=== PATIENT | female | born 1990 ===

== ENCOUNTER 2020-07-09 15:45 | Outpatient (REF) | payer MEDICARE, MEDICAID, SELFPAY | END 2020-07-09 15:46 | disposition home or self-care (01) | LOC: HO.LNP 15:45 | PROVIDERS: Visit Provider Nurse Practitioner Family | DX: Z20.828 Contact with and (suspected) exposure to other viral communicable diseases (principal); J40 Bronchitis, not specified as acute or chronic | CPT/HCPCS: U0003 ==

== ENCOUNTER 2020-09-23 17:11 | Outpatient (REF) | payer MEDICARE, MEDICAID, SELFPAY ==
[2020-09-23 17:44] LABS: MANUAL DIFF FLAG NO
[2020-09-23 17:54] LABS: Basophils Percent Auto 0.5 % (0-2); Eosinophils Absolute Auto 0.4 X10*3/uL (0.0-0.4); Eosinophils Percent Auto 5.7 % (0-4); Hematocrit 46.5 % (37-47); Hemoglobin 14.9 g/dl (12.0-16.0); Imm Gran Abs Auto 0.01 X10*3/uL (0.00-0.03); Imm Gran Pct Auto 0.2 % (0.0-0.4); Lymphocytes Absolute Auto 3.5 X10*3/uL (1.2-4.9); Lymphocytes Percent Auto 52.3 % (20-40); Mean Corpuscular Volume 90.6 fL (80-98); Mean Platelet Volume 9.2 fL (9.4-12.3); Monocytes Absolute Auto 0.6 X10*3/uL (0.1-1.2); Monocytes Percent Auto 9.3 % (2-11); Neutrophils Absolute Auto 2.1 X10*3/uL (2.0-8.3); Platelet Count 274 X10*3/uL (160-400); Red Blood Count 5.13 X10*6/uL (4.20-5.50); Red Cell Distribution Width 12.5 % (11.0-16.0); White Blood Count 6.6 X10*3/uL (4.8-10.8)
[2020-09-23 18:09] LABS: Alanine Aminotransferase 15 U/L (0-31); Albumin Level 4.7 g/dL (3.5-5.0); Alkaline Phosphatase 70 U/L (39-117); Anion Gap 12 (12-20); Aspartate Amino Transferase 14 U/L (5-31); Bilirubin Total 0.4 mg/dL (0.0-1.0); Blood Urea Nitrogen 10 mg/dL (9-16); Calcium 9.7 mg/dL (8.4-10.2); Carbon Dioxide 28 mmol/L (22-29); Chloride 104 mmol/L (96-108); Estimated Glomerular Filt Rate > 60; Glucose Random 92 mg/dL (60-115); Potassium 3.9 mmol/l (3.3-5.1); Sodium 140 mmol/L (135-145); Total Protein 7.4 g/dL (6.5-8.0)
[2020-09-23 18:30] LABS: Free T4 (Free Thyroxine) 1.07 ng/dL (0.71-1.85); Thyroid Stimulating Hormone 3.39 uIU/mL (0.32-4.0); Vitamin D 25-OH Total 27.3 ng/mL (>30)
== END 2020-09-23 17:12 | disposition home or self-care (01) ==
LOC: HO.LAB 17:11
PROVIDERS: PCP Internal Medicine; Visit Provider Internal Medicine
DX: R35.0 Frequency of micturition (principal); E03.9 Hypothyroidism, unspecified
CPT/HCPCS: 36415; 80053; 82306; 84439; 84443; 85025

== ENCOUNTER 2021-12-24 15:45 | Outpatient (REF) | payer MEDICARE, MEDICAID, SELFPAY ==
[2021-12-24 16:52] LABS: Alanine Aminotransferase 11 U/L (0-31); Albumin Level 4.3 g/dL (3.5-5.0); Alkaline Phosphatase 66 U/L (39-117); Anion Gap 12 (12-20); Aspartate Amino Transferase 13 U/L (5-31); Bilirubin Total 0.3 mg/dL (0.0-1.0); Blood Urea Nitrogen 9 mg/dL (9-16); Calcium 9.7 mg/dL (8.4-10.2); Carbon Dioxide 26 mmol/L (22-29); Chloride 104 mmol/L (96-108); Cholesterol 128 mg/dL; Estimated Glomerular Filt Rate > 60; Glucose Fasting 93 mg/dL (60-99); HDL Cholesterol 33 mg/dL; LDL Cholesterol Calculated 86 mg/dl; Potassium 4.1 mmol/L (3.3-5.1); Sodium 138 mmol/L (135-145); Total Protein 7.1 g/dL (6.5-8.0); Triglycerides 48 mg/dL
[2021-12-24 17:08] LABS: Appearance Urine CLEAR; Color Urine YELLOW; Glucose Urine UA NEG (NEG); Leukocyte Esterase Urine 1+ (NEG); Nitrite Urine NEG (NEG); UACC Culture Trigger YES; Urine Blood NEG (NEG); Urine Ketones NEG (NEG); Urine Protein NEG (NEG-TRACE)
[2021-12-24 17:31] LABS: RBC Urine 0-2 /HPF (0); WBC Urine 0-2 /HPF (0-4)
[2021-12-24 17:32] LABS: Squamous Epithelial Cell Urine TRACE /LPF
== END 2021-12-24 15:46 | disposition home or self-care (01) ==
LOC: HO.LAB 15:45
PROVIDERS: Nurse Practitioner Family; PCP Internal Medicine; Visit Provider Internal Medicine
DX: R35.0 Frequency of micturition (principal); Z13.220 Encounter for screening for lipoid disorders; Z13.1 Encounter for screening for diabetes mellitus
CPT/HCPCS: 36415; 80053; 80061; 81001; 87086

== ENCOUNTER → 2022-04-22 11:04 | Outpatient (BNVA) | payer MEDICARE, MEDICAID, SELFPAY | PROVIDERS: PCP Internal Medicine; Visit Provider Urology | DX: R32 Unspecified urinary incontinence (principal); R35.0 Frequency of micturition; R39.11 Hesitancy of micturition; R39.15 Urgency of urination; R15.9 Full incontinence of feces; Z79.899 Other long term (current) drug therapy | CPT/HCPCS: 51798; 99212 ==

== ENCOUNTER 2022-11-04 11:42 | Outpatient (REF) | payer MEDICARE, MEDICAID, SELFPAY ==
[2022-11-04 12:10] LABS: Appearance Urine Clear; Color Urine Yellow; Glucose Urine UA Negative (Negative); Leukocyte Esterase Urine Trace (Negative); Nitrite Urine Negative (Negative); PH 6.5 (5.0-9.0); UMIC TRIGGER UACC YES; Urine Blood Negative (Negative); Urine Ketones Negative (Negative); Urine Protein Negative (Neg-Trace)
[2022-11-04 12:12] LABS: Bacteria Urine None Seen (None Seen); Hyaline Casts Urine 0-2 /LPF (0-2); RBC Urine 0-2 /HPF (0-2); Squamous Epithelial Cell Urine 0-2 /HPF (0-2); WBC Urine 0-5 /HPF (0-5)
== END 2022-11-04 11:43 | disposition home or self-care (01) ==
LOC: HO.LNP 11:42
PROVIDERS: Visit Provider Internal Medicine
DX: R82.90 Unspecified abnormal findings in urine (principal)
CPT/HCPCS: 81001; 81003

== ENCOUNTER 2022-11-19 15:09 | Outpatient (REF) | payer MEDICARE, MEDICAID, SELFPAY ==
[2022-11-19 17:40] LABS: Appearance Urine Clear; Color Urine Yellow; Glucose Urine UA Negative (Negative); Leukocyte Esterase Urine Trace (Negative); Nitrite Urine Negative (Negative); PH 6.5 (5.0-9.0); Specific Gravity - Urine 1.015 (1.005-1.025); UMIC TRIGGER UA YES; UMIC TRIGGER UACC YES; Urine Blood Negative (Negative); Urine Ketones Negative (Negative); Urine Protein Negative (Neg-Trace)
[2022-11-19 17:45] LABS: Bacteria Urine None Seen (None Seen); Hyaline Casts Urine 0-2 /LPF (0-2); RBC Urine 0-2 /HPF (0-2); Squamous Epithelial Cell Urine 0-2 /HPF (0-2); WBC Urine 0-5 /HPF (0-5)
[2022-11-19 17:47] LABS: Hematocrit 45.6 % (37.0-47.0); Hemoglobin 14.5 g/dl (12.0-16.0); Mean Corpuscular HGB Conc 31.8 g/dl (31.0-35.0); Mean Corpuscular Hemoglobin 28.5 pg (27.0-33.0); Mean Corpuscular Volume 89.8 fL (80.0-98.0); Mean Platelet Volume 9.3 fL (9.4-12.3); Platelet Count 298 X10*3/uL (160-400); Red Blood Count 5.08 X10*6/uL (4.20-5.50); Red Cell Distribution Width 13.1 % (11.0-16.0); White Blood Count 7.5 X10*3/uL (4.8-10.8)
[2022-11-19 18:09] LABS: Alanine Aminotransferase 17 U/L (0-31); Albumin Level 4.3 g/dL (3.5-5.0); Alkaline Phosphatase 73 U/L (39-117); Anion Gap 12 (12-20); Aspartate Amino Transferase 18 U/L (5-31); Bilirubin Direct < 0.2 mg/dL (0.0-0.5); Bilirubin Total 0.4 mg/dL (0.0-1.0); Blood Urea Nitrogen 11 mg/dL (9-16); Calcium 9.4 mg/dL (8.4-10.2); Carbon Dioxide 27 mmol/L (22-29); Chloride 104 mmol/L (96-108); Cholesterol 139 mg/dL; Estimated Glomerular Filt Rate > 60; Glucose Random 87 mg/dL (60-115); HDL Cholesterol 33 mg/dL; LDL Cholesterol Calculated 92 mg/dl; Potassium 4.1 mmol/L (3.3-5.1); Sodium 139 mmol/L (135-145); Triglycerides 71 mg/dL
[2022-11-19 18:39] LABS: Folate 8.5 ng/mL (> or = 4.0); Free T4 (Free Thyroxine) 1.01 ng/dL (0.71-1.85); Thyroid Stimulating Hormone 3.47 uIU/mL (0.32-4.0); Vitamin B12 450 pg/mL (200-900)
== END 2022-11-19 15:10 | disposition home or self-care (01) ==
LOC: HO.LAB 15:09
PROVIDERS: PCP Internal Medicine; Visit Provider Internal Medicine
DX: E03.9 Hypothyroidism, unspecified (principal); R53.83 Other fatigue
CPT/HCPCS: 36415; 80048; 80061; 80076; 81001; 82607; 82746; 84439; 84443; 85027

== ENCOUNTER 2023-04-16 10:02 | Outpatient (AMB) | payer MEDICARE, MEDICAID, SELFPAY ==
[2023-04-16 10:03] VITALS: BP 118/74; PULSE 114; O2SAT 100; BMI 29.5
--- NOTE | 2023-04-16 10:03 | AM.OFFVISMDC ---
Intake Vital Signs 04/16/23 10:03 Height 5 ft 1 in Weight 156 lb BMI 29.5 BP 118/74 Blood Pressure Location Lt brachial Position Sitting Pulse 114 H Pulse Source Pulse Oximeter Temp Source Skin Pulse Oximetry (%) 100 Oxygen Delivery Method Room Air Intake Visit Reasons: SAWV Intake Note: Patient is here for an Annual Wellness Visit. Trip Rider Required: No Allergies cephalexin [From KEFLEX] Allergy (Unknown, Verified 04/16/23 10:21) RASH nitrofurantoin [From MACROBID] Allergy (Unknown, Verified 04/16/23 10:21) RASH Medication List - Last Reconciled 04/16/23 by Jaylene Persaud, ROGER acetaminophen ER (8 Hour Pain Reliever) 650 mg PO Q8H PRN amitriptyline 25 mg PO BEDTIME 90 days benztropine 1 mg PO BID carbamide peroxide 6.5% (Debrox) 5 drps otic (ears) Q12H 4 days cholecalciferol (vitamin D3) 50 mcg PO DAILY 90 days compr.stocking,thigh,short,med As directed dextromethorphan polistirex ER (Delsym 12 hour) 10 mL PO Q12H PRN diaper,brief,adult,disposable As directed fluocinolone acetonide oil 0.01% (DermOtic Oil) 5 drps otic (ears) BID guanfacine ER 3 mg PO DAILY lanolin szlmnqr-dc-u.pet-ceres (Eucerin topical cream) 1 appl topical DAILY PRN levothyroxine 25 mcg PO QAM lorazepam (Ativan) 1 mg PO .QD PRN medroxyprogesterone (Depo-Provera) 150 mg IM [id number] mirabegron ER 25 mg PO DAILY 30 days polyethylene glycol 3350 (Miralax) 17 grams PO DAILY 90 days [pull ups medium As directed] risperidone mg PO BID terazosin 1 mg PO BEDTIME 30 days trazodone 100 mg PO BEDTIME Fall Risk Assessment Fall risk assessment: No Falls in past year Date Fall Risk Assessed: 04/16/23 HPI SAWV HPI Details Patient is a 32-year-old female who presents today for subsequent wellness visit. Patient is accompanied by jail workers. Medical history is significant for mental and behavioral problem, autism, hypothyroid, urinary incontinence, hearing deficit, and vitamin-D deficiency. Patient is up-to-date with immunizations. Patient is followed by gynecology (Avis Marion CNM) for Depo-Provera shots and jail workers will talk to gynecology in regards to next Pap smear for the patient, they think patient never had a Pap smear in the past. [place] of care was reviewed with home group workers and they were provided with a screening schedule.? Patient has a guardian who is her healthcare proxy.? [facility] and HCP forms were given to home group personnel for guardian. [facility] Medical History Autism Constipation Frequency of micturition Fungal dermatitis Hypothyroid Impacted cerumen of both ears Leg swelling Leukopenia Mental and behavioral problem Urinary hesitancy Urinary urgency Vitamin D deficiency Surgical History No pertinent past surgical history Family History Father No problems noted. Mother Drug addiction Brain mass Breast cancer Maternal Grandmother Breast cancer Maternal Uncle Colon cancer Other Mental health disorder Substance use disorder Social History Housing: Other (Custodial) Alcohol intake: never Patient Tobacco Use Status: Never used Tobacco e-Cigarette/Vaping Use: Never Used Current occupational status: disabled Cognitive needs: Yes Hearing needs: Yes Vision needs: No Questionnaire Medicare Wellness Checkup What [age] 65-69 (30) What gender do you identify with?: female During the past 4 weeks, how much have you been bothered by emotional problems such as feeling anxious, depressed, irritable, sad or downhearted, and blue?: not at all During the past 4 weeks, has your physical & emotional health limited your social activities with family, friends, neighbors, or groups?: not at all During the past 4 weeks, how much bodily pain have you generally had?: no pain During the past 4 weeks, was someone available to help you if you needed & wanted help?: no, not at all During the past 4 weeks, what was the hardest physical activity you could do for at least 2 minutes?: moderate Can you get to places out of walking distance without help? (For eg., can you travel alone on buses, taxis or drive your car?): No Can you go shopping for groceries or clothes without someone's help?: No Can you prepare your own meals?: No Can you do your housework without help?: No Because of any health problems, do you need the help of another person with your personal care needs such as eating, bathing, dressing or getting around the house?: Yes Can you handle your own money without help?: No During the past 4 weeks, how would you rate your health in general?: very good During the past 4 weeks how have things been going for you?: pretty well Are you having difficulties driving your car?: not applicable, I don't use a car Do you always fasten your seat belt when you are in a car?: yes, usually During past 4 weeks, have you been bothered by the following: never: Falling or dizzy when standing up, Sexual problems?, Trouble eating well?, Teeth or denture problems? and Tiredness or fatigue? Have you fallen 2 or more times in the past year?: Yes Are you a smoker?: no During the past 4 weeks, how many drinks of wine, beer, or other alcoholic beverages did you have?: no alcohol at all Do you exercise for about 20 minutes 3 or more times a week?: yes, some of the time Have you been given information to help with the following?: yes: Keeping track of your medications? and no: Hazards in your house that might hurt you? How often do you have trouble taking medicines the way you have been told to take them?: I always take medicine as prescribed How confident are you that you can control & manage most of your health problems?: very confident What is your race?: Black or Mini Mental State Exam (MMSE) Orientation What is the (year) (season) (date) (day) (month)?: month (a and o to self only ) Score Score: 1 Activity of Daily Living Bathing - sponge bath, tub bath or shower: receives help in bathing more than one body part (or not bathed) Dressing - getting clothes from closets & drawers, including inner/outer garments & fasteners.: receives help getting clothes or getting dressed, or stays undressed Toileting - going to the 'toilet room' for urine/bowel elimination & cleaning self/arranging clothes: receives help going to toilet room, cleaning self or arranging clothes Transfer: moves in & out of bed and chair without help (may use support object) Continence: supervision helps urination/bowel control; catheter use; incontinent Feeding: feeds self without help Total Score: 3 Information obtained from: informant Using telephone: dependent Traveling: dependent Shopping: needs assistance Preparing meals: dependent Housework: dependent Taking medicine: dependent Managing money: dependent PHQ-9 Over the last 2 weeks, how often have you been bothered by any of the following problems? 1. Little interest or pleasure in doing things: not at all 2. Feeling down, depressed, or hopeless: not at all 3. Trouble falling or staying asleep, or sleeping too much: not at all 4. Feeling tired or having little energy: not at all 5. Poor appetite or overeating: not at all 6. Feeling bad about yourself - or that you are a failure or have let yourself or your family down: not at all 7. Trouble concentrating on things, such as reading the newspaper or watching television: not at all 8. Moving or speaking so slowly that other people could have noticed. Or the opposite - being so fidgety or restless that you have been moving around a lot more than usual: not at all 9. Thoughts that you would be better off or of hurting yourself in some way: not at all Total score: 0 Depression Screening Interpretation: Negative 82216 - PHQ-9 Billing: Yes Source: Developed by Drs. Isauro Amin, Erickson Adame and colleagues, with an educational orlando from [employer]. COLBY-7 AMB Questionnaire COLBY-7 Date COLBY - 7 assessed: 10/07/22 Source: Developed by Ana Otoole Kurt Kroenke and colleagues, with an educational orlando from [employer]. AUDIT C Alcohol Use Questionnaire (AUDIT-C) 1. How often do you have a drink containing alcohol?: Never 3. How often do you have six or more drinks on one occasion?: Never Total Score: 0 Score Reviewed/Action Taken: No Thrive Questionnaire Date Thrive assessed: 10/07/22 Physical Exam Vital Signs: Last Vital Signs Pulse 114 H 04/16/23 10:03 BP 118/74 04/16/23 10:03 Pulse Ox 100 04/16/23 10:03 Oxygen Delivery Method Room Air 04/16/23 10:03 BMI result Body Mass Index 29.5 Const General: cooperative and no acute distress Orientation/consciousness: oriented to person HEENT Other: Whisper test: fail Neuro Other: Balance: Normal Get up and walk: unable to Romberg: negative Tandem gait: unable to General: oriented to person Assessment & Plan Assessment & Plan (1) Adult general medical exam: Code(s): Z00.00 - Encounter for general adult medical examination without abnormal findings (2) Mental and behavioral problem: Code(s): F48.9 - Nonpsychotic mental disorder, unspecified; F69 - Unspecified disorder of adult personality and behavior Plan: Continue to follow-up with psychiatry (3) Autism: Code(s): F84.0 - Autistic disorder Plan: Continue to follow-up with psychiatry (4) Hypothyroid: Code(s): E03.9 - Hypothyroidism, unspecified Qualifiers: Hypothyroidism type: acquired Qualified Code(s): E03.9 - Hypothyroidism, unspecified Plan: Levothyroxine 25 mcg daily (5) Urinary incontinence: Code(s): R32 - Unspecified urinary incontinence Plan: Continue to follow-up with urology Dr. Cunningham Medications: Refilled acetaminophen ER (8 Hour Pain Reliever) 650 mg PO Q8H PRN 90 tabs 11RF fever or pain Quality Reporting (2019) Fall Risk Screening ([facility] 139) Last assessed Fall Risk: 04/16/23 Fall risk assessment: No Falls in past year Depression/Bipolar (159/160/161/177) PHQ-9: Total score: 0 Coding Level of Care Code Medicare Subsequent (G0439) Diagnoses Adult general medical exam Z00.00 Mental and behavioral problem F48.9; F69 Autism F84.0 Hypothyroid E03.9 Hypothyroidism type: acquired Urinary incontinence R32 CPT Codes Advance Care Planning - Time spent: 1-15 minutes, not on file ([id number]) Advance Care Planning Date of discussion: 04/16/23 Who was present: jail workers and nonprofit manager, forms provided for guardian Forms completed: None Time spent: 1-15 minutes, not on file Actual minutes spent: 2 Did not discuss due to Cultural/Spiritual beliefs: No
== END 2023-04-16 10:38 | disposition home or self-care (01) ==
PROVIDERS: Visit Provider Nurse Practitioner Family
DX: Z00.00 Encounter for general adult medical examination without abnormal findings (principal); F48.9 Nonpsychotic mental disorder, unspecified; F84.0 Autistic disorder; E03.9 Hypothyroidism, unspecified; F69 Unspecified disorder of adult personality and behavior; R32 Unspecified urinary incontinence
CPT/HCPCS: 1124F; G0439

== ENCOUNTER → 2023-04-20 11:45 | Outpatient (BNVA) | payer MEDICARE, MEDICAID, SELFPAY | PROVIDERS: PCP Internal Medicine; Visit Provider Urology ==

== ENCOUNTER 2023-04-20 11:48 | Outpatient (AMB) | payer MEDICARE, MEDICAID, SELFPAY ==
--- NOTE | 2023-04-20 11:46 | MHC.OFFVIS ---
Intake Intake Visit Reasons: Incontinence Yearly follow up Intake Note: Patient is present for Follow Up Urology Med: Myrbetriq, Terazosin Antibiotic Allergy: Keflex, Macrobid Blood Thinner: None Pharmacy: [place] Allergies cephalexin [From KEFLEX] Allergy (Unknown, Verified 04/16/23 10:21) RASH nitrofurantoin [From MACROBID] Allergy (Unknown, Verified 04/16/23 10:21) RASH Medication List - Last Reconciled 04/20/23 by Leonel Cunningham MD acetaminophen ER (8 Hour Pain Reliever) 650 mg PO Q8H PRN amitriptyline 25 mg PO BEDTIME 90 days benztropine 1 mg PO BID carbamide peroxide 6.5% (Debrox) 5 drps otic (ears) Q12H 4 days cholecalciferol (vitamin D3) 50 mcg PO DAILY 90 days compr.stocking,thigh,short,med As directed dextromethorphan polistirex ER (Delsym 12 hour) 10 mL PO Q12H PRN diaper,brief,adult,disposable As directed fluocinolone acetonide oil 0.01% (DermOtic Oil) 5 drps otic (ears) BID guanfacine ER 3 mg PO DAILY lanolin rqqpfuo-wm-r.pet-ceres (Eucerin topical cream) 1 appl topical DAILY PRN levothyroxine 25 mcg PO QAM lorazepam (Ativan) 1 mg PO .QD PRN medroxyprogesterone (Depo-Provera) 150 mg IM [id number] mirabegron ER 25 mg PO DAILY 90 days polyethylene glycol 3350 (Miralax) 17 grams PO DAILY 90 days [pull ups medium As directed] risperidone mg PO BID terazosin 1 mg PO BEDTIME 90 days trazodone 100 mg PO BEDTIME HPI HPI Comments History of Present Illness Details Tres is a pleasant female. Accompanied by business case analyst. halfway. Autistic with minimal verbal responses. She is seen for the following urologic conditions - urinary incontinence - urinary urgency frequency Yearly review Accompanied by case workers Requesting extra-large diaper Will continue with Myrbetriq 25 and terazosin 1 mg Does initiate toileting of own accord Urinary urgency and frequency Background with fecal incontinence as well Prior evaluation for InterStim stage I but concerns regarding compliance Had been on Myrbetriq 50 Displaying signs of urinary hesitancy Reduce Myrbetriq to 25 mg daily Add 1 mg terazosin May have had too much MiraLax Make sure encourage fluids They would like diapers changed to large 12 month follow-up [facility] Medical History Autism Constipation Frequency of micturition Fungal dermatitis Hypothyroid Impacted cerumen of both ears Leg swelling Leukopenia Mental and behavioral problem Urinary hesitancy Urinary urgency Vitamin D deficiency Surgical History No pertinent past surgical history Family History Father No problems noted. Mother Drug addiction Brain mass Breast cancer Maternal Grandmother Breast cancer Maternal Uncle Colon cancer Other Mental health disorder Substance use disorder Social History Housing: Other (Senior Care) Alcohol intake: never Patient Tobacco Use Status: Never used Tobacco e-Cigarette/Vaping Use: Never Used Current occupational status: disabled Cognitive needs: Yes Hearing needs: Yes Vision needs: No Review of Systems Const Denies chills and Denies fever(s) Card Reports no additional complaints and Denies syncope Resp Denies cough GI Denies abdominal pain and Denies heartburn Reports as per HPI and Denies change in libido Neuro Denies syncope Psych Denies change in libido Endo Denies change in libido Physical Exam Const General: cooperative, healthy appearing, comfortable and no acute distress Orientation/consciousness: patient oriented x3 HEENT Face and sinus: Yes normal facial exam Mouth: moist mucous membranes Neck Neck: Yes normal visual inspection, Yes full ROM and Yes trachea midline Chest Chest palpation & inspection: normal inspection of the chest Resp Effort & Inspection: normal respiratory effort, able to speak in complete sentences and no respiratory distress GI Inspection: Yes normal to inspection Back/Spine/Pelvis Cervical Spine: normal cervical lordosis Thoracic/Lumbar Spine: thoracic and lumbar spine normal to inspection Skin General skin exam: no rashes or lesions noted Neuro General: patient oriented x3, gait normal, tone normal and moves all extremities Extrem General: Yes normal to inspection and Yes capillary refill normal Assessment & Plan Assessment & Plan (1) Urinary incontinence: Code(s): R32 - Unspecified urinary incontinence Plan 12 month follow-up Patient Instructions: Imaging studies, laboratory and physical exam results were discussed and reviewed in detail. No major barriers to patient understanding were identified. An opportunity to ask questions regarding the treatment plan was provided. All questions were answered. The patient expressed understanding and agreement with the above treatment plan. The patient is aware they should contact our office by phone for worsening of their current condition or the appearance of new urologic symptoms. Compliance is encouraged with any medications and followup testing that is ordered. It is a privilege to participate in the urologic care of your patient. If you have any questions or concerns regarding treatment for the above conditions, or other urologic issues, please do not hesitate to contact me. The office telephone contact is [phone]. This note is constructed using voice recognition software. While every effort has been made to ensure accuracy color maker formulator errors may have been included. Yours sincerely, Dr Leonel Cunningham MD, [facility] - Urology Providers of Expert, Compassionate Care for the Genitourinary System Coding Level of Care Code Est Pt Level 4 (41367) Diagnoses Urinary incontinence R32
== END 2023-04-20 12:04 | disposition home or self-care (01) ==
PROVIDERS: PCP Internal Medicine; Visit Provider Urology
DX: R32 Unspecified urinary incontinence (principal)
CPT/HCPCS: 99213

== ENCOUNTER 2023-06-08 13:07 | Outpatient (AMB) | payer MEDICARE, MEDICAID, SELFPAY ==
--- NOTE | 2023-06-08 13:09 | MHC.PC.OV ---
Vital Signs 06/08/23 13:10 Height 5 ft 1 in Weight 165 lb 4 oz BMI 31.2 BP 122/68 Blood Pressure Location Rt brachial Position Sitting Pulse 136 H Pulse Source Pulse Oximeter Pulse Oximetry (%) 99 Oxygen Delivery Method Room Air Intake Visit Reasons: dry skin Allergies cephalexin [From KEFLEX] Allergy (Unknown, Verified 06/08/23 13:14) RASH nitrofurantoin [From MACROBID] Allergy (Unknown, Verified 06/08/23 13:14) RASH Tobacco use date assessed: 10/07/22 Dental Screening Dental Screen Date: 06/08/23 Did you have a dental visit in the last 12 months?: Yes Did you have a dental problem in the last 6 months where you did not have access to dental care?: No Was dental information given to patient?: No HPI dry skin HPI Details 32-year-old Obese female with autism and hypothyroidism coming in for follow-up. Last seen in December 2022 with her urinary incontinence patient was referred to Urology patient has been placed on myrbetriq and terazosin. rash behind ear intemittent and asking for cream - does have vaseline but occ will need better cream PFSH Medical History Urinary hesitancy Urinary urgency Impacted cerumen of both ears Vitamin D deficiency Fungal dermatitis Leg swelling Frequency of micturition Mental and behavioral problem Autism Leukopenia Hypothyroid Constipation Surgical History No pertinent past surgical history Family History Father No problems noted. Mother Drug addiction Brain mass Breast cancer Maternal Grandmother Breast cancer Maternal Uncle Colon cancer Other Mental health disorder Substance use disorder Social History Housing: Other (Jail) Alcohol intake: never Patient Tobacco Use Status: Never used Tobacco e-Cigarette/Vaping Use: Never Used Current occupational status: disabled Cognitive needs: Yes Hearing needs: Yes Vision needs: No Questionnaire PHQ-9 Over the last 2 weeks, how often have you been bothered by any of the following problems? 1. Little interest or pleasure in doing things: not at all 2. Feeling down, depressed, or hopeless: not at all 3. Trouble falling or staying asleep, or sleeping too much: not at all 4. Feeling tired or having little energy: not at all 5. Poor appetite or overeating: not at all 6. Feeling bad about yourself - or that you are a failure or have let yourself or your family down: not at all 7. Trouble concentrating on things, such as reading the newspaper or watching television: not at all 8. Moving or speaking so slowly that other people could have noticed. Or the opposite - being so fidgety or restless that you have been moving around a lot more than usual: not at all 9. Thoughts that you would be better off or of hurting yourself in some way: not at all Total score: 0 Depression Screening Interpretation: Negative Depression Screening Done: Yes [id number] - PHQ-9 Billing: Yes Source: Developed by Drs. Isauro Amin, Ana Chun, Erickson Fried and colleagues, with an educational orlando from [employer]. Thrive Questionnaire Date Thrive assessed: 10/07/22 I am a: Patient What is your living situation today?: I have a steady place to live Within the past 12 months, did the food you bought not last and you didn't have the money to get more?: Never true Within the past 12 months, did you worry whether your food would run out before you got money to buy more?: Never true Currently or been in a relationship where the following occur: no concerns reported AUDIT C Alcohol Use Questionnaire (AUDIT-C) 1. How often do you have a drink containing alcohol?: Never 3. How often do you have six or more drinks on one occasion?: Never Total Score: 0 Score Reviewed/Action Taken: No COLBY-7 AMB Questionnaire COLBY-7 Date COLBY - 7 assessed: 10/07/22 Feeling nervous, anxious, or on edge: 0 = Not at all Not being able to stop or control worryin = Not at all Worrying too much about different things: 0 = Not at all Trouble relaxin = Not at all Being so restless that it is hard to sit still: 0 = Not at all Becoming easily annoyed or irritable: 0 = Not at all Feeling afraid as if something awful might happen: 0 = Not at all Total COLBY-7 score (0-4 normal; 5-9 mild; 10-14 moderate; 15-21 severe): 0 Source: Developed by Drs. Isauro Amin, Ana Chun, Erickson Fried and colleagues, with an educational orlando from [employer]. Physical exam (Primary Care) Vital Signs: Last Vital Signs Pulse 136 H 06/08/23 13:10 BP 122/68 06/08/23 13:10 Pulse Ox 99 06/08/23 13:10 Oxygen Delivery Method Room Air 06/08/23 13:10 BMI result Body Mass Index 31.2 Tobacco/Smoking Status: Tobacco use Status Tobacco use date assessed 10/07/22 06/08/23 13:17 Patient Tobacco Use Status Never used Tobacco 06/08/23 13:17 Tobacco use type 04/09/21 17:14 e-Cigarette/Vaping Use Never Used 06/08/23 13:17 PHQ-9: PHQ-9 Score PHQ-9: Total score 0 06/08/23 13:38 Depression Screening Interpretation: Negative Thrive Assessment: Date of Thrive Assessment Date Thrive assessed 10/07/22 06/08/23 13:17 Currently or been in a relationship where the following occur: no concerns reported Const General: alert; No acute distress Eyes Conjunctivae: conjunctivae normal Resp Auscultation: clear to auscultation bilaterally Cardio Rate: regular rate Rhythm: regular rhythm GI Inspection: Yes normal to inspection Extrem General: Yes normal to inspection and No edema Office Procedures Flu Questionnaire Does the patient have a severe egg allergy?: No Does the patient have severe life threatening allergies?: No Does the patient have a fever or illness today?: No Has the patient ever had Guillain-[place] Syndrome?: No Has the patient ever had any past reaction to a flu shot?: No Immunizations flu vacc [id number] 6mos up(PF) 60 mcg(15 mcgx4)/0.5 mL IM syringe Performing Provider: Christiano Cronin MD [facility] Administered by: Adelaide Khoury CMA on 06/08/23 13:48 Dose Route Admin Location Dispensed Lot Number Expiration Date NDC Environmental Safety Specialist 0.5 mL IM Left Deltoid 0.5 mL [id number] 02/27/24 [id number] Revalesio VIS Given Date VIS Provided VIS Publication Date 06/08/23 Single Vaccine 21 Eligibility Eligibility Date Funding Source Not [facility] Eligible 06/08/23 Private Assessment and Plan Assessment & Plan (1) Obesity: Code(s): E66.9 - Obesity, unspecified Plan: Discussed about diet and exercise (2) Urinary incontinence: Code(s): R32 - Unspecified urinary incontinence Plan: Patient has been placed on myrbetriq and terazosin under urology (3) Mental and behavioral problem: Code(s): F48.9 - Nonpsychotic mental disorder, unspecified; F69 - Unspecified disorder of adult personality and behavior Plan: Continue with psychiatry evaluation and management (4) Autism: Code(s): F84.0 - Autistic disorder Plan: Continue with psychiatry evaluation and management (5) Hypothyroid: Code(s): E03.9 - Hypothyroidism, unspecified Qualifiers: Hypothyroidism type: acquired Qualified Code(s): E03.9 - Hypothyroidism, unspecified Plan: Continue with thyroid medication October 2022 last tested (6) Eczema: Comment: behind ears Code(s): L30.9 - Dermatitis, unspecified Plan: cream to place BID prn Orders: Orders Complete Blood Count Auto Diff 6 Months E03.9 - Hypothyroidism, unspecified Free T4 (Free Thyroxine) 6 Months E03.9 - Hypothyroidism, unspecified Thyroid Stimulating Hormone 6 Months E03.9 - Hypothyroidism, unspecified Influenza [id number] Immunization Today Z23 - Encounter for immunization Comprehensive Met. Panel 6 Months E03.9 - Hypothyroidism, unspecified Vitamin B12 and Folate 6 Months E03.9 - Hypothyroidism, unspecified Lipid Panel 6 Months E03.9 - Hypothyroidism, unspecified, E78.00 - Pure hypercholesterolemia, unspecified Medications: New triamcinolone acetonide 0.5% no longer than 7 days continuously 1 appl topical DAILY PRN 15 grams 4RF ear rash L30.9 - Dermatitis, unspecified triamcinolone acetonide 0.5% no longer than 7 days continuously 8 am and 8 pm 1 appl topical DAILY PRN 15 grams 4RF ear rash L30.9 - Dermatitis, unspecified Coding Level of Care Code Est Pt Level 4 (00536) Diagnoses Obesity E66.9 Urinary incontinence R32 Mental and behavioral problem F48.9; F69 Autism F84.0 Acquired hypothyroidism E03.9 Hypothyroidism type: acquired Eczema L30.9
[2023-06-08 13:10] VITALS: BP 122/68; PULSE 136; O2SAT 99; BMI 31.2
== END 2023-06-08 14:20 | disposition home or self-care (01) ==
PROVIDERS: PCP Internal Medicine; Visit Provider Internal Medicine
DX: R32 Unspecified urinary incontinence (principal); E66.9 Obesity, unspecified; Z68.31 Body mass index [BMI] 31.0-31.9, adult; F48.9 Nonpsychotic mental disorder, unspecified; Z23 Encounter for immunization; F69 Unspecified disorder of adult personality and behavior; F84.0 Autistic disorder; E03.9 Hypothyroidism, unspecified; L30.9 Dermatitis, unspecified
CPT/HCPCS: 90471; 90686; 99214

== ENCOUNTER 2023-06-29 15:07 | Outpatient (REF) | payer MEDICARE, MEDICAID, SELFPAY | END 2023-06-29 15:08 | disposition home or self-care (01) | LOC: HO.SH 15:07 | PROVIDERS: Visit Provider Internal Medicine | DX: Z01.118 Encounter for examination of ears and hearing with other abnormal findings (principal); H93.293 Other abnormal auditory perceptions, bilateral | CPT/HCPCS: 92567; 92579; 92587 ==

== ENCOUNTER 2024-04-20 10:13 | Outpatient (AMB) | payer MEDICARE, MEDICAID, SELFPAY ==
[2024-04-20 10:20] VITALS: BP 128/76; PULSE 108; O2SAT 99; BMI 30.4
--- NOTE | 2024-04-20 10:20 | A.OFFVIS_ITS ---
Intake Vital Signs 04/20/24 10:20 Height 5 ft 1 in Weight 161 lb BMI 30.4 BP 128/76 Blood Pressure Location Lt brachial Position Sitting Pulse 108 H Pulse Source Pulse Oximeter Pulse Oximetry (%) 99 Oxygen Delivery Method Room Air Intake Visit Reasons: [facility] G0439 Allergies cephalexin [From KEFLEX] Allergy (Unknown, Verified 04/20/24 10:21) RASH nitrofurantoin [From MACROBID] Allergy (Unknown, Verified 04/20/24 10:21) RASH Medication List - Last Reconciled 04/20/24 by Christiano Cronin MD acetaminophen ER (8 Hour Pain Reliever) 650 mg PO Q8H PRN amitriptyline 25 mg PO BEDTIME 90 days bacitracin zinc (Antibiotic (bacitracin zinc)) 1 appl topically use topically every 12 hours as needed for ear, lacerations, cuts, scrapes; benztropine 1 mg PO BID cholecalciferol (vitamin D3) 50 mcg PO DAILY 90 days compr.stocking,thigh,short,med As directed dextromethorphan polistirex ER 10 mL PO Q12H PRN diaper,brief,adult,disposable As directed fluocinolone acetonide oil 0.01% (DermOtic Oil) 5 drps otic (ears) BID guanfacine ER 3 mg PO DAILY lanolin [id number]-vw-z.pet-ceres (Eucerin topical cream) 1 appl topical DAILY PRN levothyroxine 25 mcg PO QAM lorazepam (Ativan) 1 mg PO .QD PRN medroxyprogesterone (Depo-Provera) 150 mg IM [id number] mirabegron ER 25 mg PO DAILY 90 days oxcarbazepine 300 mg PO TID polyethylene glycol 3350 (Miralax) 17 grams PO DAILY 90 days [pull ups medium As directed] risperidone mg PO BID terazosin 1 mg PO BEDTIME 90 days trazodone 100 mg PO BEDTIME triamcinolone acetonide 0.5% 1 appl topical DAILY PRN HPI V G0439 HPI Details 33-year-old obese autistic female with h ypothyroid gait instability coming in for an annual well visit last seen in May 2023. Patient does see Podiatry last seen in May having onychomycosis [facility] Medical History Urinary hesitancy Urinary urgency Impacted cerumen of both ears Vitamin D deficiency Fungal dermatitis Leg swelling Frequency of micturition Mental and behavioral problem Autism Leukopenia Hypothyroid Constipation Surgical History No pertinent past surgical history Family History Father No problems noted. Mother Drug addiction Brain mass Breast cancer Maternal Grandmother Breast cancer Maternal Uncle Colon cancer Other Mental health disorder Substance use disorder Social History Housing: Other (Fdc) Alcohol intake: never Patient Tobacco Use Status: Never used Tobacco e-Cigarette/Vaping Use: Never Used Current occupational status: disabled Cognitive needs: Yes Hearing needs: Yes Vision needs: No Questionnaire Medicare Wellness Checkup What is your age?: 65-69 (18-64) What gender do you identify with?: female During the past 4 weeks, how much have you been bothered by emotional problems such as feeling anxious, depressed, irritable, sad or downhearted, and blue?: slightly During the past 4 weeks, has your physical & emotional health limited your social activities with family, friends, neighbors, or groups?: slightly During the past 4 weeks, how much bodily pain have you generally had?: mild pain During the past 4 weeks, was someone available to help you if you needed & wanted help?: yes, as much as I wanted During the past 4 weeks, what was the hardest physical activity you could do for at least 2 minutes?: very light Can you get to places out of walking distance without help? (For eg., can you travel alone on buses, taxis or drive your car?): No Can you go shopping for groceries or clothes without someone's help?: No Can you prepare your own meals?: No Can you do your housework without help?: No Because of any health problems, do you need the help of another person with your personal care needs such as eating, bathing, dressing or getting around the house?: Yes Can you handle your own money without help?: No During the past 4 weeks, how would you rate your health in general?: good During the past 4 weeks how have things been going for you?: pretty well Are you having difficulties driving your car?: not applicable, I don't use a car Do you always fasten your seat belt when you are in a car?: yes, usually During past 4 weeks, have you been bothered by the following: never: Falling or dizzy when standing up, Sexual problems? and Teeth or denture problems?, seldom: Trouble eating well?, sometimes: Tiredness or fatigue? and often: Problems using the telephone? Have you fallen 2 or more times in the past year?: No Are you afraid of falling?: No Are you a smoker?: no During the past 4 weeks, how many drinks of wine, beer, or other alcoholic beverages did you have?: no alcohol at all Do you exercise for about 20 minutes 3 or more times a week?: no, I usually do not exercise this much Have you been given information to help with the following?: yes: Keeping track of your medications? and no: Hazards in your house that might hurt you? How often do you have trouble taking medicines the way you have been told to take them?: I always take medicine as prescribed How confident are you that you can control & manage most of your health problems?: not very confident What is your race?: Black or PHQ-9 Over the last 2 weeks, how often have you been bothered by any of the following problems? 1. Little interest or pleasure in doing things: not at all 2. Feeling down, depressed, or hopeless: not at all 3. Trouble falling or staying asleep, or sleeping too much: not at all 4. Feeling tired or having little energy: not at all 5. Poor appetite or overeating: not at all 6. Feeling bad about yourself - or that you are a failure or have let yourself or your family down: not at all 7. Trouble concentrating on things, such as reading the newspaper or watching television: not at all 8. Moving or speaking so slowly that other people could have noticed. Or the opposite - being so fidgety or restless that you have been moving around a lot more than usual: not at all 9. Thoughts that you would be better off or of hurting yourself in some way: not at all Total score: 0 Depression Screening Interpretation: Negative Depression Screening Done: Yes 10759 - PHQ-9 Billing: Yes Source: Developed by Drs. Isauro Amin, Ana Chun, Erickson Fried and colleagues, with an educational orlando from [employer]. Review of Systems Const Denies poor appetite and Denies weakness Eyes Denies no additional complaints ENT Reports Normal hearing present, Denies dizziness, Denies nasal congestion, Denies tinnitus and Denies sore throat Card Denies chest pain, Denies syncope, Denies rapid heart rate and Denies dyspnea Resp Denies cough and Denies dyspnea GI Denies change in stool character, Reports constipation, Denies diarrhea, Denies nausea and Denies vomiting Denies urinary frequency, Denies difficulty voiding and Denies dysuria Neuro Reports Normal hearing present, Denies confusion, Denies dizziness, Denies syncope and Denies weakness Psych Denies confusion Physical Exam Vital Signs: Last Vital Signs Pulse 108 H 04/20/24 10:20 BP 128/76 04/20/24 10:20 Pulse Ox 99 04/20/24 10:20 Oxygen Delivery Method Room Air 04/20/24 10:20 BMI result Body Mass Index 30.4 Const General: No confusion Orientation/consciousness: No confusion HEENT Head: Yes normocephalic Ears: external ears normal and TM's normal bilaterally Face and sinus: Yes normal facial exam Mouth: moist mucous membranes Throat: Yes tonsils normal Eyes Conjunctivae: conjunctivae normal Pupils: Equal, round and reactive pupils present and Pupil accommodation reflex normal Direct Ophthalmoscopy: normal light reflex Neck Neck: No lymphadenopathy Thyroid: Thyroid normal Chest Chest palpation & inspection: normal inspection of the chest Resp Effort & Inspection: normal respiratory effort and no audible wheezes Auscultation: clear to auscultation bilaterally, no crackles, no wheezes and lung sounds not diminished Cardio Rate: regular rate Rhythm: regular rhythm Peripheral pulses: radial pulses present and dorsalis pedis present GI Palpation (GI): no masses Auscultation: normal bowel sounds and normoactive bowel sounds Rectal Exam - Female: deferred Skin General skin exam: no rashes or lesions noted Rashes: no rashes Neuro General: No confusion Cranial nerves: Yes Equal, round and reactive pupils present and Yes Normal hearing present Cognition (Neuro): normal cognition Gait exam (Neuro): Normal gait present Motor exam (neuro): 5/5 motor strength present throughout Deep tendon reflexes (DTR's): Right brachioradialis reflex intensity grade: 2+, Left brachioradialis reflex intensity grade: 2+, Right patellar reflex intensity grade: 2+ and Left patellar reflex intensity grade: 2+ Extrem General: No edema Assessment & Plan Assessment & Plan (1) Medicare annual wellness visit, subsequent: Code(s): Z00.00 - Encounter for general adult medical examination without abnormal findings Plan: Patient is advised to eat healthy, keep well hydrated, keep active and have adequate sleep. (2) Autism: Code(s): F84.0 - Autistic disorder Plan: Continue with follow-up with psychiatry (3) Hypothyroid: Code(s): E03.9 - Hypothyroidism, unspecified Qualifiers: Hypothyroidism type: acquired Qualified Code(s): E03.9 - Hypothyroidism, unspecified Plan: Continue with thyroid medication (4) Mental and behavioral problem: Code(s): F48.9 - Nonpsychotic mental disorder, unspecified; F69 - Unspecified disorder of adult personality and behavior Plan: Continue with psychiatric counseling and therapy. (5) Obesity: Code(s): E66.9 - Obesity, unspecified Qualifiers: Obesity type: due to excess calories Obesity classification: adult class 1 (BMI 30 - 34.9) Serious obesity comorbidity presence: without serious comorbidity Body mass index: BMI 30.0-30.9 Qualified Code(s): E66.09 - Other obesity due to excess calories; Z68.30 - Body mass index [BMI] 30.0-30.9, adult Plan: Continue with diet and exercise (6) Urinary incontinence: Code(s): R32 - Unspecified urinary incontinence Qualifiers: Urinary Incontinence type: unspecified incontinence Qualified Code(s): R32 - Unspecified urinary incontinence Plan: Patient is placed on Myrbetriq and terazosin Orders: Orders Comprehensive Met. Panel Today E03.9 - Hypothyroidism, unspecified Free T4 (Free Thyroxine) Today E03.9 - Hypothyroidism, unspecified Thyroid Stimulating Hormone Today E03.9 - Hypothyroidism, unspecified Vitamin D 25-OH Total Today E03.9 - Hypothyroidism, unspecified Complete Blood Count Auto Diff Today E03.9 - Hypothyroidism, unspecified Vitamin B12 and Folate Today E03.9 - Hypothyroidism, unspecified Quality Reporting (2019) Depression/Bipolar (159/160/161/177) PHQ-9: Total score: 0 Coding Level of Care Code Medicare Subsequent (G0439) Diagnoses Medicare annual wellness visit, subsequent Z00.00 Autism F84.0 Acquired hypothyroidism E03.9 Hypothyroidism type: acquired Mental and behavioral problem F48.9; F69 Class 1 obesity due to excess calories without serious comorbidity with body mass index (BMI) of 30.0 to 30.9 in adult E66.09; Z68.30 Obesity type: due to excess calories Obesity classification: adult class 1 (BMI 30 - 34.9) Serious obesity comorbidity presence: without serious comorbidity Body mass index: BMI 30.0-30.9 Urinary incontinence, unspecified type R32 Urinary Incontinence type: unspecified incontinence
== END 2024-04-20 11:06 | disposition home or self-care (01) ==
PROVIDERS: PCP Internal Medicine; Visit Provider Internal Medicine
DX: Z00.00 Encounter for general adult medical examination without abnormal findings (principal); F84.0 Autistic disorder; E03.9 Hypothyroidism, unspecified; F48.9 Nonpsychotic mental disorder, unspecified; F69 Unspecified disorder of adult personality and behavior; E66.09 Other obesity due to excess calories; Z68.30 Body mass index [BMI] 30.0-30.9, adult; R32 Unspecified urinary incontinence
CPT/HCPCS: G0439

== ENCOUNTER 2024-05-27 10:26 | Outpatient (REF) | payer MEDICARE, MEDICAID, SELFPAY ==
[2024-05-27 10:45] LABS: MANUAL DIFF FLAG NO
[2024-05-27 11:36] LABS: Basophils Percent Auto 0.3 % (0-2); Eosinophils Absolute Auto 0.1 X10*3/uL (0.0-0.4); Eosinophils Percent Auto 2.2 % (0-4); Hematocrit 42.7 % (37.0-47.0); Hemoglobin 14.4 g/dl (12.0-16.0); Imm Gran Abs Auto 0.01 X10*3/uL (0.00-0.03); Imm Gran Pct Auto 0.2 % (0.0-0.4); Lymphocytes Absolute Auto 2.7 X10*3/uL (1.2-4.9); Lymphocytes Percent Auto 44.4 % (20-40); Mean Corpuscular HGB Conc 33.7 g/dl (31.0-35.0); Mean Corpuscular Hemoglobin 29.9 pg (27.0-33.0); Mean Corpuscular Volume 88.6 fL (80.0-98.0); Mean Platelet Volume 9.1 fL (9.4-12.3); Monocytes Absolute Auto 0.6 X10*3/uL (0.1-1.2); Monocytes Percent Auto 10.2 % (2-11); Neutrophils Absolute Auto 2.6 x10*3/uL (2.0-8.3); Neutrophils Percent Auto 42.7 % (45-73); Platelet Count 320 X10*3/uL (160-400); Red Blood Count 4.82 X10*6/uL (4.20-5.50)
[2024-05-27 12:03] LABS: Alanine Aminotransferase 14 U/L (0-31); Albumin Level 4.3 g/dL (3.5-5.0); Alkaline Phosphatase 66 U/L (39-117); Anion Gap 11 (12-20); Aspartate Amino Transferase 15 U/L (5-31); Bilirubin Total 0.3 mg/dL (0.0-1.0); Blood Urea Nitrogen 7 mg/dL (9-16); Calcium 9.9 mg/dL (8.4-10.2); Carbon Dioxide 28 mmol/L (22-29); Chloride 105 mmol/L (96-108); Cholesterol 142 mg/dL (<200); Estimated Glomerular Filt Rate > 60; Glucose Random 94 mg/dL (60-115); HDL Cholesterol 34 mg/dL (>40); LDL Cholesterol Calculated 97 mg/dL (<100); Potassium 3.6 mmol/L (3.3-5.1); Sodium 140 mmol/L (135-145); Total Protein 7.3 g/dL (6.5-8.0); Triglycerides 59 mg/dL (<150)
[2024-05-27 12:23] LABS: Free T4 (Free Thyroxine) 0.96 ng/dL (0.71-1.85); Thyroid Stimulating Hormone 3.48 uIU/mL (0.32-4.0); Vitamin D 25-OH Total 81.4 ng/mL (>30)
[2024-05-27 12:27] LABS: Vitamin B12 399 pg/mL (200-900)
== END 2024-05-27 10:27 | disposition home or self-care (01) ==
LOC: HO.LAB 10:26
PROVIDERS: PCP Internal Medicine; Visit Provider Internal Medicine
DX: E03.9 Hypothyroidism, unspecified (principal); E78.00 Pure hypercholesterolemia, unspecified
CPT/HCPCS: 36415; 80053; 80061; 82306; 82607; 82746; 84439; 84443; 85025

== ENCOUNTER 2024-05-30 14:53 | Outpatient (AMB) | payer MEDICARE, MEDICAID, SELFPAY ==
--- NOTE | 2024-05-30 14:57 | A.OFFVIS_ITS ---
Intake Visit Reasons: 1Y Follow Up-incontinence Intake Note: Patient is present for 1y f/u incontinence Urology Medication:terazosin Antibiotic Allergy:none Blood Thinner:none Splitter Hand Required: No Allergies cephalexin [From KEFLEX] Allergy (Unknown, Verified 05/30/24 14:59) RASH nitrofurantoin [From MACROBID] Allergy (Unknown, Verified 05/30/24 14:59) RASH Medication List - Last Reconciled 05/30/24 by Leonel Cunningham MD acetaminophen ER (8 Hour Pain Reliever) 650 mg PO Q8H PRN amitriptyline 25 mg PO BEDTIME 90 days bacitracin zinc (Antibiotic (bacitracin zinc)) 1 appl topically use topically every 12 hours as needed for ear, lacerations, cuts, scrapes; benztropine 1 mg PO BID cholecalciferol (vitamin D3) 50 mcg PO DAILY 90 days compr.stocking,thigh,short,med As directed dextromethorphan polistirex ER 10 mL PO Q12H PRN diaper,brief,adult,disposable As directed fluocinolone acetonide oil 0.01% (DermOtic Oil) 5 drps otic (ears) BID guanfacine ER 3 mg PO DAILY lanolin ohxiplc-sx-m.pet-ceres (Eucerin topical cream) 1 appl topical DAILY PRN levothyroxine 25 mcg PO QAM lorazepam (Ativan) 1 mg PO .QD PRN medroxyprogesterone (Depo-Provera) 150 mg IM [id number] mirabegron ER 25 mg PO DAILY 90 days oxcarbazepine 300 mg PO TID polyethylene glycol 3350 (Miralax) 17 grams PO DAILY 90 days [pull ups medium As directed] risperidone mg PO BID terazosin 1 mg PO BEDTIME 90 days trazodone 100 mg PO BEDTIME triamcinolone acetonide 0.5% 1 appl topical DAILY PRN HPI Comments Details: Tres is a pleasant female. Accompanied by director of casework department. [facility]. Autistic with minimal verbal responses. She is seen for the following urologic conditions - urinary incontinence - urinary urgency frequency Yearly review Accompanied by case workers Will continue with Myrbetriq 25 and terazosin 1 mg Does initiate toileting of own accord Did discuss pelvic floor relaxation Suggest that she sits on the toilet backwards in order to more fully relax Urinary urgency and frequency Background with fecal incontinence as well Prior evaluation for InterStim stage I but concerns regarding compliance Had been on Myrbetriq 50 Displaying signs of urinary hesitancy Reduce Myrbetriq to 25 mg daily Add 1 mg terazosin May have had too much MiraLax Make sure encourage fluids They would like diapers changed to large 12 month follow-up [facility] Medical History Urinary hesitancy Urinary urgency Impacted cerumen of both ears Vitamin D deficiency Fungal dermatitis Leg swelling Frequency of micturition Mental and behavioral problem Autism Leukopenia Hypothyroid Constipation Surgical History No pertinent past surgical history Family History Father No problems noted. Mother Drug addiction Brain mass Breast cancer Maternal Grandmother Breast cancer Maternal Uncle Colon cancer Other Mental health disorder Substance use disorder Social History Housing: Other ([facility]) Alcohol intake: never Patient Tobacco Use Status: Never used Tobacco e-Cigarette/Vaping Use: Never Used Current occupational status: disabled Cognitive needs: Yes Hearing needs: Yes Vision needs: No Review of Systems Const Denies chills and Denies fever(s) Card Reports no additional complaints and Denies syncope Resp Denies cough GI Denies abdominal pain and Denies heartburn Reports as per HPI and Denies change in libido Neuro Denies syncope Psych Denies change in libido Endo Denies change in libido Physical Exam Const General: cooperative, healthy appearing, comfortable and no acute distress Orientation/consciousness: patient oriented x3 HEENT Face and sinus: Yes normal facial exam Mouth: moist mucous membranes Neck Neck: Yes normal visual inspection, Yes full ROM and Yes trachea midline Chest Chest palpation & inspection: normal inspection of the chest Resp Effort & Inspection: normal respiratory effort, able to speak in complete sentences and no respiratory distress GI Inspection: Yes normal to inspection Back/Spine/Pelvis Cervical Spine: normal cervical lordosis Thoracic/Lumbar Spine: thoracic and lumbar spine normal to inspection Skin General skin exam: no rashes or lesions noted Neuro General: patient oriented x3, gait normal, tone normal and moves all extremities Extrem General: Yes normal to inspection and Yes capillary refill normal Assessment & Plan Assessment & Plan (1) Urinary incontinence: Code(s): R32 - Unspecified urinary incontinence Category: Medical Qualifiers: Urinary Incontinence type: unspecified incontinence Qualified Code(s): R32 - Unspecified urinary incontinence Plan 12 month follow-up Orders: Orders AMB Urinalysis Automated 05/30/24 Z13.9 - Encounter for screening, unspecified Medications: Refilled terazosin 1 mg PO BEDTIME 90 caps 3RF 90 days N32.81 - Overactive bladder, R39.11 - Hesitancy of micturition, R39.12 - Poor urinary stream mirabegron ER 25 mg PO DAILY 90 tabs 3RF 90 days R32 - Unspecified urinary incontinence Patient Instructions: Imaging studies, laboratory and physical exam results were discussed and reviewed in detail. No major barriers to patient understanding were identified. An opportunity to ask questions regarding the treatment plan was provided. All questions were answered. The patient expressed understanding and agreement with the above treatment plan. The patient is aware they should contact our office by phone for worsening of their current condition or the appearance of new urologic symptoms. Compliance is encouraged with any medications and followup testing that is ordered. It is a privilege to participate in the urologic care of your patient. If you have any questions or concerns regarding treatment for the above conditions, or other urologic issues, please do not hesitate to contact me. The office teleph one contact is [phone]. This note is constructed using voice recognition software. While every effort has been made to ensure accuracy recruiting assistant errors may have been included. Yours sincerely, Dr Leonel Cunningham MD, [facility] - Urology Providers of Expert, Compassionate Care for the Genitourinary System Coding Level of Care Code Est Pt Level 4 (24039) Diagnoses Urinary incontinence, unspecified type R32 Urinary Incontinence type: unspecified incontinence
== END 2024-05-30 16:03 | disposition home or self-care (01) ==
PROVIDERS: PCP Internal Medicine; Visit Provider Urology
DX: R32 Unspecified urinary incontinence (principal)
CPT/HCPCS: 99214

== ENCOUNTER → 2024-05-30 14:53 | Outpatient (BNVA) | payer MEDICARE, MEDICAID, SELFPAY | PROVIDERS: PCP Internal Medicine; Visit Provider Urology | DX: R32 Unspecified urinary incontinence (principal); R39.15 Urgency of urination; N32.81 Overactive bladder; R39.11 Hesitancy of micturition; R39.12 Poor urinary stream | CPT/HCPCS: 99212 ==

== ENCOUNTER 2024-09-18 15:52 | Outpatient (AMB) | payer MEDICARE, MEDICAID, SELFPAY ==
--- NOTE | 2024-09-18 15:54 | MHC.PC.OV ---
Vital Signs 09/18/24 15:57 Height 5 ft 1 in Weight 167 lb BMI 31.6 BP 110/60 Blood Pressure Location Lt brachial Position Sitting Pulse 126 H Pulse Source Pulse Oximeter Temp 97.1 F Temp Source Skin Pulse Oximetry (%) 97 Oxygen Delivery Method Room Air Intake Visit Reasons: self injuries behavior Intake Note: Patient is here to follow up on self injury behavior. Institutional Asset Manager Required: No Supervisor Of Guidance And Testing: Present Accompanied by: staff Allergies cephalexin [From KEFLEX] Allergy (Unknown, Verified 09/18/24 15:56) RASH nitrofurantoin [From MACROBID] Allergy (Unknown, Verified 09/18/24 15:56) RASH Tobacco use date assessed: 09/18/24 Dental Screening Dental Screen Date: 09/18/24 Did you have a dental visit in the last 12 months?: Yes Did you have a dental problem in the last 6 months where you did not have access to dental care?: No Was dental information given to patient?: Patient has dentist HPI self injuries behavior HPI Details problem of self injurious behavior, ? having KARIMI, , asking for alternative for depot hormone shot. still incontinent with urology ff up The patient is a 34-year-old female presenting with weight gain, headaches, and possible urinary frequency. The weight gain is a concern thought to be related to the prolonged use of Depo-Provera for contraception. The guardian seeks an alternative contraception method due to concerns about side effects. The patient also experiences headaches, leading to observable behaviors such as screaming, stomping, furrowed eyebrows, and possible head pain signaled by gesture towards the head. These behaviors might correlate with medication, as she recently started a new mood stabilizer. There has been an uptick in behavioral disturbances, previously controlled but now resurgent, which is concerning to the guardian. Additionally, the patient's guardian reports frequent urination, especially at night, and there is concern for possible UTI. The patient has a history of Autism Spectrum Disorder and prior ear infections. She is also on various medications, including mood stabilizers and MiraLax, the latter contributing to loose stools. Recent vomiting episodes following coughing spells are noted, potentially linked to the new medication regimen. [facility] Medical History (Updated 08/17/24 @ 17:38 by Christiano Cronin MD) Urinary hesitancy Urinary urgency Impacted cerumen of both ears Vitamin D deficiency Fungal dermatitis Leg swelling Frequency of micturition Mental and behavioral problem Autism Leukopenia Hypothyroid Constipation Surgical History No pertinent past surgical history Family History Father No problems noted. Mother Drug addiction Brain mass Breast cancer Maternal Grandmother Breast cancer Maternal Uncle Colon cancer Other Mental health disorder Substance use disorder Social History Housing: Other ([facility]) Alcohol intake: never Patient Tobacco Use Status: Never used Tobacco e-Cigarette/Vaping Use: Never Used Second Hand Smoke Exposure: No service: No Current occupational status: disabled Cognitive needs: Yes Hearing needs: Yes Vision needs: No Questionnaire PHQ-9 Over the last 2 weeks, how often have you been bothered by any of the following problems? 1. Little interest or pleasure in doing things: not at all 2. Feeling down, depressed, or hopeless: not at all 3. Trouble falling or staying asleep, or sleeping too much: not at all 4. Feeling tired or having little energy: not at all 5. Poor appetite or overeating: not at all 6. Feeling bad about yourself - or that you are a failure or have let yourself or your family down: not at all 7. Trouble concentrating on things, such as reading the newspaper or watching television: not at all 8. Moving or speaking so slowly that other people could have noticed. Or the opposite - being so fidgety or restless that you have been moving around a lot more than usual: not at all 9. Thoughts that you would be better off or of hurting yourself in some way: not at all Total score: 0 Depression Screening Interpretation: Negative Depression Screening Done: Yes Source: Developed by Drs. Isauro Amin, Ana Chun, Erickson Fried and colleagues, with an educational orlando from [employer]. Thrive Questionnaire Date Thrive assessed: 09/18/24 I am a: Patient What is your living situation today?: I have a steady place to live Within the past 12 months, did the food you bought not last and you didn't have the money to get more?: Never true Within the past 12 months, did you worry whether your food would run out before you got money to buy more?: Never true Do you have trouble paying for medicines?: No Do you have trouble getting transportation to medical appointments?: No Do you have trouble paying your heating and electricity bill?: No Do you have trouble taking care of your child, family member or friend?: No Do you have trouble with day-to-day activities such as bathing, preparing meals, shopping, managing finances, etc.?: No Are you currently unemployed and looking for a job?: No Are you interested in more education?: No Please select the resources that you would like help with: None Currently or been in a relationship where the following occur: No concerns reported THRIVE Score: 0 AUDIT C Alcohol Use Questionnaire (AUDIT-C) 1. How often do you have a drink containing alcohol?: Never Total Score: 0 COLBY-7 AMB Questionnaire COLBY-7 Date COLBY - 7 assessed: 09/18/24 Feeling nervous, anxious, or on edge: 0 = Not at all Not being able to stop or control worryin = Not at all Worrying too much about different things: 0 = Not at all Trouble relaxin = Not at all Being so restless that it is hard to sit still: 0 = Not at all Becoming easily annoyed or irritable: 0 = Not at all Feeling afraid as if something awful might happen: 0 = Not at all Total COLBY-7 score (0-4 normal; 5-9 mild; 10-14 moderate; 15-21 severe): 0 Source: Developed by Drs. Isauro Amin, Ana Chun, Erickson Fried and colleagues, with an educational orlando from [employer]. Physical exam (Primary Care) Vital Signs: Last Vital Signs Temp 97.1 F 09/18/24 15:57 Pulse 126 H 09/18/24 15:57 BP 110/60 09/18/24 15:57 Pulse Ox 97 09/18/24 15:57 Oxygen Delivery Method Room Air 09/18/24 15:57 BMI result Body Mass Index 31.6 Tobacco/Smoking Status: Tobacco use Status Tobacco use date assessed 09/18/24 09/18/24 16:07 Patient Tobacco Use Status Never used Tobacco 09/18/24 16:07 Tobacco use type 04/09/21 17:14 e-Cigarette/Vaping Use Never Used 09/18/24 16:07 PHQ-9: PHQ-9 Score PHQ-9: Total score 0 09/18/24 16:13 Depression Screening Interpretation: Negative Thrive Assessment: Date of Thrive Assessment Date Thrive assessed 09/18/24 09/18/24 16:07 Currently or been in a relationship where the following occur: No concerns reported Const General: alert; No acute distress Eyes Conjunctivae: conjunctivae normal Resp Auscultation: clear to auscultation bilaterally Cardio Rate: regular rate Rhythm: regular rhythm GI Inspection: Yes normal to inspection Extrem General: Yes normal to inspection and No edema Coding Level of Care Code Est Pt Level 4 (56368) Diagnoses Class 1 obesity due to excess calories without serious comorbidity with body mass index (BMI) of 30.0 to 30.9 in adult E66.09; Z68.30 Body mass index: BMI 30.0-30.9 Obesity classification: adult class 1 (BMI 30 - 34.9) Obesity type: due to excess calories Serious obesity comorbidity presence: without serious comorbidity Urinary incontinence, unspecified type R32 Urinary Incontinence type: unspecified incontinence Autism F84.0 Acquired hypothyroidism E03.9 Hypothyroidism type: acquired Assessment & Plan Assessment & Plan (1) Obesity: Code(s): E66.9 - Obesity, unspecified Category: Medical Qualifiers: Body mass index: BMI 30.0-30.9 Obesity classification: adult class 1 (BMI 30 - 34.9) Obesity type: due to excess calories Serious obesity comorbidity presence: without serious comorbidity Qualified Code(s): E66.09 - Other obesity due to excess calories; Z68.30 - Body mass index [BMI] 30.0-30.9, adult (2) Urinary incontinence: Code(s): R32 - Unspecified urinary incontinence Category: Medical Qualifiers: Urinary Incontinence type: unspecified incontinence Qualified Code(s): R32 - Unspecified urinary incontinence (3) Autism: Code(s): F84.0 - Autistic disorder Category: Medical (4) Hypothyroid: Code(s): E03.9 - Hypothyroidism, unspecified Category: Medical Qualifiers: Hypothyroidism type: acquired Qualified Code(s): E03.9 - Hypothyroidism, unspecified Plan - Evaluate options for alternative contraception to replace Depo-Provera due to concerns about weight gain and potential long-term effects. - Advised workup for the headaches and associated behavioral symptoms for precise etiology and appropriate management. - Discuss with a sql ssrs developer regarding any potential hormonal influences contributing to the headache and mood disturbances. - Initiate a urinary analysis to assess for urinary tract infection given the reported urinary frequency. - Suggest diet and behavioral interventions to address obesity in coordination with nutritional consultation. - Adjust MiraLax dosage to mitigate gastrointestinal symptoms based on the patient's current bowel habits and symptoms. - - Ensure continuous monitoring and follow up for Autism Spectrum Disorder management. - Investigate further into vomiting episodes and their link to coughing or medication side effects. - Confirm with prior ENT history for ear infections and ensure ongoing preventive measures are taken. Orders: Orders Thyroid Stimulating Hormone Today E03.9 - Hypothyroidism, unspecified Comprehensive Met. Panel Today E03.9 - Hypothyroidism, unspecified Vitamin B12 and Folate Today E03.9 - Hypothyroidism, unspecified UA CC w/rflx Micro + Cult Today R30.0 - Dysuria, R32 - Unspecified urinary incontinence Free T4 (Free Thyroxine) Today E03.9 - Hypothyroidism, unspecified Complete Blood Count Auto Diff Today E03.9 - Hypothyroidism, unspecified Erythrocyte Sedimentation Rate Today E03.9 - Hypothyroidism, unspecified
[2024-09-18 15:57] VITALS: BP 110/60; PULSE 126; TEMP 36.2; O2SAT 97; BMI 31.6
== END 2024-09-18 16:33 | disposition home or self-care (01) ==
PROVIDERS: PCP Internal Medicine; Visit Provider Internal Medicine
DX: E66.09 Other obesity due to excess calories (principal); Z68.30 Body mass index [BMI] 30.0-30.9, adult; R32 Unspecified urinary incontinence; F84.0 Autistic disorder; E03.9 Hypothyroidism, unspecified

== ENCOUNTER → 2024-09-18 15:52 | Outpatient (BNVA) | payer MEDICARE, MEDICAID, SELFPAY | PROVIDERS: PCP Internal Medicine; Visit Provider Internal Medicine | DX: E66.09 Other obesity due to excess calories (principal); Z68.30 Body mass index [BMI] 30.0-30.9, adult; R32 Unspecified urinary incontinence; F84.0 Autistic disorder; E03.9 Hypothyroidism, unspecified; Z71.3 Dietary counseling and surveillance | CPT/HCPCS: 99212 ==

== ENCOUNTER 2024-11-07 10:04 | Outpatient (AMB) | payer MEDICARE, MEDICAID, SELFPAY ==
--- NOTE | 2024-11-07 10:08 | MHC.PC.OV ---
Vital Signs 11/07/24 10:10 Height 5 ft 1 in Weight 169 lb 15.622 oz BMI 32.1 BP 130/66 Blood Pressure Location Rt brachial Position Sitting Temp 97.1 F Temp Source Temporal Artery Scan Intake Visit Reasons: [facility] 10/30 Influenza A Intake Note: Patient is here to follow-up after a visit the emergency department at [facility] on 10/30/24 Us Administrative Law Judge Required: No Pathology Secretary: Present Accompanied by: staffs Allergies cephalexin [From KEFLEX] Allergy (Unknown, Verified 11/07/24 10:18) RASH nitrofurantoin [From MACROBID] Allergy (Unknown, Verified 11/07/24 10:18) RASH Medication List - Last Reconciled 11/07/24 by Monet Case PA-C acetaminophen ER (8 Hour Pain Reliever) 650 mg PO Q8H PRN amitriptyline 25 mg PO BEDTIME 90 days bacitracin zinc (Antibiotic (bacitracin zinc)) 1 appl topically use topically every 12 hours as needed for ear, lacerations, cuts, scrapes; benztropine 1 mg PO BID cholecalciferol (vitamin D3) 50 mcg PO DAILY 90 days compr.stocking,thigh,short,med As directed dextromethorphan polistirex ER 10 mL PO Q12H PRN diaper,brief,adult,disposable As directed divalproex ER mg PO DAILY emollient combination no.119 (Eucerin Advanced Repair topical cream) Apply to skin twice a day topically; fluocinolone acetonide oil 0.01% (DermOtic Oil) 5 drps otic (ears) BID guanfacine ER 3 mg PO DAILY lanolin aaixoos-wl-h.pet-ceres (Eucerin topical cream) 1 appl topical DAILY PRN levothyroxine 25 mcg PO QAM lorazepam (Ativan) 1 mg PO .QD PRN medroxyprogesterone (Depo-Provera) 150 mg IM [id number] mirabegron ER 25 mg PO DAILY 90 days oxcarbazepine 300 mg PO TID polyethylene glycol 3350 (Miralax) 17 grams PO DAILY 90 days [pull ups medium As directed] risperidone mg PO BID terazosin 1 mg PO BEDTIME 90 days trazodone 100 mg PO BEDTIME triamcinolone acetonide 0.5% 1 appl topical DAILY PRN Tobacco use date assessed: 11/07/24 Dental Screening Dental Screen Date: 09/18/24 [facility] 10/30 Influenza A HPI Details 34-year-old female with past medical history of autism and hypothyroidism last seen 08/[address] Cronin coming in for hospital discharge follow up. In review of the notes, patient was seen in [facility] 10/30/2024 for influenza advised conservative measures and discharged home.? Presenting with follow-up concerns after suffering from influenza. Initial symptoms included fever and body aches, both of which have since resolved, alongside an improvement in appetite. Remaining symptoms include mild nasal congestion and a slight, persistent cough. [facility] Medical History Urinary hesitancy Urinary urgency Impacted cerumen of both ears Vitamin D deficiency Fungal dermatitis Leg swelling Frequency of micturition Mental and behavioral problem Autism Leukopenia Hypothyroid Constipation Surgical History No pertinent past surgical history Family History Father No problems noted. Mother Drug addiction Brain mass Breast cancer Maternal Grandmother Breast cancer Maternal Uncle Colon cancer Other Mental health disorder Substance use disorder Social History Housing: Other ([facility]) Alcohol intake: never Patient Tobacco Use Status: Never used Tobacco e-Cigarette/Vaping Use: Never Used Second Hand Smoke Exposure: No service: No Current occupational status: disabled Cognitive needs: Yes Hearing needs: Yes Vision needs: No Questionnaire Thrive Questionnaire Date Thrive assessed: 09/18/24 COLBY-7 AMB Questionnaire COLBY-7 Date COLBY - 7 assessed: 09/18/24 Source: Developed by Drs. Isauro Amin, Ana Chun, Erickson Fried and colleagues, with an educational orlando from [employer] in [place]. Review of Systems Const Details: obtained from staff Denies body aches, Denies chills, Denies fever(s) and Denies poor appetite Eyes Reports no additional complaints ENT Reports nasal congestion Card Denies chest pain and Denies dyspnea Resp Reports cough, Denies hemoptysis, Denies excessive phlegm production and Denies dyspnea GI Denies nausea and Denies vomiting Reports no additional complaints Musc Reports no additional complaints and Denies abnormal gait Skin/Breast Reports system reviewed and no additional complaints, except as documented Neuro Denies abnormal gait Psych Reports no additional complaints Physical exam (Primary Care) Vital Signs: Last Vital Signs Temp 97.1 F 11/07/24 10:10 BP 130/66 11/07/24 10:10 BMI result Body Mass Index 32.1 Tobacco/Smoking Status: Tobacco use Status Tobacco use date assessed 11/07/24 11/07/24 10:16 Patient Tobacco Use Status Never used Tobacco 11/07/24 10:16 Tobacco use type 04/09/21 17:14 e-Cigarette/Vaping Use Never Used 11/07/24 10:16 Thrive Assessment: Date of Thrive Assessment Date Thrive assessed 09/18/24 11/07/24 10:16 Const General: cooperative, healthy appearing, comfortable and no acute distress Orientation/consciousness: patient oriented x3 HENMT Head: Yes normocephalic Ears: hearing grossly normal bilaterally General nose exam: Normal external nose present Eyes General: appearance normal, both eyes and all related structures Conjunctivae: conjunctivae normal Neck Neck: Yes full ROM and Yes no lymphadenopathy Resp Effort & Inspection: normal respiratory effort Auscultation: clear to auscultation bilaterally, no crackles, no rales, no rhonchi and no wheezes Cardio Rate: regular rate Rhythm: regular rhythm Skin General skin exam: no rashes or lesions noted Neuro General: patient oriented x3 Gait exam (Neuro): Normal gait present Extrem General: Yes normal to inspection, Yes full ROM and No edema Psych Affect: normal affect Attitude: cooperative Insight: Good insight present (Psych) Judgement: Good judgement present (Psych) Coding Level of Care Code Est Pt Level 3 (38900) Diagnoses Class 1 obesity due to excess calories without serious comorbidity with body mass index (BMI) of 30.0 to 30.9 in adult E66.09; Z68.30 Body mass index: BMI 30.0-30.9 Obesity classification: adult class 1 (BMI 30 - 34.9) Obesity type: due to excess calories Serious obesity comorbidity presence: without serious comorbidity Autism F84.0 Upper respiratory infection J06.9 Assessment & Plan Assessment & Plan (1) Obesity: Code(s): E66.9 - Obesity, unspecified Category: Medical Qualifiers: Body mass index: BMI 30.0-30.9 Obesity classification: adult class 1 (BMI 30 - 34.9) Obesity type: due to excess calories Serious obesity comorbidity presence: without serious comorbidity Qualified Code(s): E66.09 - Other obesity due to excess calories; Z68.30 - Body mass index [BMI] 30.0-30.9, adult Plan: Healthy diet and regular exercise is encouraged. (2) Autism: Code(s): F84.0 - Autistic disorder Category: Medical Plan: Continue with counseling and psychiatric management (3) Upper respiratory infection: Code(s): J06.9 - Acute upper respiratory infection, unspecified Category: Medical Plan: The patient is recovering well from her recent influenza infection. The remaining symptoms of nasal congestion and a slight cough are expected to resolve without intervention, though Mucinex can be considered if symptoms worsen. The patient should monitor her symptoms and contact us if the cough does not improve or if new symptoms arise. Plan Thank you for allowing me to participate in the care of this patient. I personally spent 15 minutes reviewing, examining and charting on this patient. Patient was informed and verbally consented to the use of an ambient scribe for clinic note documentation during this visit.
[2024-11-07 10:10] VITALS: BP 130/66; TEMP 36.2; BMI 32.1
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
--- OUTSIDE RECORDS SUMMARY | 2024-11-07 11:49 | XMS_ITS | Data Portability ---
Author Organization [place] [facility], Allergy Address [address] [address] Assessment Encounter Date Assessment Date Assessment LastModified by Organization Details LastModified Time 05/11/2024 05/11/2024 33 year old female presents for cerumen removal. Cerumen impaction removed bilaterally. Bilateral TMs are intact. Follow up in 3 months for routine debridement. sam Not available 05/11/2024 11:57:44 08/24/2024 08/24/2024 34 year old female presents for cerumen removal. Cerumen impaction removed bilaterally. Bilateral TMs are intact and thickened. Exam is consistent with myringitis bilaterally. Recommended Ciprodex to both ears BID x 14 days and dry ear precautions x 2 weeks. Follow up in 2-3 weeks for reevaluation, or sooner with worsening symptoms. [email or web address] Not available 08/24/2024 11:34:53 Plan of Treatment Reminders Order Date Submit Date Provider Last Modified By Organization Details Last Modified Time Details Appointments Establish ed 15 2024 09:15A M CONNOR NARAYAN PA-C Not available Not available Not available Lab None recorded. Referral None recorded. Procedures None recorded. Surgeries None recorded. Imaging None recorded. Medication Orders Ciprodex 0.3 %-0.1 % ear drops,bia pension 2023 024 [facility], [address], [place], [address], 08/24/2024 11:34:05 Patient TargetsNo targets recorded. Patient InstructionsNo instructions recorded. Reason for Referral None Reported. Results Created Date Observation Date Name Description Value Unit Range Abnormal Flag Note LastModifiedBy Organization Detail LastModifiedTime 04/18/20 24 09/03/2022 imagi ng/di agnos tic resul t No observ ation record ed. [email or web address] Not Available 23:25:08 04/18/20 24 05/14/2022 imagi ng/di agnos tic resul t No observ ation record ed. [email or web address] Not Available 23:25:41 04/18/20 24 05/14/2022 audio gram No observ ation record ed. [email or web address] Not Available 23:27:02 Result Notes None recorded. Problems Name Problem SNOMED Code Status Onset Date Resolution Date Notes Provider Name and Address Organization Details Recorded Time Diffuse otitis externa 57702033 Active 2019 Diffuse otitis externa, right ear; Note: Date Diagnosed : 0 3:44 PM (H60.311) Not Available [facility] 4 02:18:24 Impacted cerumen of bilateral ears 27114043456 14197 Active 2018 Impacted cerumen, bilateral ; Note: Date Diagnosed : 9 2:01 PM (H61.23) Not Available [facility] 4 02:18:17 Delayed milestone 588524744 Active 2021 Delayed milestone in childhood ; Note: Date Diagnosed : 05/14/2022 12:06 PM (R62.0) Not Available [facility] 4 02:18:51 Abnormal auditory perceptio n 10745612 Active 2021 Other abnormal auditory perceptio ns, bilateral ; Note: Date Diagnosed : 05/14/2022 12:06 PM (H93.293) Not Available [facility] 4 02:18:09 Impacted cerumen in left ear 44940228579 76429 Active 2018 Impacted cerumen, left ear; Note: Date Diagnosed : 02/15/2019 11:37 AM (H61.22) Not Available [facility] 4 02:18:26 Foreign body in right ear 44584882623 697444 Active 2021 Foreign body in right ear, initial encounter ; Note: Date Diagnosed : 05/14/2022 1:15 PM (T16.1XXA ) Not Available [facility] 4 02:18:47 Acute eczematoi d otitis externa 21529053 Active 2021 Acute eczematoi d otitis externa, bilateral ; Note: Date Diagnosed : 05/14/2022 1:16 PM (H60.543) Not Available [facility] 4 02:18:59 Acute myringiti s 947071 Active 2023 CONNOR NARAYAN PA-C [address],[place] [facility], [place], [address] , [facility] 4 11:32:58 Acute myringiti s 125552 Active 2023 CONNOR NARAYAN PA-C [address],[place] [address], [place], [address] , [facility] [place] 4 11:33:03 Problem Notes None recorded. Procedures Surgical History Date Name Laterality Status Provider Name and Address Organization Details Recorded Time 4 Cerumen removal without microscope bilat completed CONNOR NARAYAN PA-C [address] [facility] [place] [address], [place], [address], [facility] 08/24/2024 11:03:07 4 Cerumen removal without microscope bilat completed CONNOR NARAYAN PA-C [address] [facility] [place] [address], [place], [address], [facility] 05/11/2024 11:38:47 Imaging Results Imaging Date Name Status LastModified by Organiz [facility] Details LastModified Time 09/03/2022 imaging/diagno stic result completed Information not available 04/18/2024 23:25:08 05/14/2022 imaging/diagno stic result completed Information not available 04/18/2024 23:25:41 05/14/2022 audiogram completed Information not available 04/18/2024 23:27:02 Procedure Notes None recorded. Medical Equipment None Reported. Allergies Allergen ID Allergen Name Allergen Category Reaction Reaction Severity Criticality Documentation Date Start Date Code Code System Note Provider Name and Address Organization Details Recorded Time [id number] Keflex medicatio n Not available Not available Not available 08/24/2024 55375 7 RxNorm CONNOR PUENTESTRACY ALLEN [address] [facility],[place] [address], [place], [phone], [facility] - [facility] 4 11:19:31 344088 Macrobid medicatio n Not available Not available Not available 08/24/2024 42238 1 RxNorm CONNOR NARAYANTRACY ALLEN [address] [facility],[place] [address], [place], [phone], [facility] 4 11:19:38 Medications Name Sig Start Date Stop Date Status Note LastModified by Organization Details LastModified Time Prescripti on - Prior Authorizat ion Request active Script Copy/Prior Auth^Scrip t Copy/Prior Auth_ Not Available Not Available Not Available oxcarbazep ine 150 mg tablet active Not Available Not Available Not Available Colace 100 mg capsule 2018 active Medication ID: [id number] Bra nd Name: Colace Sen d Method: E-Prescrib ed Subs Allowed: subs OK Medicat ionGeneric Name: Colace Not Available Not Available Not Available risperidon e 4 mg tablet active Not Available Not Available Not Available Claritin 10 mg tablet 1 tablet by mouth 2018 active Medication ID: [id number] Dur ation Value: 30 Brand Name: Claritin S end Method: E-Prescrib ed Subs Allowed: subs OK Special Instructio n: take 1 tablet by mouth once daily Medi cationGene ricName: Claritin Not Available Not Available Not Available bacitracin 500 unit/gram topical ointment active Not Available Not Available Not Available Eucerin topical cream 2018 active Medication ID: [id number] Bra nd Name: Eucerin Se nd Method: E-Prescrib ed Subs Allowed: subs OK Medicat ionGeneric Name: Eucerin Not Available Not Available Not Available oxcarbazep ine 300 mg tablet active Not Available Not Available Not Available terazosin 1 mg capsule active Not Available Not Available Not Available bacitracin zinc 500 unit/gram topical ointment 2018 active Medication ID: [id number] Dexter nd Name: bacitracin zinc Send Method: E-Prescrib ed Subs Allowed: subs OK Medicat ionGeneric Name: bacitracin zinc Not Available Not Available Not Available levothyrox ine 25 mcg tablet active Not Available Not Available Not Available amitriptyl ine 25 mg tablet active Not Available Not Available Not Available lorazepam 0.5 mg tablet active Not Available Not Available Not Available trazodone 100 mg tablet active Not Available Not Available Not Available lorazepam 2 mg tablet active Not Available Not Available Not Available diazepam 2 mg tablet 2018 active Medication ID: [id number] Dur ation Value: 28 Brand Name: diazepam S end Method: E-Prescrib ed Subs Allowed: subs OK Medicat ionGeneric Name: diazepam Not Available Not Available Not Available benztropin e 1 mg tablet active Not Available Not Available Not Available lorazepam 1 mg tablet active Not Available Not Available Not Available polyethyle ne glycol 3350 17 gram/dose oral powder active Not Available Not Available Not Available guanfacine 2 mg tablet 2018 active Medication ID: [id number] Dexter nd Name: guanfacine Send Method: E-Prescrib ed Subs Allowed: subs OK Medicat ionGeneric Name: guanfacine Not Available Not Available Not Available medroxypro gesterone 150 mg/mL intramuscu lar suspension active Not Available Not Available N ot Available Topamax 100 mg tablet 2018 active Medication ID: [id number] Dexter nd Name: Topamax Se nd Method: E-Prescrib ed Subs Allowed: subs OK Medicat ionGeneric Name: Topamax Not Available Not Available Not Available Vitamin C 500 mg capsule,ex tended release 2018 active Medication ID: [id number] Dexter nd Name: Vitamin C Send Method: E-Prescrib ed Subs Allowed: subs OK Medicat ionGeneric Name: Vitamin C Not Available Not Available Not Available TobraDex 0.3 %-0.1 % eye drops,susp ension 2019 active Medication ID: [id number] Pre scribed By Name: Hero Mauro PA-C Brand Name: TobraDex S end Method: E-Prescrib ed Subs Allowed: subs OK Special Instructio n: Instill 3 drops in the affect ear BID for 14 days Medic ationGener icName: TobraDex Not Available Not Available Not Available divalproex ER 250 mg tablet,ext ended release 24 hr active Not Available Not Available Not Available risperidon e 2 mg disintegra ting tablet 2018 active Medication ID: [id number] Dexter nd Name: risperidon e Send Method: E-Prescrib ed Subs Allowed: subs OK Medicat ionGeneric Name: risperidon e Not Available Not Available Not Available ciprofloxa judit 0.3 %-dexameth asone 0.1 % ear drops,susp ension INSTILL 4 DROPS INTO BOTH EARS BID X 14 DAYS active Not Available Not Available No t Available 8 Hour Pain Reliever 650 mg tablet,ext ended release active Not Available Not Available Not Available Artificial Tears 2018 active Medication ID: [id number] Dexter nd Name: artificial tears Send Method: E-Prescrib ed Subs Allowed: subs OK Medicat ionGeneric Name: artificial tears Not Available Not Available Not Available Depo-Prove ra 2018 active Medication ID: [id number] Dexter nd Name: depo-prove ra Send Method: E-Prescrib ed Subs Allowed: subs OK Medicat ionGeneric Name: depo-prove ra Not Available Not Available Not Available Enulose 2018 active Medication ID: [id number] Dexter nd Name: enulose Se nd Method: E-Prescrib ed Subs Allowed: subs OK Medicat ionGeneric Name: enulose Not Available Not Available Not Available risperidon e 3 mg disintegra ting tablet 2018 active Medication ID: [id number] Dexter nd Name: risperidon e Send Method: E-Prescrib ed Subs Allowed: subs OK Medicat ionGeneric Name: risperidon e Not Available Not Available Not Available fluocinolo ne acetonide oil 0.01 % ear drops Instill 2 drops into both ears twice a week as needed active Not Available Not Available No t Available cholecalci ferol (vitamin D3) 50 mcg (2,000 unit) capsule active Not Available Not Available Not Available Eucerin Original lotion 2018 active Medication ID: [id number] Dexter nd Name: Eucerin Original S end Method: E-Prescrib ed Subs Allowed: subs OK Medicat ionGeneric Name: Eucerin Original Not Available Not Available Not Available guanfacine ER 2 mg tablet,ext ended release 24 hr 2018 active Medication ID: [id number] Dur ation Value: 28 Brand Name: guanfacine Send Method: E-Prescrib ed Subs Allowed: subs OK Medicat ionGeneric Name: guanfacine Not Available Not Available Not Available guanfacine ER 3 mg tablet,ext ended release 24 hr active Not Available Not Available Not Available Myrbetriq 25 mg tablet,ext ended release active Not Available Not Available Not Available Myrbetriq 50 mg tablet,ext ended release 2018 active Medication ID: [id number] Bra nd Name: Myrbetriq Send Method: E-Prescrib ed Subs Allowed: subs OK Medicat ionGeneric Name: Myrbetriq Not Available Not Available Not Available Eucerin Advanced Repair Hand topical cream active Not Available Not Available Not Available Vitals None Recorded Social History None recorded. Functional Status None recorded. Mental Status None recorded. Family History Nothing Reported. Medical History No medical history recorded. Gynecological HistoryNo gynecological history recorded. Obstetrics History GPAL:G 0 P 0 0 0 0 Past Encounters Encounter ID Performer Location Encounter Start Date Encounter Closed Date Diagnosis/Indication Diagnosis SNOMED-CT Code Diagnosis ICD10 Code Diagnosis Note [id number] XIAO RICH MD [facility] [address] [address] 05/11/2024 11:30:34 05/11/2024 11:52:41 Impacted cerumen of bilateral ears 4695020630 285573 H61.23 [id number] XIAO RICH MD [facility] [address] [address] 08/24/2024 10:57:54 08/24/2024 11:26:55 Impacted cerumen of bilateral ears 0962042458 088852 H61.23 Acute myringitis 040535 H73.003 Health Concerns Section Related Observation LastModified by Organization Detai ls LastModified Time None Recorded Concern Status LastModified by Organization Details LastModified Time None Recorded Advance Directives Directive None Recorded Payers Encounter Date Sequence Insurance Name Policy Number Policy Moy Covered Member ID Moy Member ID Guarantor Name 05/11/2024 1 [place] [employer] Tres Davis [id number] Tres Davis 05/11/2024 2 [place] [facility] Tres Davis [id number] Tres Davis 08/24/2024 1 [place] [employer] Tres Davis [id number] [place]res [place] 08/24/2024 2 [place] [facility] Tres Davis [id number] Naldoidseveriano [place] Notes Date Note Type Note Provider Name and Address Organization Details Recorded Time 05/11/2024 text/html 33-year-old jameson bolton presents for cerumen removal. Uses DermOtic for eczema of the ears. No concerns today. Accompanied by long term staff member. XIAO RICH MD [address] [place] [address], [phone], [place] - [facility] 05/12/2024 09:00:43 08/24/2024 text/html 34-year-old jameson bolton presents for cerumen removal. Uses DermOtic for eczema of the ears. No concerns today. Accompanied by long term staff member. XIAO RICH MD [address] [place] [address], [phone], [place] [facility] 08/24/2024 16:30:02 OBGyn Episode No OBEpisode recorded.
== END 2024-11-07 10:29 | disposition home or self-care (01) ==
LOC: HO.HMCH 10:05
PROVIDERS: PCP Internal Medicine
DX: E66.09 Other obesity due to excess calories (principal); Z68.30 Body mass index [BMI] 30.0-30.9, adult; F84.0 Autistic disorder; J06.9 Acute upper respiratory infection, unspecified

== ENCOUNTER → 2024-11-07 10:04 | Outpatient (BNVA) | payer MEDICARE, MEDICAID, SELFPAY | PROVIDERS: PCP Internal Medicine | DX: E66.09 Other obesity due to excess calories (principal); Z68.30 Body mass index [BMI] 30.0-30.9, adult; F84.0 Autistic disorder; J06.9 Acute upper respiratory infection, unspecified; Z71.3 Dietary counseling and surveillance | CPT/HCPCS: 99212 ==

== ENCOUNTER 2025-04-03 10:49 | Outpatient (REF) | payer MEDICARE, MEDICAID, SELFPAY ==
[2025-04-03 11:06] LABS: MANUAL DIFF FLAG NO
--- OUTSIDE RECORDS SUMMARY | 2025-04-03 11:34 | XMS_ITS | Clinical Summary ---
Author Organization [facility] [address] [place] [address] [place] [phone] Phone Care Team Providers Care Forestry Worker Name Role Phone Christiano Cronin MD Primary Care Provider [phone] Allergies Active Allergy Reactions Criticality Noted Date [...] 100 mg by mouth at bedtime. Active Hospital, Clinic, or Other Facility Administered Medication Ordered Dose Route Frequency Start Date End Date Status medroxyPROGESTERone (DEPO-PROVERA) injection 150 mgIndications:Surveillance for Depo-Provera contraception 150 mg IM Once 03/22/2025 03/22/2025 Ended Active Problems Problem Noted Date Diagnosed Date Attention deficit hyperactivity disorder (ADHD) 06/30/2024 Dysmenorrhea 06/30/2024 Urinary frequency 05/13/2021 Overview (06/30/2024): Last Assessment & Plan: I recommended we send a culture as history is not clear and we can treat prn. Development delay 01/31/2019 Hypothyroid 01/31/2019 Encounters Date Type Department Care Team Description 03/22/2025 11:00 AM EDT Clinical Support Obstetrics and Gynecology [address] [phone] Surveillance for Depo-Provera contraception (Primary Dx) 02/22/2025 10:00 AM EDT Office Visit Orthopedic Surgery - [address] [address] Kemar Porras, DPM Dermatophytosis of nail (Primary Dx); Acquired hammer toe of right foot; Hammer toe of left foot; Corns and callosities from Last 3 Months Immunizations Name Administration [...] Date Smoking Tobacco: Never Smokeless Tobacco: Never Tobacco Cessation:Counseling Given: Not Answered Alcohol Use Standard Drinks/Week Comments No 0 (1 standard drink = 0.6 oz pur e alcohol) Comments No Sex and Gender Information Value Date Recorded Sex Assigned at Not on file Legal Sex Female 7:40 PM EST Gender Identity Not on file Sexual Orientation Not on file Obstetrics History Last Filed Vital Signs Vital Sign Reading Time Taken Comments Blood Pressure 134/80 12/26/2024 10:11 AM EDT Pulse 77 07/27/2023 1:38 PM EST Temperature - - Respiratory Rate - - Oxygen Saturation - - Inhaled Oxygen Concentration - - Weight 73 kg (161 lb) 11/22/2024 10:13 AM EDT Height 157.5 cm (5' 2 ) 11/22/2024 10:13 AM EDT Body Mass Index 29.45 11/22/2024 10:13 AM EDT Plan of Treatment Upcoming Encounters Date Type Department Care Team (Late st Contact Info) Description 06/14/2025 11:00 AM EDT Clinical Support Obstetrics and Gynecology - [address] [address] Health Maintenance Due Date Last Done Comments Hepatitis B Vaccines (1 of 3 - 19+ 3-dose series) 2011 Cervical Cancer Screening: Pap Smear 2013 HIV Screening 08/08/2022 Hepatitis C Screening 08/08/2022 Medicare Annual Wellness Visit 08/08/2022 Social Influencers of Health Screening 08/08/2022 COVID-19 Vaccine ( season) 2024 06/05/2021, 09/24/2020 Depression Screening 08/30/2024 Influenza Vaccine (#1) 2025 3, 10/07/2022, 06/05/2021, Additional history exists DTaP,Tdap,and [...] age to complete this topic Meningococcal B Vaccine Aged Out No l onger eligible based on patient's age to complete this topic Pneumococcal Vaccine: Pediatrics (0 to 5 Years) and At-Risk Patients (6 to 49 Years) Aged Out No longer eligible based on patient's age to complete this topic RSV Immunization Patients Under 20 months Aged Out No longer eligible based on patient's age to complete this topic Varicella Vaccines Aged Out No longer eligible based on patient's age to complete this topic Insurance MEDICARE MEDICAID - [place] Care Teams Forestry Worker Relationship Specialty Start Date End Date Christiano Cronin MD [address] [place] [address] [address] [facility] [place] [address] PCP - General Internal Medicine 09/17/21
--- OUTSIDE RECORDS SUMMARY | 2025-04-03 11:34 | XMS_ITS | Encounter Summary ---
Author Organization [facility] Address [address] [place] [address] Phone Care Team Providers Care Bridal Service Sales And Management Name Role Phone Christiano Cronin MD Primary Care Provider [phone] Reason for Referral * Consultation - Canceled Specialty Diagnoses / Procedures Referred By Contbea cotto Referred To Contact Pediatrics System, Provider Not In, PhD [id number] [place] [phone] Phone: tel: Referral ID Status Reason Start Date Expiration Date V isits Requested Visits Authorized [id number] Canceled 09/14/2017 09/14/2018 1 1 Encounter Details Date Type Department Care Team (Late st Contact Info) Description 09/14/2017 Transcribe Orders [facility] [address] [place] [phone] Christiano Cronin MD [address] [place] [address] [address] [place] [phone] Social History Tobacco Use Types Packs/Day Years Used Date Smoking Tobacco: Never Assessed Comments Unknown Sex and Gender Information Value Date Recorded Sex Assigned at Not on file Legal Sex Female 11:01 AM EST Gender Identity Not on file Sexual Orientation Not on file documented as of this encounter Plan of Treatment Scheduled Referrals Name Type Priority Associated Diagnoses Order Schedule Ambulatory referral to [facility] Outpatient Referral Routine Ordered: 09/14/2017 documented as of this encounter Visit Diagnoses Not on filedocumented in this encounter Care Teams Bridal Service Sales And Management Relationship Specialty Start Date End Date Christiano Cronin MD [address] [place] [address] PCP - General Internal Medicine 09/14/17 documented as of this encounter Additional Source Comments The information contained in this document represents components of the legal health record. It is not the complete legal health record.[facility]
[2025-04-03 11:38] LABS: Hematocrit 43.2 % (37.0-47.0); Hemoglobin 14.1 g/dl (12.0-16.0); Imm Gran Abs Auto 0.00 X10*3/uL (0.00-0.03); Imm Gran Pct Auto 0.0 % (0.0-0.4); Lymphocytes Absolute Auto 2.7 X10*3/uL (1.2-4.9); Mean Corpuscular HGB Conc 32.6 g/dl (31.0-35.0); Mean Corpuscular Hemoglobin 29.4 pg (27.0-33.0); Mean Corpuscular Volume 90.0 fL (80.0-98.0); NRBC Abs Auto 0.000 X10*3/uL (0.0-0.012); NRBC Pct Auto 0.0 /100WBC (0.0-0.2); Platelet Count 280 X10*3/uL (160-400); Red Blood Count 4.80 X10*6/uL (4.20-5.50); White Blood Count 5.7 X10*3/uL (4.8-10.8)
[2025-04-03 11:56] LABS: Appearance Urine Cloudy; Glucose Urine UA Negative (Negative); PH 7.5 (5.0-9.0); Specific Gravity - Urine 1.020 (1.005-1.025); UMIC TRIGGER UACC YES
[2025-04-03 12:24] LABS: Other Crystals Urine Present; UACC Culture Trigger YES
[2025-04-03 12:30] LABS: Alanine Aminotransferase 17 U/L (0-31); Albumin Level 4.4 g/dL (3.5-5.0); Alkaline Phosphatase 56 U/L (39-117); Anion Gap 13 (12-20); Aspartate Amino Transferase 34 U/L (5-31); Blood Urea Nitrogen 7 mg/dL (9-16); Calcium 9.6 mg/dL (8.4-10.2); Carbon Dioxide 26 mmol/L (22-29); Chloride 107 mmol/L (96-108); Estimated Glomerular Filt Rate > 60; Free T4 (Free Thyroxine) 1.21 ng/dL (0.71-1.85); Potassium 3.8 mmol/L (3.3-5.1); Sodium 142 mmol/L (135-145); Thyroid Stimulating Hormone 3.27 uIU/mL (0.32-4.0); Total Protein 7.2 g/dL (6.5-8.0)
[2025-04-03 12:41] LABS: Folate 9.2 ng/mL (> or = 4.0); Vitamin B12 614 pg/mL (200-900)
== END 2025-04-03 10:50 | disposition home or self-care (01) ==
LOC: HO.LAB 10:49
PROVIDERS: PCP Internal Medicine; Visit Provider Internal Medicine
DX: H66.003 Acute suppurative otitis media without spontaneous rupture of ear drum, bilateral (principal); H92.03 Otalgia, bilateral; E03.9 Hypothyroidism, unspecified; R30.0 Dysuria; R32 Unspecified urinary incontinence
CPT/HCPCS: 36415; 80053; 81001; 82607; 82746; 84439; 84443; 85025; 85652; 87086; 99212

== ENCOUNTER 2025-04-03 11:38 | Outpatient (AMB) | payer MEDICARE, MEDICAID, SELFPAY ==
[2025-04-03 11:41] VITALS: BP 124/82; PULSE 89; TEMP 36.6; O2SAT 99; BMI 32.1
--- NOTE | 2025-04-03 11:41 | MHC.OFFWIV ---
Intake Vital Signs 04/03/25 11:41 Height 5 ft 1 in Weight 170 lb BMI 32.1 BP 124/82 Blood Pressure Location Rt brachial Position Sitting Pulse 89 Pulse Source Pulse Oximeter Temp 97.8 F Temp Source Oral Pulse Oximetry (%) 99 Oxygen Delivery Method Room Air Intake Visit Reasons: EP Open area back on ear/ear pain Intake Note: presents with open wounds behind ears- applying bacitracin. pt is pulling at ears- ?irriration inside ears? Patient Tobacco Use Status: Never used Tobacco Allergies cephalexin (From KEFLEX) Allergy (Unknown, Verified 04/03/25 11:55) RASH nitrofurantoin (From MACROBID) Allergy (Unknown, Verified 04/03/25 11:55) RASH Do you need a note to return to daycare/school/sports/work: No HPI HPI Comments History of Present Illness Details History - The patient is a 34-year-old female presenting with evaluation of dryness and possible infection behind the left ear. - Dry skin behind the ear for four years, treated with bacitracin, currently has it on. - Occasional pain reported. - History of ear infections Physical Exam Physical Exam General: Cooperative, healthy appearing, comfortable, no acute distress and well developed Orientation: Patient oriented x3 Limitations: No limitations Head: Normal to inspection Ears: External ears with dryness behind the ears, TM's with purulent effusion and loss of landmarks bilaterally Face and sinus: Normal facial exam Neck: Normal visual inspection and Yes full ROM Respiratory: Normal respiratory effort and able to speak in complete sentences. Skin: No rashes or lesions noted Neuro: Patient oriented x3 Extremities: normal to inspection PFSH Medical History Urinary hesitancy Urinary urgency Impacted cerumen of both ears Vitamin D deficiency Fungal dermatitis Leg swelling Frequency of micturition Mental and behavioral problem Autism Leukopenia Hypothyroid Constipation Surgical History No pertinent past surgical history Family History Father No problems noted. Mother Drug addiction Brain mass Breast cancer Maternal Grandmother Breast cancer Maternal Uncle Colon cancer Other Mental health disorder Substance use disorder Social History Housing: Other (Long Term) Alcohol intake: never Patient Tobacco Use Status: Never used Tobacco e-Cigarette/Vaping Use: Never Used Second Hand Smoke Exposure: No service: No Current occupational status: disabled Cognitive needs: Yes Hearing needs: Yes Vision needs: No Review of Systems Const All systems reviewed & are unremarkable except as noted in HPI and below Physical Exam Vital Signs: Last Vital Signs Temp 97.8 F 04/03/25 11:41 Pulse 89 04/03/25 11:41 BP 124/82 04/03/25 11:41 Pulse Ox 99 04/03/25 11:41 Oxygen Delivery Method Room Air 04/03/25 11:41 BMI result Body Mass Index 32.1 Assessment & Plan Assessment & Plan (1) Bilateral otitis media: Code(s): H66.93 - Otitis media, unspecified, bilateral Qualifiers: Chronicity: acute Otitis media type: suppurative Recurrence: non-recurrent Spontaneous tympanic membrane rupture: without spontaneous rupture Qualified Code(s): H66.003 - Acute suppurative otitis media without spontaneous rupture of ear drum, bilateral Plan: Plan Patient was informed and verbally consented to the use of an ambient scribe for clinic note documentation during this visit. Ear Infection - Amoxicillin 500 mg twice daily for 7 days prescribed. - Filled out halfway paperwork -Dry Skin Behind The Ear, can continue bacitracin application. Medications: New amoxicillin 875 mg PO Q12H 14 tabs 0RF 7 days Coding Level of Care Code Est Pt Level 3 (12347) Diagnoses Non-recurrent acute suppurative otitis media of both ears without spontaneous rupture of tympanic membranes H66.003 Chronicity: acute Otitis media type: suppurative Recurrence: non-recurrent Spontaneous tympanic membrane rupture: without spontaneous rupture
== END 2025-04-03 12:10 | disposition home or self-care (01) ==
PROVIDERS: PCP Internal Medicine; Visit Provider Physician Assistant
DX: H66.003 Acute suppurative otitis media without spontaneous rupture of ear drum, bilateral (principal)

== ENCOUNTER 2025-04-12 14:45 | Outpatient (AMB) | payer MEDICARE, MEDICAID, SELFPAY ==
[2025-04-12 14:58] VITALS: BP 122/76; PULSE 93; O2SAT 96; BMI 32.1
--- NOTE | 2025-04-12 14:58 | A.OFFPC_ITS ---
Vital Signs 04/12/25 14:58 Height 5 ft 1 in Weight 170 lb BMI 32.1 BP 122/76 Blood Pressure Location Lt brachial Position Sitting Pulse 93 Pulse Source Pulse Oximeter Pulse Oximetry (%) 96 Oxygen Delivery Method Room Air Intake Visit Reasons: [facility] Walker at [facility] 04/06 Allergies cephalexin (From KEFLEX) Allergy (Unknown, Verified 04/12/25 14:58) RASH nitrofurantoin (From MACROBID) Allergy (Unknown, Verified 04/12/25 14:58) RASH Tobacco use date assessed: 11/07/24 Dental Screening Dental Screen Date: 09/18/24 HPI [facility] Walker at [facility] 04/06 HPI Details A video was showed to me by the guardian showing patient has episodes of jerking head movements while the patient is awake and this would self/spontaneously. And then would happen again there was no nausea no vomiting no syncopal episodes no incontinence. And this has prompted for consultation. They have denied any recent changes to the medications. Since that time from the ER patient has seen the psychiatry and has adjusted the medication. [facility] Medical History Urinary hesitancy Urinary urgency Impacted cerumen of both ears Vitamin D deficiency Fungal dermatitis Leg swelling Frequency of micturition Mental and behavioral problem Autism Leukopenia Hypothyroid Constipation Surgical History No pertinent past surgical history Family History Father No problems noted. Mother Drug addiction Brain mass Breast cancer Maternal Grandmother Breast cancer Maternal Uncle Colon cancer Other Mental health disorder Substance use disorder Social History Housing: Other ([facility]) Alcohol intake: never Patient Tobacco Use Status: Never used Tobacco Tobacco use type: Cigarette e-Cigarette/Vaping Use: Never Used Second Hand Smoke Exposure: No service: No Current occupational status: disabled Cognitive needs: Yes Hearing needs: Yes Vision needs: No Questionnaire PHQ-9 Over the last 2 weeks, how often have you been bothered by any of the following problems? 1. Little interest or pleasure in doing things: several days 2. Feeling down, depressed, or hopeless: not at all 3. Trouble falling or staying asleep, or sleeping too much: not at all 4. Feeling tired or having little energy: several days 5. Poor appetite or overeating: not at all 6. Feeling bad about yourself - or that you are a failure or have let yourself or your family down: not at all 7. Trouble concentrating on things, such as reading the newspaper or watching television: not at all 8. Moving or speaking so slowly that other people could have noticed. Or the opposite - being so fidgety or restless that you have been moving around a lot more than usual: not at all 9. Thoughts that you would be better off or of hurting yourself in some way: not at all Total score: 2 Source: Developed by Drs. Isauro Amin, Ana Chun, Erickson Fried and colleagues, with an educational orlando from [employer]. Thrive Questionnaire Date Thrive assessed: 09/18/24 I am a: Parent/Caregiver What is your living situation today?: I choose not to answer this question Within the past 12 months, did the food you bought not last and you didn't have the money to get more?: I choose not to answer this question Within the past 12 months, did you worry whether your food would run out before you got money to buy more?: I choose not to answer this question Do you have trouble paying for medicines?: I choose not to answer this question Do you have trouble getting transportation to medical appointments?: I choose not to answer this question Do you have trouble paying your heating and electricity bill?: I choose not to answer this question Do you have trouble taking care of your child, family member or friend?: I choose not to answer this question Do you have trouble with day-to-day activities such as bathing, preparing meals, shopping, managing finances, etc.?: I choose not to answer this question Are you currently unemployed and looking for a job?: I choose not to answer this question Are you interested in more education?: I choose not to answer this question Please select the resources that you would like help with: None Currently or been in a relationship where the following occur: I choose not to answer THRIVE Score: 0 AUDIT C Alcohol Use Questionnaire (AUDIT-C) 1. How often do you have a drink containing alcohol?: Never Total Score: 0 COLBY-7 AMB Questionnaire COLBY-7 Date COLBY - 7 assessed: 09/18/24 Feeling nervous, anxious, or on edge: 0 = Not at all Not being able to stop or control worryin = Not at all Worrying too much about different things: 0 = Not at all Trouble relaxin = Not at all Being so restless that it is hard to sit still: 0 = Not at all Becoming easily annoyed or irritable: 0 = Not at all Feeling afraid as if something awful might happen: 0 = Not at all Total COLBY-7 score (0-4 normal; 5-9 mild; 10-14 moderate; 15-21 severe): 0 Source: Developed by Drs. Isauro Amin, Ana Chun, Erickson Fried and colleagues, with an educational orlando from [employer]. Physical exam (Primary Care) Vital Signs: Last Vital Signs Pulse 93 04/12/25 14:58 BP 122/76 04/12/25 14:58 Pulse Ox 96 04/12/25 14:58 Oxygen Delivery Method Room Air 04/12/25 14:58 BMI result Body Mass Index 32.1 Tobacco/Smoking Status: Tobacco use Status Tobacco use date assessed 11/07/24 04/12/25 15:04 Patient Tobacco Use Status Never used Tobacco 04/12/25 15:04 Tobacco use type Cigarette 04/12/25 15:04 e-Cigarette/Vaping Use Never Used 04/12/25 15:04 PHQ-9: PHQ-9 Score PHQ-9: Total score 2 04/12/25 15:04 Thrive Assessment: Date of Thrive Assessment Date Thrive assessed 09/18/24 04/12/25 15:04 Currently or been in a relationship where the following occur: I choose not to answer Const General: alert; No acute distress Eyes Conjunctivae: conjunctivae normal Resp Auscultation: clear to auscultation bilaterally Cardio Rate: regular rate Rhythm: regular rhythm GI Inspection: Yes normal to inspection Extrem General: Yes normal to inspection and No edema Coding Level of Care Code Est Pt Level 4 (33221) Complex EM visit Add On G2211 Diagnoses Headache R51.9 Autism F84.0 Class 1 obesity due to excess calories without serious comorbidity with body mass index (BMI) of 30.0 to 30.9 in adult E66.09; Z68.30 Obesity type: due to excess calories Obesity classification: adult class 1 (BMI 30 - 34.9) Serious obesity comorbidity presence: without serious comorbidity Body mass index: BMI 30.0-30.9 Acquired hypothyroidism E03.9 Hypothyroidism type: acquired Automatism G93.89 Assessment & Plan Assessment & Plan (1) Headache: Code(s): R51.9 - Headache, unspecified Category: Medical Plan: Advised to get EEG done. Concern about risperidone tardive dyskinesia PAtient has seen Psychiatry and has adjusted med (2) Autism: Code(s): F84.0 - Autistic disorder Category: Medical Plan: Continue to follow-up with psychiatrist (3) Obesity: Code(s): E66.9 - Obesity, unspecified Category: Medical Qualifiers: Obesity type: due to excess calories Obesity classification: adult class 1 (BMI 30 - 34.9) Serious obesity comorbidity presence: without serious c omorbidity Body mass index: BMI 30.0-30.9 Qualified Code(s): E66.09 - Other obesity due to excess calories; Z68.30 - Body mass index [BMI] 30.0-30.9, adult Plan: Diet and exercise (4) Hypothyroid: Code(s): E03.9 - Hypothyroidism, unspecified Category: Medical Qualifiers: Hypothyroidism type: acquired Qualified Code(s): E03.9 - Hypothyroidism, unspecified Plan: Continue with thyroid medication (5) Automatism: Comment: ? tardive dyskinesia Code(s): G93.89 - Other specified disorders of brain Category: Medical Plan History of Present Illness The patient is a 34-year-old female presenting with a follow-up visit after an emergency room visit for headache and shaking behaviors. The patient has a history of Autism Spectrum Disorder and hypothyroidism, which are managed with ongoing care. Recently, the patient experienced an ear infection treated with amoxicillin, and there was no postictal state or incontinence noted during the shaking episodes. The patient was advised to undergo an outpatient EEG, and CT findings were negative, making seizures highly unlikely. There is a concern for tardive dyskinesia potentially secondary to risperidone, and the patient has been advised to follow up with neurology. Health Maintenance Social History Review of Systems - Neurological: Reports headache and shaking behaviors. Denies postictal state, incontinence, stroke, or seizures. Physical Exam Results - CT of the brain: Negative findings - Blood work: Normal results Plan The patient will undergo an outpatient EEG to further evaluate the shaking behaviors, as seizures are considered highly unlikely given the negative CT findings. There is a concern for tardive dyskinesia potentially related to risperidone, and a neurology consultation has been recommended to address this issue. The patient is advised to continue with thyroid medication and follow up with the psychiatrist for ongoing management of Autism Spectrum Disorder. Patient was informed and verbally consented to the use of an ambient scribe for clinic note documentation during this visit. Discussion Notes I discussed with the patient the plan to perform an outpatient EEG to evaluate the shaking behaviors, emphasizing that seizures are unlikely due to negative CT findings. We also addressed the concern of tardive dyskinesia potentially related to risperidone, recommending a neurology consultation for further evaluation. The patient was advised to continue thyroid medication and maintain follow-up with the psychiatrist for Autism Spectrum Disorder management. Patient Instructions - Schedule and complete the outpatient EEG as recommended. - Follow up with neurology for evaluation of tardive dyskinesia. - Continue taking thyroid medication as prescribed. - Maintain regular appointments with the psychiatrist for Autism Spectrum Disord er management. Orders: Orders EEG ambulatory Today R51.9 - Headache, unspecified Referrals Neurology Referral G93.89 - Other specified disorders of brain
--- OUTSIDE RECORDS SUMMARY | 2025-04-12 15:23 | XMS_ITS | Clinical Summary ---
Author Organization [facility] [address] [place] [address] [place] [phone] Phone Care Team Providers Care Hydrator Name Role Phone Christiano Cronin MD Primary Care Provider [phone] Allergies Active Allergy Reactions Criticality Noted Date [...] AM EDT Clinical Support Obstetrics and Gynecology [address] [address] Surveillance for Depo-Provera contraception (Primary Dx) 02/22/2025 10:00 AM EDT Office Visit Orthopedic Surgery - [address] [address] Kemar Porras, DPM Dermatophytosis of [...] EDT Clinical Support Obstetrics and Gynecology - [address] [address] Health Maintenance Due Date Last Done Comments [...] Insurance MEDICARE MEDICAID - [place] Care Teams Hydrator Relationship Specialty Start Date End Date Christiano Cronin MD [address] [place] [address] [address] [facility] [place] [address] PCP - General Internal Medicine 09/17/21
--- OUTSIDE RECORDS SUMMARY | 2025-04-12 15:23 | XMS_ITS | Encounter Summary ---
Author Organization [facility] Address [address] [place] [address] Phone Care Team Providers Care Plate Drying Machine Tender Name Role Phone Christiano Cronin MD Primary Care Provider Reason for Referral * Consultation - Canceled Specialty Diagnoses / Procedures Referred By Contbea cotto Referred To Contact Pediatrics System, Provider Not In, PhD [id number] [place] [phone] Phone: tel: Referral ID Status Reason Start Date Expiration Date V isits Requested Visits Authorized [id number] Canceled 09/14/2017 09/14/2018 1 1 Encounter Details Date Type Department Care Team (Late st Contact Info) Description 09/14/2017 Transcribe Orders [facility] [address] [place] [id number] Christiano Cronin MD [address] [place] [address] [address] [place] [phone] Social History Tobacco Use Types Packs/Day Years [...] Associated Diagnoses Order Schedule Ambulatory referral to [facility] Outpatient Referral Routine Ordered: 09/14/2017 documented as of this encounter Visit Diagnoses Not on filedocumented in this encounter Care Teams Plate Drying Machine Tender Relationship Specialty Start Date End Date Christiano Cronin MD [address] [place] [address] PCP - General Internal Medicine 09/14/17 documented as of this encounter Additional Source Comments The information contained in this document represents components of the legal health record. It is not the complete legal health record.[facility]
== END 2025-04-12 16:34 | disposition home or self-care (01) ==
LOC: HO.HMCH 14:46
PROVIDERS: PCP Internal Medicine; Visit Provider Internal Medicine
DX: R51.9 Headache, unspecified (principal); F84.0 Autistic disorder; E66.09 Other obesity due to excess calories; Z68.30 Body mass index [BMI] 30.0-30.9, adult; E03.9 Hypothyroidism, unspecified; G93.89 Other specified disorders of brain

== ENCOUNTER → 2025-04-12 14:45 | Outpatient (BNVA) | payer MEDICARE, MEDICAID, SELFPAY | PROVIDERS: PCP Internal Medicine; Visit Provider Internal Medicine | DX: R51.9 Headache, unspecified (principal); F84.0 Autistic disorder; E66.09 Other obesity due to excess calories; Z68.30 Body mass index [BMI] 30.0-30.9, adult; E03.9 Hypothyroidism, unspecified; G93.89 Other specified disorders of brain; Z71.3 Dietary counseling and surveillance | CPT/HCPCS: 99212 ==

== ENCOUNTER 2025-04-24 10:11 | Outpatient (AMB) | payer MEDICARE, MEDICAID, SELFPAY ==
[2025-04-24 10:13] VITALS: BP 122/80; PULSE 139; TEMP 36.2; O2SAT 98; BMI 30.3
--- NOTE | 2025-04-24 10:14 | AM.OFFVISMDC ---
Intake Vital Signs 04/24/25 10:13 Height 5 ft 1 in Weight 160 lb 6 oz BMI 30.3 BP 122/80 Blood Pressure Location Lt brachial Position Sitting Pulse 139 H Pulse Source Pulse Oximeter Temp 97.1 F Temp Source Temporal Artery Scan Pulse Oximetry (%) 98 Oxygen Delivery Method Room Air Intake Visit Reasons: SAWV Allergies cephalexin (From KEFLEX) Allergy (Unknown, Verified 04/24/25 10:18) RASH nitrofurantoin (From MACROBID) Allergy (Unknown, Verified 04/24/25 10:18) RASH Medication List - Last Reconciled 04/24/25 by Christiano Cronin MD acetaminophen ER (8 Hour Pain Reliever) 650 mg PO Q8H PRN amitriptyline 25 mg PO BEDTIME amoxicillin 875 mg PO Q12H 7 days bacitracin zinc (Antibiotic (bacitracin zinc)) 1 appl topically use topically every 12 hours as needed for ear, lacerations, cuts, scrapes; benztropine 1 mg PO BID cholecalciferol (vitamin D3) 50 mcg PO DAILY 90 days compr.stocking,thigh,short,med As directed dextromethorphan polistirex ER (12-Hour Cough Relief) 10 mL PO Q12H PRN diaper,brief,adult,disposable As directed divalproex ER mg PO DAILY fluocinolone acetonide oil 0.01% (DermOtic Oil) 2 drps otic (ears) ONCE PRN guanfacine ER 3 mg PO DAILY lanolin sdgagyj-vz-d.pet-ceres (Eucerin topical cream) 1 appl topical DAILY PRN levothyroxine 25 mcg PO QAM lorazepam (Ativan) 1 mg PO BID PRN medroxyprogesterone (Depo-Provera) 150 mg IM [id number] mirabegron ER 25 mg PO DAILY 90 days polyethylene glycol 3350 (Miralax) 17 grams PO DAILY 90 days [pull ups medium As directed] risperidone 2 mg PO BID terazosin 1 mg PO BEDTIME 90 days trazodone 100 mg PO BEDTIME HPI SAWV HPI Details [facility] Medical History Urinary hesitancy Urinary urgency Impacted cerumen of both ears Vitamin D deficiency Fungal dermatitis Leg swelling Frequency of micturition Mental and behavioral problem Autism Leukopenia Hypothyroid Constipation Surgical History No pertinent past surgical history Family History Father No problems noted. Mother Drug addiction Brain mass Breast cancer Maternal Grandmother Breast cancer Maternal Uncle Colon cancer Other Mental health disorder Substance use disorder Social History Housing: Other (Shelter) Alcohol intake: never Patient Tobacco Use Status: Never used Tobacco Tobacco use type: Cigarette e-Cigarette/Vaping Use: Never Used Second Hand Smoke Exposure: No service: No Current occupational status: disabled Cognitive needs: Yes Hearing needs: Yes Vision needs: No Questionnaire Medicare Wellness Checkup What gender do you identify with?: female During the past 4 weeks, how much have you been bothered by emotional problems such as feeling anxious, depressed, irritable, sad or downhearted, and blue?: moderately During the past 4 weeks, has your physical & emotional health limited your social activities with family, friends, neighbors, or groups?: quite a bit During the past 4 weeks, how much bodily pain have you generally had?: moderate pain During the past 4 weeks, was someone available to help you if you needed & wanted help?: yes, as much as I wanted During the past 4 weeks, what was the hardest physical activity you could do for at least 2 minutes?: moderate Can you get to places out of walking distance without help? (For eg., can you travel alone on buses, taxis or drive your car?): No Can you go shopping for groceries or clothes without someone's help?: No Can you prepare your own meals?: No Can you do your housework without help?: No Because of any health problems, do you need the help of another person with your personal care needs such as eating, bathing, dressing or getting around the house?: Yes Can you handle your own money without help?: No During the past 4 weeks, how would you rate your health in general?: fair During the past 4 weeks how have things been going for you?: good & bad parts about equal Are you having difficulties driving your car?: not applicable, I don't use a car Do you always fasten your seat belt when you are in a car?: yes, usually During past 4 weeks, have you been bothered by the following: never: Falling or dizzy when standing up, Sexual problems?, Trouble eating well?, Teeth or denture problems?, Problems using the telephone? and Tiredness or fatigue? Have you fallen 2 or more times in the past year?: No Are you afraid of falling?: No Are you a smoker?: no During the past 4 weeks, how many drinks of wine, beer, or other alcoholic beverages did you have?: no alcohol at all Do you exercise for about 20 minutes 3 or more times a week?: yes, some of the time Have you been given information to help with the following?: yes: Hazards in your house that might hurt you? and yes: Keeping track of your medications? How often do you have trouble taking medicines the way you have been told to take them?: I always take medicine as prescribed How confident are you that you can control & manage most of your health problems?: somewhat confident What is your race?: Black or PHQ-9 Over the last 2 weeks, how often have you been bothered by any of the following problems? 1. Little interest or pleasure in doing things: not at all 2. Feeling down, depressed, or hopeless: not at all 3. Trouble falling or staying asleep, or sleeping too much: not at all 4. Feeling tired or having little energy: not at all 5. Poor appetite or overeating: not at all 6. Feeling bad about yourself - or that you are a failure or have let yourself or your family down: not at all 7. Trouble concentrating on things, such as reading the newspaper or watching television: not at all 8. Moving or speaking so slowly that other people could have noticed. Or the opposite - being so fidgety or restless that you have been moving around a lot more than usual: not at all 9. Thoughts that you would be better off or of hurting yourself in some way: not at all Total score: 0 Depression Screening Interpretation: Negative Depression Screening Done: Yes 68984 - PHQ-9 Billing: Yes Source: Developed by Drs. Isauro Amin, Ana Chun, Erickson Fried and colleagues, with an educational orlando from [employer]). Review of Systems Const Denies poor appetite and Denies weakness Eyes Denies no additional complaints ENT Reports Normal hearing present, Denies dizziness, Denies nasal congestion, Denies tinnitus and Denies sore throat Card Denies chest pain, Denies syncope, Denies rapid heart rate and Denies dyspnea Resp Denies cough and Denies dyspnea GI Denies change in stool character, Reports constipation, Denies diarrhea, Denies nausea and Denies vomiting Denies urinary frequency, Denies difficulty voiding and Denies dysuria Neuro Reports Normal hearing present, Denies confusion, Denies dizziness, Denies syncope and Denies weakness Psych Denies confusion Physical Exam Vital Signs: Last Vital Signs Temp 97.1 F 04/24/25 10:13 Pulse 139 H 04/24/25 10:13 BP 122/80 04/24/25 10:13 Pulse Ox 98 04/24/25 10:13 Oxygen Delivery Method Room Air 04/24/25 10:13 BMI result Body Mass Index 30.3 Const General: alert and awake; No confusion Orientation/consciousness: No confusion HEENT Head: Yes normocephalic Ears: external ears normal and TM's normal bilaterally Face and sinus: Yes normal facial exam Mouth: moist mucous membranes Throat: Yes tonsils normal Eyes Conjunctivae: conjunctivae normal Pupils: Equal, round and reactive pupils present and Pupil accommodation reflex normal Direct Ophthalmoscopy: normal light reflex Neck Neck: No lymphadenopathy Thyroid: Thyroid normal Chest Chest palpation & inspection: normal inspection of the chest Resp Effort & Inspection: normal respiratory effort and no audible wheezes Auscultation: clear to auscultation bilaterally, no crackles, no wheezes and lung sounds not diminished Cardio Rate: regular rate Rhythm: regular rhythm Peripheral pulses: radial pulses present and dorsalis pedis present GI Palpation (GI): no masses Auscultation: normal bowel sounds and normoactive bowel sounds Rectal Exam - Female: deferred Skin General skin exam: no rashes or lesions noted Rashes: no rashes Neuro General: deep tendon reflexes 2+ bilaterally and No confusion Cranial nerves: Yes Equal, round and reactive pupils present, Yes Midline tongue present, Yes Normal hearing present and Yes Ability to bilaterally elevate shoulders present Cognition (Neuro): normal cognition Gait exam (Neuro): Normal gait present Motor exam (neuro): 5/5 motor strength present throughout Deep tendon reflexes (DTR's): Right brachioradialis reflex intensity grade: 2+, Left brachioradialis reflex intensity grade: 2+, Right patellar reflex intensity grade: 2+ and Left patellar reflex intensity grade: 2+ Extrem General: No edema Assessment & Plan Assessment & Plan (1) Medicare annual wellness visit, subsequent: Code(s): Z00.00 - Encounter for general adult medical examination without abnormal findings Plan: Patient is advised to eat healthy, keep well hydrated, keep active and have adequate sleep. (2) Autism: Code(s): F84.0 - Autistic disorder Plan: Continue to follow-up with psychiatry (3) Obesity: Code(s): E66.9 - Obesity, unspecified Qualifiers: Body mass index: BMI 30.0-30.9 Obesity classification: adult class 1 (BMI 30 - 34.9) Obesity type: due to excess calories Serious obesity comorbidity presence: without serious comorbidity Qualified Code(s): E66.09 - Other obesity due to excess calories; Z68.30 - Body mass index [BMI] 30.0-30.9, adult Plan: Diet and exercise (4) Hypothyroid: Code(s): E03.9 - Hypothyroidism, unspecified Qualifiers: Hypothyroidism type: acquired Qualified Code(s): E03.9 - Hypothyroidism, unspecified Plan: Continue with thyroid medication Plan History of Present Illness The patient is a 34-year-old female presenting for an annual wellness visit. The patient has a history of obesity and autism, which have been ongoing conditions. She also has a diagnosis of hypothyroidism, for which she is currently on medication. In the past, the patient experienced automatic movements and was referred to neurology for further evaluation. A virtual neurology appointment was scheduled for May 21, 2022. The patient's last blood work on April 03 showed normal blood count, electrolytes, renal function, blood sugar, and liver function. Her cholesterol test last year indicated an LDL level of 97 mg/dL, and her B12, folic acid, and thyroid levels were within normal limits. There was a finding of white blood cells in the urine during the last test on April 03, which could indicate a urinary tract infection if symptoms are present. Health Maintenance - Annual wellness visit conducted - Follow-up with psychiatry recommended - Diet and exercise advised Social History Review of Systems Physical Exam General: Cooperative, healthy appearing, comfortable, no acute distress and well developed Orientation: Patient oriented x3 Limitations: No limitations Head: Normal to inspection Ears: Hearing grossly normal bilaterally, history of frequent infections Nose: Normal external nose present Face and sinus: Normal facial exam Eyes: Appearance normal, both eyes and all related structures Neck: Normal visual inspection and Yes full ROM Respiratory: Normal respiratory effort and able to speak in complete sentences. Clear to auscultation bilaterally Cardiovascular: Regular rate and rhythm. Normal S1 and S2 GI: Normal to inspection. Soft to palpation and nontender Skin: No rashes or lesions noted, but big spots have come on the back Neuro: Patient oriented x3 Extremities: Normal to inspection Results - Labs: Normal blood count, electrolytes, renal function, blood sugar, liver function as of April 03 - Labs: LDL cholesterol at 97 mg/dL, B12, folic acid, and thyroid levels within normal limits - Labs: White blood cells present in urine, indicating possible urinary tract infection if symptomatic Plan Patient was informed and verbally consented to the use of an ambient scribe for clinic note documentation during this visit. 1. Obesity The patient is advised to continue with diet and exercise to manage obesity. 2. Autism The patient should continue follow-up with psychiatry for autism management. 3. Hypothyroidism The patient is to continue with her current thyroid medication. 4. Automatic Movements The patient was referred to neurology for evaluation of automatic movements. 5. Urinary Tract Infection (Suspected) If symptoms such as pain during urination, fever, or abdominal pain occur, the patient should be evaluated for a urinary tract infection. Discussion Notes Patient Instructions - Continue with diet and exercise regimen. - Follow up with psychiatry as scheduled. - Continue taking thyroid medication as prescribed. - Monitor for symptoms of urinary tract infection and seek medical attention if symptoms occur. Medications: New risperidone 2 mg PO BID 60 tabs 0RF F84.0 - Autistic disorder Quality Reporting (2019) Depression/Bipolar (159/160/161/177) PHQ-9: Total score: 0 Coding Level of Care Code Medicare Subsequent (G0439) Diagnoses Medicare annual wellness visit, subsequent Z00.00 Autism F84.0 Class 1 obesity due to excess calories without serious comorbidity with body mass index (BMI) of 30.0 to 30.9 in adult E66.09; Z68.30 Body mass index: BMI 30.0-30.9 Obesity classification: adult class 1 (BMI 30 - 34.9) Obesity type: due to excess calories Serious obesity comorbidity presence: without serious comorbidity Acquired hypothyroidism E03.9 Hypothyroidism type: acquired Additional Codes PHQ-9 - 02196 - PHQ-9 Billing: Yes ([id number])
--- OUTSIDE RECORDS SUMMARY | 2025-04-24 10:55 | XMS_ITS | Encounter Summary ---
Author Organization [facility] Address [address] [place] [address] Phone Care Team Providers Care Cork Tile Floor Layer Name Role Phone Christiano Cronin MD Primary Care Provider Reason for Referral * Consultation - Canceled Specialty Diagnoses / Procedures Referred By Contbea cotto Referred To [facility], Provider Not In, PhD [id number] [place] [phone] Phone: tel: Referral ID Status Reason Start Date Expiration Date V isits Requested Visits Authorized [id number] Canceled 09/14/2017 09/14/2018 1 1 Encounter Details Date Type Department Care Team (Late st Contact Info) Description 09/14/2017 Transcribe Orders [facility] [address] [place] [phone] Christiano Cronin MD [address] [place] [address] Drive [address] [place] [phone] Social History Tobacco Use Types Packs/Day Years [...] Associated Diagnoses Order Schedule Ambulatory referral to [facility] Outpatient Referral Routine Ordered: 09/14/2017 documented as of this encounter Visit Diagnoses Not on filedocumented in this encounter Care Teams Cork Tile Floor Layer Relationship Specialty Start Date End Date Christiano Cronin MD [address] [place] [address] PCP - General Internal Medicine 09/14/17 documented as of this encounter Additional Source Comments The information contained in this document represents components of the legal health record. It is not the complete legal health record.[facility]
--- OUTSIDE RECORDS SUMMARY | 2025-04-24 10:55 | XMS_ITS | Clinical Summary ---
Author Organization [facility] Address [address] [place] [address] [place] [phone] Phone Care Team Providers Care Vamp Cut Out Worker Name Role Phone Christiano Cronin MD Primary Care Provider [phone] Social History Tobacco Use Types Packs/Day Years Used Date Smoking Tobacco: Never Assessed Comments Unknown Sex and Gender Information Value Date Recorded Sex Assigned at Not on file Legal Sex Female 11:01 AM EST Gender Identity Not on file Sexual Orientation Not on file Plan of Treatment Not on file Medical Devices Not on file Insurance [facility] MEDICARE PART A & B [place] & [facility] [place] A & B Care Teams Vamp Cut Out Worker Relationship Specialty Start Date End Date Christiano Cronin MD [address] [place] [address] Drive [address] [place] [address] PCP - General Internal Medicine 09/14/17 Additional Source Comments The information contained in this document represents components of the legal health record. It is not the complete legal health record.[facility]
--- OUTSIDE RECORDS SUMMARY | 2025-04-24 10:55 | XMS_ITS | Clinical Summary ---
Author Organization [facility] [address] [place] [address] [place] [phone] Phone Care Team Providers Care Financial Processing Clerk Name Role Phone Christiano Cronin MD Primary Care Provider [phone] Allergies Active Allergy Reactions Criticality Noted Date [...] AM EDT Clinical Support Obstetrics and Gynecology [address] [phone] Surveillance for Depo-Provera contraception (Primary Dx) 02/22/2025 10:00 AM EDT Office Visit Orthopedic Surgery - [address] [phone] Kemar Porras, DPM Dermatophytosis of nail (Primary [...] AM EDT Clinical Support Obstetrics and Gynecology [address] [phone] Health Maintenance Due Date Last Done Comments Hepatitis B Vaccines (1 of 3 - 19+ 3-dose series) 2011 Cervical Cancer Screening: Pap Smear 2013 HIV Screening 08/08/2022 Hepatitis C Screening 08/08/2022 Medicare Annual Wellness Visit 08/08/2022 Social Influencers of Health Screening 08/08/2022 COVID-19 Vaccine (3 season) 2024 06/05/2021, 09/24/2020 Depression Screening 08/30/2024 [...] Insurance MEDICARE MEDICAID - [place] Care Teams Financial Processing Clerk Relationship Specialty Start Date End Date Christiano Cronin MD [address] [place] [address] [address] [facility] [place] [address] PCP - General Internal Medicine 09/17/21
== END 2025-04-24 11:34 | disposition home or self-care (01) ==
LOC: HO.HMCH 10:12
PROVIDERS: PCP Internal Medicine; Visit Provider Internal Medicine
DX: Z00.00 Encounter for general adult medical examination without abnormal findings (principal); F84.0 Autistic disorder; E66.09 Other obesity due to excess calories; Z68.30 Body mass index [BMI] 30.0-30.9, adult; E03.9 Hypothyroidism, unspecified

== ENCOUNTER → 2025-04-24 10:11 | Outpatient (BNVA) | payer MEDICARE, MEDICAID, SELFPAY | PROVIDERS: PCP Internal Medicine; Visit Provider Internal Medicine | DX: Z00.00 Encounter for general adult medical examination without abnormal findings (principal); F84.0 Autistic disorder; E66.09 Other obesity due to excess calories; Z68.30 Body mass index [BMI] 30.0-30.9, adult; E03.9 Hypothyroidism, unspecified; Z71.3 Dietary counseling and surveillance | CPT/HCPCS: 96127 ==

== ENCOUNTER 2025-05-21 09:31 | Outpatient (AMB) | payer MEDICARE, MEDICAID, SELFPAY ==
[2025-05-21 09:34] VITALS: BP 120/68; PULSE 71; O2SAT 96; BMI 30.8
--- NOTE | 2025-05-21 09:34 | A.OFFVIS_ITS ---
Vital Signs 05/21/25 09:34 Height 5 ft 1 in Weight 163 lb 2 oz BMI 30.8 BP 120/68 Blood Pressure Location Rt brachial Position Sitting Pulse 71 Pulse Source Pulse Oximeter Pulse Oximetry (%) 96 Oxygen Delivery Method Room Air Intake Visit Reasons: INP - Other specified disorders of brain Intake Note: Evaluation of tardive dyskinesia and other specific disorders of the brain Supervisor Lamp Shades Required: No Accompanied by: game programer Allergies cephalexin (From KEFLEX) Allergy (Unknown, Verified 04/24/25 10:18) RASH nitrofurantoin (From MACROBID) Allergy (Unknown, Verified 04/24/25 10:18) RASH HPI Comments Details: 34y/o female with Autism , mental and behavioral issues , developmental delay intellectual disability comes for abnormal involuntary movements. she is accompanied by her manager erp and a worker. History was obtained from general store manager.she always had some abnormal movements - closes her eyes and holds her hand in agrasp lasting few seconds she was in in the ER twice this year for episodes on head nodding, staring, extremity shaking ,headaches lasting 2 days . Apr 06 2025 and May 04 2025 No post ictal confusion . [facility] ER visits she king shad multiple minor epsiodes of staring and shaking. [facility] Medical History (Updated 05/21/25 @ 10:13 by Ladonna Christy MD) Abnormal involuntary movements Urinary hesitancy Urinary urgency Impacted cerumen of both ears Vitamin D deficiency Fungal dermatitis Leg swelling Frequency of micturition Mental and behavioral problem Autism Leukopenia Hypothyroid Constipation Surgical History No pertinent past surgical history Family History Father No problems noted. Mother Drug addiction Brain mass Breast cancer Maternal Grandmother Breast cancer Maternal Uncle Colon cancer Other Mental health disorder Substance use disorder Social History Housing: Other (Prison) Alcohol intake: never Patient Tobacco Use Status: Never used Tobacco Tobacco use type: Cigarette e-Cigarette/Vaping Use: Never Used Second Hand Smoke Exposure: No service: No Current occupational status: disabled Cognitive needs: Yes Hearing needs: Yes Vision needs: No Physical Exam Vital Signs: Last Vital Signs Pulse 71 05/21/25 09:34 BP 120/68 05/21/25 09:34 Pulse Ox 96 05/21/25 09:34 Oxygen Delivery Method Room Air 05/21/25 09:34 BMI result Body Mass Index 30.8 Const Other: follows simple commands speaks word incomprhensible General: cooperative and no acute distress Nutritional Appearance: body habitus not average Neuro Other: moves all extremities Increased tone in LE No automatisms noted today No perioral movements or tongue movements gait- mild wide based General: moves all extremities Deep tendon reflexes (DTR's): Right triceps reflex intensity grade: 1+, Left triceps reflex intensity grade: 1+, Rt Biceps (C5, C6): 1+, Left biceps reflex intensity grade: 1+, Right brachioradialis reflex intensity grade: 1+, Left brachioradialis reflex intensity grade: 1+, Right patellar reflex intensity grade: 2+ and Left patellar reflex intensity grade: 2+ Assessment & Plan Assessment & Plan (1) Abnormal involuntary movements: Comment: ? automatisms, ? tardive dystonia ? seizures Code(s): R25.9 - Unspecified abnormal involuntary movements Category: Medical Plan I will evaluate her with EEG Increase depakote ER 250mg bid Orders: Orders EEG electroencephalogram Today R25.9 - Unspecified abnormal involuntary movements Medications: Changed From divalproex ER PO DAILY To divalproex ER 250 mg PO BID 60 tabs 4RF Coding Level of Care Code New Pt Level 4 (05018) Diagnoses Abnormal involuntary movements R25.9
--- OUTSIDE RECORDS SUMMARY | 2025-05-21 11:14 | XMS_ITS | Clinical Summary ---
Author Organization [facility] [address] [place] [address] [place] [phone] Phone Care Team Providers Care Gold Miner Blasting Name Role Phone Christiano Cronin MD Primary Care Provider [phone] Allergies Active Allergy Reactions Criticality Noted Date [...] AM EDT Clinical Support Obstetrics and Gynecology [address] [phone] Surveillance for Depo-Provera contraception (Primary Dx) 02/22/2025 10:00 AM EDT Office Visit Orthopedic Surgery - [address] [phone] Kemar Porras, DPM Dermatophytosis of nail (Primary [...] AM EDT Clinical Support Obstetrics and Gynecology [address] [phone] Health Maintenance Due Date Last Done Comments Hepatitis B Vaccines (1 of 3 - 19+ 3-dose series) 2011 Cervical Cancer Screening: Pap Smear 2013 HIV Screening 08/08/2022 Hepatitis C Screening 08/08/2022 Medicare Annual Wellness Visit 08/08/2022 Social Influencers of Health Screening 08/08/2022 Depression Screening 08/30/2024 COVID-19 Vaccine (3 - season) 2025 06/05/2021, 09/24/2020 Influenza Vaccine (#1) 2025 3, 10/07/2022, 06/05/2021, [...] Insurance MEDICARE MEDICAID - [place] Care Teams Gold Miner Blasting Relationship Specialty Start Date End Date Christiano Cronin MD [address] [place] [address] [address] [facility] [place] [address] PCP - General Internal Medicine 09/17/21
--- OUTSIDE RECORDS SUMMARY | 2025-05-21 11:14 | XMS_ITS | Clinical Summary ---
Author Organization [facility] Address [address] [place] [address] [place] [address] Phone Care Team Providers Care Director Sports Name Role Phone Christiano Cronin MD Primary Care Provider [phone] Social History Tobacco Use Types Packs/Day Years Used Date Smoking Tobacco: Never Assessed Comments Unknown Sex and Gender Information Value Date Recorded Sex Assigned at Not on file Legal Sex Female 11:01 AM EST Gender Identity Not on file Sexual Orientation Not on file Plan of Treatment Not on file Medical Devices Not on file Insurance [facility] MEDIC[facility] PART A & [place] [facility] PART [facility] [place] & B Care Teams Director Sports Relationship Specialty Start Date End Date Christiano Cronin MD [address] [place] [address] Drive [address] [place] [address] PCP - General Internal Medicine 09/14/17 Additional Source Comments The information contained in this document represents components of the legal health record. It is not the complete legal health record.[facility]
--- OUTSIDE RECORDS SUMMARY | 2025-05-21 11:14 | XMS_ITS | Encounter Summary ---
Author Organization [facility] Address [address] [place] [address] Phone Care Team Providers Care Tonsorial Artist Name Role Phone Christiano Cronin MD Primary Care Provider [phone] Reason for Referral * Consultation - Canceled Specialty Diagnoses / Procedures Referred By Contbea cotto Referred To [facility], Provider Not In, PhD [id number] [place] [address] Phone: tel: Referral ID Status Reason Start Date Expiration Date V isits Requested Visits Authorized [id number] Canceled 09/14/2017 09/14/2018 1 1 Encounter Details Date Type Department Care Team (Late st Contact Info) Description 09/14/2017 Transcribe Orders [facility] [address] [place] [address] Christiano Cronin MD [address] [place] [address] Drive [address] [place] [id number] Social History Tobacco Use Types Packs/Day Years [...] Associated Diagnoses Order Schedule Ambulatory referral to [facility] Outpatient Referral Routine Ordered: 09/14/2017 documented as of this encounter Visit Diagnoses Not on filedocumented in this encounter Care Teams Tonsorial Artist Relationship Specialty Start Date End Date Christiano Cronin MD [address] [place] [address] PCP - General Internal Medicine 09/14/17 documented as of this encounter Additional Source Comments The information contained in this document represents components of the legal health record. It is not the complete legal health record.[facility]
== END 2025-05-21 10:10 | disposition home or self-care (01) ==
PROVIDERS: PCP Internal Medicine; Visit Provider Psychiatry & Neurology Neurology
DX: R25.9 Unspecified abnormal involuntary movements (principal)
CPT/HCPCS: 99204

== ENCOUNTER → 2025-05-21 09:31 | Outpatient (BNVA) | payer MEDICARE, MEDICAID, SELFPAY | PROVIDERS: PCP Internal Medicine; Visit Provider Psychiatry & Neurology Neurology | DX: R25.9 Unspecified abnormal involuntary movements (principal) | CPT/HCPCS: 99202 ==

== ENCOUNTER 2025-05-30 08:37 | Outpatient (AMB) | payer MEDICARE, MEDICAID, SELFPAY ==
--- NOTE | 2025-05-30 08:40 | A.OFFPC_ITS ---
Vital Signs 05/30/25 08:41 Height 5 ft 1 in Weight 168 lb 10.458 oz BMI 31.9 BP 124/66 Blood Pressure Location Rt brachial Position Sitting Pulse 135 H Pulse Source Pulse Oximeter Temp 96.9 F Temp Source Temporal Artery Scan Pulse Oximetry (%) 96 Oxygen Delivery Method Room Air Intake Visit Reasons: [facility] 05/07 Intake Note: Patient is here to follow-up after a visit the emergency department at [facility] on 05/04/25 Piece Cutter Required: No Medical Affairs Specialist: Present Accompanied by: staff Allergies cephalexin (From KEFLEX) Allergy (Unknown, Verified 05/30/25 08:44) RASH nitrofurantoin (From MACROBID) Allergy (Unknown, Verified 05/30/25 08:44) RASH Medication List - Last Reconciled 05/30/25 by Monet Case PA-C acetaminophen ER (8 Hour Pain Reliever) 650 mg PO Q8H PRN amitriptyline 25 mg PO BEDTIME bacitracin zinc (Antibiotic (bacitracin zinc)) 1 appl topically use topically every 12 hours as needed for ear, lacerations, cuts, scrapes; benztropine 1 mg PO BID cholecalciferol (vitamin D3) 50 mcg PO DAILY 90 days compr.stocking,thigh,short,med As directed dextromethorphan polistirex ER (12-Hour Cough Relief) 10 mL PO Q12H PRN diaper,brief,adult,disposable As directed divalproex ER 250 mg PO BID fluocinolone acetonide oil 0.01% (DermOtic Oil) 2 drps otic (ears) ONCE PRN guanfacine ER 3 mg PO DAILY lanolin giaercc-nw-w.pet-ceres (Eucerin topical cream) 1 appl topical DAILY PRN levothyroxine 25 mcg PO QAM lorazepam (Ativan) 1 mg PO BID PRN medroxyprogesterone (Depo-Provera) 150 mg IM [id number] mirabegron ER 25 mg PO DAILY 90 days polyethylene glycol 3350 (Miralax) 17 grams PO DAILY 90 days [pull ups medium As directed] risperidone 2 mg PO BID terazosin 1 mg PO BEDTIME 90 days trazodone 100 mg PO BEDTIME Tobacco use date assessed: 05/30/25 Dental Screening Dental Screen Date: 09/18/24 [facility] 05/07 HPI Details 34-year-old female with past medical his tory of autism, hypothyroid, mental and behavioral problem last seen 04/24/2025 coming in for hospital discharge follow up. In review of the notes, patient was seen in [facility] ED 05/04/2025 for seizure-like activity, concern for UTI and patient was given antibiotics and discharged home. Presenting with possible seizure activity. The patient experienced episodes that led to an emergency room visit where blood tests and imaging were conducted, but she was discharged without a definitive diagnosis. The episodes are characterized by spasms and head shaking, with the patient remaining conscious and able to communicate during the events. The neurologist increased the Depakote dosage to twice daily, and an EEG has been ordered to evaluate for seizure activity. The patient has no history of seizures, and the episodes do not typically result in loss of consciousness. A urinary tract infection was treated with antibiotics, and the patient completed the course without further urinary symptoms. [facility] Medical History Abnormal involuntary movements Urinary hesitancy Urinary urgency Impacted cerumen of both ears Vitamin D deficiency Fungal dermatitis Leg swelling Frequency of micturition Mental and behavioral problem Autism Leukopenia Hypothyroid Constipation Surgical History No pertinent past surgical history Family History Father No problems noted. Mother Drug addiction Brain mass Breast cancer Maternal Grandmother Breast cancer Maternal Uncle Colon cancer Other Mental health disorder Substance use disorder Social History Housing: Other (Correction) Alcohol intake: never Patient Tobacco Use Status: Never used Tobacco Tobacco use type: Cigarette e-Cigarette/Vaping Use: Never Used Second Hand Smoke Exposure: No service: No Current occupational status: disabled Cognitive needs: Yes Hearing needs: Yes Vision needs: No Questionnaire Thrive Questionnaire Date Thrive assessed: 04/12/25 I am a: Parent/Caregiver What is your living situation today?: I choose not to answer this question Within the past 12 months, did the food you bought not last and you didn't have the money to get more?: I choose not to answer this question Within the past 12 months, did you worry whether your food would run out before you got money to buy more?: I choose not to answer this question Do you have trouble paying for medicines?: I choose not to answer this question Do you have trouble getting transportation to medical appointments?: I choose not to answer this question Do you have trouble paying your heating and electricity bill?: I choose not to answer this question Do you have trouble taking care of your child, family member or friend?: I choose not to answer this question Do you have trouble with day-to-day activities such as bathing, preparing meals, shopping, managing finances, etc.?: I choose not to answer this question Are you currently unemployed and looking for a job?: I choose not to answer this question Are you interested in more education?: I choose not to answer this question Please select the resources that you would like help with: None Currently or been in a relationship where the following occur: I choose not to answer THRIVE Score: 0 COLBY-7 AMB Questionnaire COLBY-7 Date COLBY - 7 assessed: 09/18/24 Source: Developed by Drs. Isauro Amin, Ana Chun, Erickson Fried and colleagues, with an educational [place] from [employer]. Review of Systems Const Details: ROS obtained from patient student services representative Denies fever(s) and Denies poor appetite Eyes Reports no additional complaints ENT Denies dizziness Card Denies edema and Denies dyspnea Resp Denies cough and Denies dyspnea GI Denies diarrhea, Denies nausea and Denies vomiting Reports no additional complaints Musc Reports as per HPI and Denies abnormal gait Skin/Breast Reports system reviewed and no additional complaints, except as documented Neuro Reports as per HPI, Denies abnormal gait and Denies dizziness Psych Reports no additional complaints Physical exam (Primary Care) Vital Signs: Last Vital Signs Temp 96.9 F 05/30/25 08:41 Pulse 135 H 05/30/25 08:41 BP 124/66 05/30/25 08:41 Pulse Ox 96 05/30/25 08:41 Oxygen Delivery Method Room Air 05/30/25 08:41 BMI result Body Mass Index 31.9 Tobacco/Smoking Status: Tobacco use Status Tobacco use date assessed 05/30/25 05/30/25 08:44 Patient Tobacco Use Status Never used Tobacco 05/30/25 08:44 Tobacco use type Cigarette 05/30/25 08:44 e-Cigarette/Vaping Use Never Used 05/30/25 08:44 Thrive Assessment: Date of Thrive Assessment Date Thrive assessed 04/12/25 05/30/25 08:44 Currently or been in a relationship where the following occur: I choose not to answer Const General: cooperative, healthy appearing, comfortable and no acute distress Orientation/consciousness: patient oriented x3 HENMT Head: Yes normocephalic Ears: hearing grossly normal bilaterally General nose exam: Normal external nose present Eyes General: appearance normal, both eyes and all related structures Conjunctivae: conjunctivae normal Neck Neck: Yes full ROM and Yes no lymphadenopathy Resp Effort & Inspection: normal respiratory effort Auscultation: clear to auscultation bilaterally, no crackles, no rales, no rhonchi and no wheezes Cardio Rate: regular rate Rhythm: regular rhythm Skin General skin exam: no rashes or lesions noted Neuro General: patient oriented x3 Gait exam (Neuro): Normal gait present Extrem General: Yes normal to inspection, Yes full ROM and No edema Psych Affect: normal affect Attitude: cooperative Insight: Good insight present (Psych) Judgement: Good judgement present (Psych) Coding Level of Care Code Est Pt Level 3 (80506) Diagnoses Abnormal involuntary movements R25.9 Automatism G93.89 Assessment & Plan Assessment & Plan (1) Abnormal involuntary movements: Comment: ? automatisms, ? tardive dystonia ? seizures Code(s): R25.9 - Unspecified abnormal involuntary movements Category: Medical Plan: The plan includes completing the EEG to assess for seizure activity and monitoring the patient's response to the increased Depakote dosage. The patient is advised to keep a log of episodes, noting the time, duration, and symptoms, to provide detailed information to the neurologist. She will continue to follow with neurology. (2) Automatism: Comment: ? tardive dyskinesia Code(s): G93.89 - Other specified disorders of brain Category: Medical Plan: See above Plan I discussed with the patient the importance of completing the EEG to evaluate for possible seizure activity and the rationale for increasing the Depakote dosage. We also reviewed the need to maintain a log of episodes to aid in diagnosis and management. The patient was informed about the completion of antibiotic treatment for the urinary tract infection and the absence of further symptoms. This note was constructed using voice recognition software. While every effort has been made to ensure accuracy and collections specialist, still areas may have been included sometimes these areas may affect the content or meeting of the given symptoms. Total time spent caring for the patient today was 20 minutes. This includes time spent before the visit reviewing the chart, time spent during the visit, and time spent after the visit and documentation. Patient was informed and verbally consented to the use of an ambient scribe for clinic note documentation during this visit.
[2025-05-30 08:41] VITALS: BP 124/66; PULSE 135; TEMP 36.1; O2SAT 96; BMI 31.9
--- OUTSIDE RECORDS SUMMARY | 2025-05-30 09:09 | XMS_ITS | Continuity of Care Document ---
Author Organization [place] - [facility], [facility] Address [address] [place] [address] Care Team Providers Care Protective Signal Operator Name Role Phone STEPHANIE COYNE Primary Care Provider [phone] Assessment Encounter Date Assessment Date Assessment LastModified by Organization Details LastModified Time 05/28/2025 05/28/2025 34 year old female presents for cerumen removal. Cerumen impaction removed bilaterally. Bilateral TMs are intact. Follow up in 3 months for routine debridement. sam Not available 05/28/2025 15:00:12 Plan of Treatment Reminders Order Date Submit Date Provider Last Modified By Organization Details Last Modified Time Details Appointments Establish ed 15 2025 10:30A M CONNOR NARAYAN PA-C Not available Not available Not available Lab None recorded. Referral None recorded. Procedures None recorded. Surgeries None recorded. Imaging None recorded. Medication Orders None recorded. Patient TargetsNo targets recorded. Patient InstructionsNo instructions recorded. Reason for Referral None Reported. Problems Name Problem SNOMED Code Status Onset Date Resolution Date Notes Provider Name and Address Organization Details Recorded Time Impacted cerumen in left ear 89218151572 03931 Active 2018 Impacted cerumen, left ear; Note: Date Diagnosed : 02/15/2019 11:37 AM (H61.22) Not Available [facility] 4 02:18:26 Impacted cerumen of bilateral ears 56017877304 86543 Active 2018 Impacted cerumen, bilateral ; Note: Date Diagnosed : 9 2:01 PM (H61.23) CONNOR NARAYAN PA-C [address] [place], [address] , [place] - [facility] 5 15:00:12 Diffuse otitis externa 17177730 Active 2019 Diffuse otitis externa, right ear; Note: Date Diagnosed : 0 3:44 PM (H60.311) Not Available [facility] 4 02:18:24 Delayed milestone 650863507 Active 2021 Delayed milestone in childhood ; Note: Date Diagnosed : 05/14/2022 12:06 PM (R62.0) Not Available [facility] 4 02:18:51 Abnormal auditory perceptio n 73685005 Active 2021 Other abnormal auditory perceptio ns, bilateral ; Note: Date Diagnosed : 05/14/2022 12:06 PM (H93.293) Not Available [facility] 4 02:18:09 Foreign body in right ear 62313175894 983514 Active 2021 Foreign body in right ear, initial encounter ; Note: Date Diagnosed : 05/14/2022 1:15 PM (T16.1XXA ) Not Available [facility] 4 02:18:47 Acute eczematoi d otitis externa 29381222 Active 2021 Acute eczematoi d otitis externa, bilateral ; Note: Date Diagnosed : 05/14/2022 1:16 PM (H60.543) Not Available [facility] 4 02:18:59 Acute myringiti s 866427 Active 2023 CONNOR NARAYAN PA-C [address] [address], [place], [address] , [facility] - [facility] 4 11:32:58 Acute myringiti s 584755 Active 2023 CONNOR NARAYAN PA-C [address] [place], [place] [address], [address] , [facility] - [facility] 4 11:33:03 Problem Notes None recorded. Procedures Surgical History Date Name Laterality Status Provider Name and Address Organization Details Recorded Time 5 Cerumen removal without microscope bilat completed CONNOR NARAYAN PA-C [address] [facility], [place], [address], [place] - [facility] 05/28/2025 15:00:09 5 Cerumen removal without microscope bilat completed CONNOR NARAYAN PA-C [address] [facility], [place], [address], [place] - [facility] 02/22/2025 13:06:46 4 Cerumen removal without microscope bilat completed CONNOR NARAYAN PA-C [address] [facility], [place], [address], [place] - [facility] 08/24/2024 11:03:07 4 Cerumen removal without microscope bilat completed CONNOR NARAYAN PA-C [address] [facility] [address], [place], [address], [place] - [facility] 05/11/2024 11:38:47 Imaging Results None recorded. Procedure Notes None recorded. Medical Equipment None Reported. Allergies Allergen ID Allergen Name Allergen Category Reaction Reaction Severity Criticality Documentation Date Start Date Code Code System Note Provider Name and Address Organization Details Recorded Time 994281 Keflex medicatio n Not available Not available Not available 08/24/2024 15209 7 RxNorm CONNOR NARAYAN PA-C [address] [facility],[address], [address], [facility] - [facility] 4 11:19:31 [id number] Macrobid medicatio n Not available Not available Not available 08/24/2024 34555 1 RxNorm CONNOR NARAYAN PA-C [address] [facility], [address] [facility], [place], [address], [facility] - [facility] 4 11:19:38 Medications Name Sig Start Date Stop Date Status Note LastModified by Organization Details LastModified Time Prescripti on - Prior Authorizat ion Request active Script Copy/Prior Auth^Scrip t Copy/Prior Auth_ Not Available Not Available Not Available oxcarbazep ine 150 mg tablet active Not Available Not Available Not Available Colace 100 mg capsule 2018 active Medication ID: [id number] Dexter nd Name: Colace Sen d Method: E-Prescrib ed Subs Allowed: subs OK Medicat ionGeneric Name: Colace Not Available Not Available Not Available risperidon e 4 mg tablet active Not Available Not Available Not Available Claritin 10 mg tablet 1 tablet by mouth 2018 active Medication ID: [id number] Dur ation Value: 30 Brand Name: Claritin S end Method: E-Prescrib ed Subs Allowed: subs OK Special Instructio n: take 1 tablet by mouth once daily Medi cationGene ricName: Claritin Not Available Not Available Not Available bacitracin 500 unit/gram topical ointment active Not Available Not Available Not Available Eucerin topical cream 2018 active Medication ID: [id number] Dexter johnson Name: Eucerin Se nd Method: E-Prescrib ed Subs Allowed: subs OK Medicat ionGeneric Name: Eucerin Not Available Not Available Not Available oxcarbazep ine 300 mg tablet active Not Available Not Available Not Available terazosin 1 mg capsule active Not Available Not Available Not Available bacitracin zinc 500 unit/gram topical ointment 2018 active Medication ID: [id number] Dexter nd Name: bacitracin zinc Send Method: E-Prescrib ed Subs Allowed: subs OK Medicat ionGeneric Name: bacitracin zinc Not Available Not Available Not Available sulfametho xazole 800 mg-trimeth oprim 160 mg tablet active Not Available Not Available No t Available risperidon e 3 mg tablet active Not Available Not Available Not Available levothyrox ine 25 mcg tablet active Not Available Not Available Not Available risperidon e 2 mg tablet active Not Available Not Available Not Available amoxicilli n 875 mg tablet active Not Available Not Available Not Available amitriptyl ine 25 mg tablet active Not Available Not Available Not Available lorazepam 0.5 mg tablet active Not Available Not Available Not Available trazodone 100 mg tablet active Not Available Not Available Not Available lorazepam 2 mg tablet active Not Available Not Available Not Available diazepam 2 mg tablet 2018 active Medication ID: [id number] Dur ation Value: 28 Brand Name: diazepam [...] 2 mg tablet 2018 active Medication ID: [id number] Dexter johnson Name: guanfacine Send Method: E-Prescrib ed Subs Allowed: subs OK Medicat ionGeneric Name: guanfacine Not Available Not Available Not Available medroxypro gesterone 150 mg/mL intramuscu lar suspension active Not Available Not Available N ot Available Topamax 100 mg tablet 2018 active Medication ID: [id number] Dexter johnson Name: Topamax Se nd Method: E-Prescrib ed Subs Allowed: subs OK Medicat ionGeneric Name: Topamax Not Available Not Available Not Available Vitamin C 500 mg capsule,ex tended release 2018 active Medication ID: [id number] Dexter johnson Name: Vitamin C Send Method: E-Prescrib ed Subs Allowed: subs OK Medicat ionGeneric Name: Vitamin C Not Available Not Available Not Available TobraDex 0.3 %-0.1 % eye drops,susp ension 2019 active Medication ID: [id number] Pre scribed By Name: Hero Mauro PA-C [...] disintegra ting tablet 2018 active Medication ID: [id number] Dexter johnson Name: risperidon e Send Method: E-Prescrib ed [...] Available Artificial Tears 2018 active Medication ID: [id number] Dexter johnson Name: artificial tears Send Method: E-Prescrib ed Subs Allowed: subs OK Medicat ionGeneric Name: artificial tears Not Available Not Available Not Available Depo-Prove ra 2018 active Medication ID: [id number] Dexter nd Name: depo-prove ra Send Method: E-Prescrib ed Subs Allowed: subs OK Medicat ionGeneric Name: depo-prove ra Not Available Not Available Not Available Enulose 2018 active Medication ID: [id number] Dexter nd Name: enulose Se nd Method: E-Prescrib ed Subs Allowed: subs OK Medicat ionGeneric Name: enulose Not Available Not Available Not Available risperidon e 3 mg disintegra ting tablet 2018 active Medication ID: [id number] Dexter nd Name: risperidon e Send Method: [...] Eucerin Original lotion 2018 active Medication ID: [id number] Dexter nd Name: Eucerin Original S end Method: E-Prescrib ed Subs Allowed: subs OK Medicat ionGeneric Name: Eucerin Original Not Available Not Available Not Available guanfacine ER 2 mg tablet,ext ended release 24 hr 2018 active Medication ID: [id number] Dur ation Value: 28 Brand Name: guanfacine [...] tablet,ext ended release 2018 active Medication ID: [id number] Dexter nd Name: Myrbetriq Send Method: E-Prescrib ed [...] Diagnosis SNOMED-CT Code Diagnosis ICD10 Code Diagnosis IMO Codes Diagnosis Note [id number] CONNOR NARAYAN PA-C [facility] [address] [place] [address] 05/28/2025 14:54:45 05/28/2025 15:12:37 Impacted cerumen of bilateral ears [id number] 856707 H61.23 Health Concerns Section Related Observation LastModified by Organization Detai ls LastModified Time None Recorded Concern Status LastModified by Organization Details LastModified Time None Recorded Payers Encounter Date Sequence Insurance Name Policy Number Policy Moy Covered Member ID Moy Member ID Guarantor Name 05/28/2025 1 [place] B[place] [employer] Tres Davis [id number] Tres Davis 05/28/2025 2 [place] [facility] [id number] [facility] Notes Date Note Type Note Provider Name and Address Organization Details Recorded Time 05/28/2025 text/html ROS as noted in the HPI 34-year-old female presents for cerumen removal. Uses DermOtic for eczema of the ears. No concerns today. Accompanied by prison staff member. BOLIVAR ECHAVARRIA MD [address] [place] [address], [place], [address], [facility] - [facility] 05/28/2025 20:53:45 OBGyn Episode No OBEpisode recorded.
--- OUTSIDE RECORDS SUMMARY | 2025-05-30 09:09 | XMS_ITS | Clinical Summary ---
Author Organization [facility] Address [address] [place] [address] [place] [address] Phone Care Team Providers Care Gang Ripsaw Operator Name Role Phone Christiano Cronin MD Primary Care Provider [phone] Social History Tobacco Use Types Packs/Day Years Used Date Smoking Tobacco: Never Assessed Comments Unknown Sex and Gender Information Value Date Recorded Sex Assigned at Not on file Legal Sex Female 11:01 AM EST Gender Identity Not on file Sexual Orientation Not on file Plan of Treatment Not on file Medical Devices Not on file Insurance [facility] MEDICARE PART A & B [place] [facility] [place] & B Care Teams Gang Ripsaw Operator Relationship Specialty Start Date End Date Christiano Cronin MD [address] [place] [address] Drive [address] [place] [address] PCP - General Internal Medicine 09/14/17 Additional Source Comments The information contained in this document represents components of the legal health record. It is not the complete legal health record.[facility]
--- OUTSIDE RECORDS SUMMARY | 2025-05-30 09:09 | XMS_ITS | Data Portability ---
Author Organization [place] [facility] Address [address] [place] [address] Care Team Providers Care Almond Blancher Operator Name Role Phone DORETHASTEPHANIE Primary Care Provider Assessment Encounter Date Assessment Date Assessment LastModified [...] for reevaluation, or sooner with worsening symptoms. sam Not available 08/24/2024 11:34:53 11/09/2024 11/09/2024 34-year-old female presents for follow-up of myringitis. The infection has resolved. Bilateral TMs are intact with aerated middle ear spaces. She may resume DermOtic for eczema of the ears. She will follow-up in 3 months for cerumen removal. sam Not available 11/09/2024 09:49:23 02/22/2025 02/22/2025 34 year old female presents for cerumen removal. Cerumen impaction removed bilaterally. Bilateral TMs are intact. Follow up in 3 months for routine debridement. sam Not available 02/22/2025 13:07:00 05/28/2025 05/28/2025 34 year old female presents for cerumen removal. Cerumen impaction removed bilaterally. Bilateral TMs are intact. Follow up in 3 months for routine debridement. [email or web address] Not available 05/28/2025 15:00:12 Plan of Treatment [...] pension 2023 024 [facility], [address] [facility], [place], [address], 08/24/2024 11:34:05 Patient TargetsNo targets recorded. Patient [...] Recorded Time Impacted cerumen in left ear [id number] 10509 Active 2018 Impacted cerumen, left ear; Note: Date Diagnosed : 02/15/2019 11:37 AM (H61.22) Not Available [facility] 02:18:26 Impacted cerumen of bilateral ears [id number] 86134 Active 2018 Impacted cerumen, bilateral ; Note: Date Diagnosed : 9 2:01 PM (H61.23) CONNOR NARAYAN PA-C [address], [place], [address] , [place] - [facility] 5 15:00:12 Diffuse otitis externa 34553909 Active 2019 Diffuse otitis externa, right ear; Note: Date Diagnosed : 0 3:44 PM (H60.311) Not Available [facility] 4 02:18:24 Delayed milestone 205620161 Active 2021 Delayed milestone in childhood ; Note: Date Diagnosed : 05/14/2022 12:06 PM (R62.0) Not Available [facility] 4 02:18:51 Abnormal auditory perceptio n 03211410 Active 2021 Other abnormal auditory perceptio ns, bilateral ; Note: Date Diagnosed : 05/14/2022 12:06 PM (H93.293) Not Available [facility] 4 02:18:09 Foreign body in right ear 93174753568 835235 Active 2021 Foreign body in right ear, initial encounter ; Note: Date Diagnosed : 05/14/2022 1:15 PM (T16.1XXA ) Not Available [facility] 4 02:18:47 Acute eczematoi d otitis externa 05722078 Active 2021 Acute eczematoi d otitis externa, bilateral ; Note: Date Diagnosed : 05/14/2022 1:16 PM (H60.543) Not Available [facility] 4 02:18:59 Acute myringiti s 273684 Active 2023 CONNOR NARAYAN PA-C [address] [place],[address], [place], [address] , [place] - [facility] 4 11:32:58 Acute myringiti s 148568 Active 2023 CONNOR NARAYAN PA-C [address], [place], [address] , [place] - [facility] 4 11:33:03 Problem Notes None recorded. Procedures Surgical History Date Name Laterality Status Provider Name and Address Organization Details Recorded Time 5 Cerumen removal without microscope bilat completed CONNOR NARAYAN PA-C [address] [place] [address],[address], [address], [facility] - [facility] 05/28/2025 15:00:09 5 Cerumen removal without microscope bilat completed CONNOR NARAYAN PA-C [address] [place] [address],[address], [address], [facility] - [facility] 02/22/2025 13:06:46 4 Cerumen removal without microscope bilat completed CONNOR NARAYAN PA-C [address] [place] [address],[address], [address], [facility] - [facility] 08/24/2024 11:03:07 4 Cerumen removal without microscope bilat completed CONNOR NARAYAN PA-C [address] [place] [address],[address], [address], [facility] - [facility] 05/11/2024 11:38:47 Imaging Results None recorded. Procedure Notes None recorded. Medical Equipment None Reported. Allergies Allergen ID Allergen Name Allergen Category Reaction Reaction Severity Criticality Documentation Date Start Date Code Code System Note Provider Name and Address Organization Details Recorded Time 501259 Keflex medicatio n Not available Not available Not available 08/24/2024 77700 7 RxNorm CONNOR NARAYAN PA-C [address] [place] [address], [phone], [facility] - [facility] 4 11:19:31 027804 Macrobid medicatio n Not available Not available Not available 08/24/2024 35505 1 RxNorm CONNOR NARAYAN PA-C [address] [facility],[place] [address], [place], [address], [facility] - [facility] 4 11:19:38 Medications Name Sig Start Date Stop Date Status Note LastModified by Organization Details LastModified Time Prescripti on - Prior Authorizat ion Request active Script Copy/Prior Auth^Scrip t Copy/Prior Auth_ Not Available Not Available Not Available oxcarbazep ine 150 mg tablet active Not Available Not Available Not Available Colace 100 mg capsule 2018 active Medication ID: [id number] Dexter johnson Name: Colace Sen d Method: E-Prescrib ed Subs Allowed: subs OK Medicat ionGeneric Name: Colace Not Available Not Available Not Available risperidon e 4 mg tablet active Not Available Not Available Not Available Claritin 10 mg tablet 1 tablet by mouth 2018 active Medication ID: [id number] Dur ation Value: 30 Brand Name: Claritin S end Method: E-Prescrib ed Subs Allowed: subs OK Special Instructio n: take 1 tablet by mouth once daily Medi cationGene ricName: Claritin Not Available Not Available Not Available bacitracin 500 unit/gram topical ointment active Not Available Not Available Not Available Eucerin topical cream 2018 active Medication ID: [id number] Dexter nd Name: Eucerin Se nd Method: E-Prescrib ed Subs Allowed: subs OK Medicat ionGeneric Name: Eucerin Not Available Not Available Not Available oxcarbazep ine 300 mg tablet active Not Available Not Available Not Available terazosin 1 mg capsule active Not Available Not Available Not Available bacitracin zinc 500 unit/gram topical ointment 2018 active Medication ID: [id number] Dexter nd Name: bacitracin zinc Send Method: [...] 2 mg tablet 2018 active Medication ID: [id number] Dur ation Value: 28 Brand Name: diazepam [...] 2 mg tablet 2018 active Medication ID: [id number] Dexter nd Name: guanfacine Send Method: E-Prescrib ed Subs Allowed: subs OK Medicat ionGeneric Name: guanfacine Not Available Not Available Not Available medroxypro gesterone 150 mg/mL intramuscu lar suspension active Not Available Not Available N ot Available Topamax 100 mg tablet 2018 active Medication ID: [id number] Dexter johnson Name: Topamax Se nd Method: E-Prescrib ed Subs Allowed: subs OK Medicat ionGeneric Name: Topamax Not Available Not Available Not Available Vitamin C 500 mg capsule,ex tended release 2018 active Medication ID: [id number] Dexter johnson Name: Vitamin C Send Method: E-Prescrib ed Subs Allowed: subs OK Medicat ionGeneric Name: Vitamin C Not Available Not Available Not Available TobraDex 0.3 %-0.1 % eye drops,susp ension 2019 active Medication ID: [id number] Pre scribed By Name: Hero Mauro PA-C [...] disintegra ting tablet 2018 active Medication ID: [id number] Dexter johnson Name: risperidon e Send Method: [...] Available Artificial Tears 2018 active Medication ID: [id number] Dexter nd Name: artificial tears Send Method: E-Prescrib ed Subs Allowed: subs OK Medicat ionGeneric Name: artificial tears Not Available Not Available Not Available Depo-Prove ra 2018 active Medication ID: [id number] Dexter nd Name: depo-prove ra Send Method: E-Prescrib ed Subs Allowed: subs OK Medicat ionGeneric Name: depo-prove ra Not Available Not Available Not Available Enulose 2018 active Medication ID: [id number] Dexter nd Name: enulose Se nd Method: E-Prescrib ed Subs Allowed: subs OK Medicat ionGeneric Name: enulose Not Available Not Available Not Available risperidon e 3 mg disintegra ting tablet 2018 active Medication ID: [id number] Dexter nd Name: risperidon e Send Method: [...] Eucerin Original lotion 2018 active Medication ID: [id number] Dexter nd Name: Eucerin Original S end Method: E-Prescrib ed Subs Allowed: subs OK Medicat ionGeneric Name: Eucerin Original Not Available Not Available Not Available guanfacine ER 2 mg tablet,ext ended release 24 hr 2018 active Medication ID: [id number] Dur ation Value: 28 Brand Name: guanfacine [...] tablet,ext ended release 2018 active Medication ID: [id number] Dexter nd Name: Myrbetriq Send Method: E-Prescrib [...] ICD10 Code Diagnosis IMO Codes Diagnosis Note [id number] CONNOR NARAYAN PA-C [facility] [address] [place] [address] 05/11/2024 11:30:34 05/11/2024 11:52:41 Impacted cerumen of bilateral ears [id number] 538561 H61.23 [id number] CONNOR NARAYAN PA-C [facility] [address] [place] [address] 08/24/2024 10:57:54 08/24/2024 11:26:55 Impacted cerumen of bilateral ears 3151702918 189457 H61.23 Acute myringitis 211562 H73.003 [id number] CONNOR NARAYAN PA-C [facility] [address] [place] [address] 11/09/2024 09:16:48 11/09/2024 09:44:43 Acute myringitis 956993 H73.003 [id number] CONNOR NARAYAN PA-C [facility] [address] [place] [address] 02/22/2025 13:00:10 02/22/2025 13:21:56 Impacted cerumen of bilateral ears 0731520216 769956 H61.23 [id number] CONNOR NARAYAN PA-C [facility] [address] [place] [address] 05/28/2025 14:54:45 05/28/2025 15:12:37 Impacted cerumen of bilateral ears 5511267547 926671 H61.23 Health Concerns Section Related Observation LastModified by Organization Detai ls LastModified Time None Recorded Concern Status LastModified by Organization Details LastModified Time None Recorded Advance Directives Directive None Recorded Payers Insurance Date Sequence Insurance Name Policy Number Policy Moy Covered Member ID Omy Member ID Guarantor Name 05/28/2025 1 [place] [employer] Tres Davis [id number] Tres Davis 05/28/2025 2 [place] [facility] Tres [facility] [id number] Tres Davis Notes Date Note Type Note Provider Name and Address Organization Details Recorded Time 05/11/2024 text/html ROS as noted in the [facility] 33-year-old female presents for cerumen removal. Uses DermOtic for eczema of the ears. No concerns today. Accompanied by long term staff member. XIAO RICH MD [address] [place] [address], [address], [place] - [facility] 05/12/2024 09:00:43 08/24/2024 text/html ROS as noted in the [facility] 34-year-old female presents for cerumen removal. Uses DermOtic for eczema of the ears. No concerns today. Accompanied by long term staff member. XIAO RICH MD [address] [place] [address], [address], [place] [facility] 08/24/2024 16:30:02 11/09/2024 text/html ROS as noted in the [facility] 34-year-old female presents for follow up of ear infection. Used Ciprodex. No concerns today. Uses DermOtic for eczema of the ears. Accompanied by long term staff member. IXAO RICH MD [address] [place] [address], [address], [facility] - [facility] 11/09/2024 16:29:50 02/22/2025 text/html ROS as noted in the [facility] 34-year-old female presents for cerumen removal. Uses DermOtic for eczema of the ears. No concerns today. Accompanied by long term staff member. XIAO RICH MD [address] [place] [address],[address], [address], [place] [facility] 02/22/2025 17:23:54 05/28/2025 text/html ROS as noted in the [facility] 34-year-old female presents for cerumen removal. Uses DermOtic for eczema of the ears. No concerns today. Accompanied by long term staff member. BOLIVAR ECHAVARRIA MD [address] [place] [address], [place], [address], [facility] - [facility] 05/28/2025 20:53:45 OBGyn Episode No OBEpisode recorded.
--- OUTSIDE RECORDS SUMMARY | 2025-05-30 09:09 | XMS_ITS | Clinical Summary ---
Author Organization [facility] [address] [place] [address] [place] [phone] Phone Care Team Providers Care Icu Manager Name Role Phone Christiano Cronin MD Primary Care Provider Allergies Active Allergy Reactions Criticality Noted Date [...] AM EDT Clinical Support Obstetrics and Gynecology [address] [address] Surveillance for Depo-Provera contraception (Primary Dx) from Last 3 Months Immunizations Immunization Administration Dates Next Due Influenza Quadrivalent, 0.5m [...] AM EDT Clinical Support Obstetrics and Gynecology [address] [address] Health Maintenance Due Date Last Done Comments Hepatitis B Vaccines (1 of 3 - 19+ 3-dose series) 2011 Cervical Cancer Screening: Pap Smear 2013 HPV Vaccines (1 - 3-dose SCDM series) 2019 HIV Screening 08/08/2022 Hepatitis C Screening 08/08/2022 Medicare Annual Wellness Visit 08/08/2022 Social Influencers of Health Screening 08/08/2022 Depression Screening 08/30/2024 COVID-19 Vaccine (3 - 2024- season) 2025 06/05/2021, 09/24/2020 Influenza Vaccine (#1) 2025 3, 10/07/2022, 06/05/2021, Additional history exists DTaP,Tdap,and Td Vaccines (2 - Td or Tdap) 10/09/2029 10/09/2019 RSV Immunization Adult Patients (1 - 1-dose 75+ series) 2067 HIB Vaccines Aged Out No longer eligi [...] Insurance MEDICARE MEDICAID - [place] Care Teams Icu Manager Relationship Specialty Start Date End Date Christiano Cronin MD [address] [place] [address] Dr [address] [facility] [place] [address] PCP - General Internal Medicine 09/17/21
--- OUTSIDE RECORDS SUMMARY | 2025-05-30 09:09 | XMS_ITS | Encounter Summary ---
Author Organization [facility] Address [address] [facility] [address] [place] [address] Phone Care Team Providers Care Residence Leasing Agent Name Role Phone Christiano Cronin MD Primary Care Provider Reason for Referral * Consultation - Canceled Specialty Diagnoses / Procedures Referred By Contbea cotto Referred To [facility], Provider Not In, PhD [id number] [place] [phone] Phone: tel: Referral ID Status Reason Start Date Expiration Date V isits Requested Visits Authorized [id number] Canceled 09/14/2017 09/14/2018 1 1 Encounter Details Date Type Department Care Team (Late st Contact Info) Description 09/14/2017 Transcribe Orders [facility] [address] [place] [address] Christiano Cronin MD [address] [place] [address] Drive [address] [place] [phone] Social History Tobacco Use Types Packs/Day Years [...] Associated Diagnoses Order Schedule Ambulatory referral [facility] Outpatient Referral Routine Ordered: 09/14/2017 documented as of this encounter Visit Diagnoses Not on filedocumented in this encounter Care Teams Residence Leasing Agent Relationship Specialty Start Date End Date Christiano Cronin MD [address] [place] [address] PCP - General Internal Medicine 09/14/17 documented as of this encounter Additional Source Comments The information contained in this document represents components of the legal health record. It is not the complete legal health record.[facility]
== END 2025-05-30 09:15 | disposition home or self-care (01) ==
LOC: HO.HMCH 08:38
PROVIDERS: PCP Internal Medicine
DX: R25.9 Unspecified abnormal involuntary movements (principal); G93.89 Other specified disorders of brain

== ENCOUNTER → 2025-05-30 08:37 | Outpatient (BNVA) | payer MEDICARE, MEDICAID, SELFPAY | PROVIDERS: PCP Internal Medicine | DX: F84.0 Autistic disorder (principal); E03.9 Hypothyroidism, unspecified; R25.9 Unspecified abnormal involuntary movements; G93.89 Other specified disorders of brain | CPT/HCPCS: 99212 ==

== ENCOUNTER 2025-06-05 11:01 | Outpatient (AMB) | payer MEDICARE, MEDICAID, SELFPAY ==
--- NOTE | 2025-06-05 10:58 | A.OFFVIS_ITS ---
Intake Visit Reasons: 1 yr follow up/ PVR Intake Note: Patient is present for 1y f/u incontinence NO UA today Urology Medication:terazosin,mirabegron Antibiotic Allergy:none Blood Thinner:none PVR:209 mls Data Integration Analyst Required: No Accompanied by: Self / Same As Patient Allergies cephalexin (From KEFLEX) Allergy (Unknown, Verified 06/05/25 11:00) RASH nitrofurantoin (From MACROBID) Allergy (Unknown, Verified 06/05/25 11:00) RASH HPI Comments Details: Tres is a pleasant female. Accompanied by outpatient case manager. snf. Autistic with minimal verbal responses. She is seen for the following urologic conditions - urinary incontinence - urinary urgency frequency Yearly review Accompanied by case workers Will continue with Myrbetriq 25 and terazosin 1 mg Does initiate toileting of own accord PVR today 200 cc Minimal accident Urinary urgency and frequency Background with fecal incontinence as well Prior evaluation for InterStim stage I but concerns regarding compliance Had been on Myrbetriq 50 Displaying signs of urinary hesitancy Reduce Myrbetriq to 25 mg daily Add 1 mg terazosin May have had too much MiraLax Make sure encourage fluids They would like diapers changed to large 12 month follow-up [facility] Medical History Abnormal involuntary movements Urinary hesitancy Urinary urgency Impacted cerumen of both ears Vitamin D deficiency Fungal dermatitis Leg swelling Frequency of micturition Mental and behavioral problem Autism Leukopenia Hypothyroid Constipation Surgical History No pertinent past surgical history Family History Father No problems noted. Mother Drug addiction Brain mass Breast cancer Maternal Grandmother Breast cancer Maternal Uncle Colon cancer Other Mental health disorder Substance use disorder Social History Housing: Other (Senior Care) Alcohol intake: never Patient Tobacco Use Status: Never used Tobacco Tobacco use type: Cigarette e-Cigarette/Vaping Use: Never Used Second Hand Smoke Exposure: No service: No Current occupational status: disabled Cognitive needs: Yes Hearing needs: Yes Vision needs: No Review of Systems Const Denies chills and Denies fever(s) Card Reports no additional complaints and Denies syncope Resp Denies cough GI Denies abdominal pain and Denies heartburn Reports as per HPI and Denies change in libido Neuro Denies syncope Psych Denies change in libido Endo Denies change in libido Physical Exam Const General: cooperative, healthy appearing, comfortable and no acute distress Orientation/consciousness: patient oriented x3 HEENT Face and sinus: Yes normal facial exam Mouth: moist mucous membranes Neck Neck: Yes normal visual inspection, Yes full ROM and Yes trachea midline Chest Chest palpation & inspection: normal inspection of the chest Resp Effort & Inspection: normal respiratory effort, able to speak in complete sentences and no respiratory distress GI Inspection: Yes normal to inspection Back/Spine/Pelvis Cervical Spine: normal cervical lordosis Thoracic/Lumbar Spine: thoracic and lumbar spine normal to inspection Skin General skin exam: no rashes or lesions noted Neuro General: patient oriented x3, gait normal, tone normal and moves all extremities Extrem General: Yes normal to inspection and Yes capillary refill normal Assessment & Plan Assessment & Plan (1) Urinary incontinence: Code(s): R32 - Unspecified urinary incontinence Category: Medical Qualifiers: Urinary Incontinence type: unspecified incontinence Qualified Code(s): R32 - Unspecified urinary incontinence Plan Continue medication 12 month follow-up Patient Instructions: This note is constructed using voice recognition software. While every effort has been made to ensure accuracy hris administrator errors may have been included. Imaging studies, laboratory and physical exam results were discussed and reviewed in detail. No major barriers to patient understanding were identified. An opportunity to ask questions regarding the treatment plan was provided. All questions were answered. The patient expressed understanding and agreement with the above treatment plan. The patient is aware they should contact our office by phone for worsening of their current condition or the appearance of new urologic symptoms. Compliance is encouraged with any medications and followup testing that is ordered. It is a privilege to participate in the urologic care of your patient. If you have any questions or concerns regarding treatment for the above conditions, or other urologic issues, please do not hesitate to contact me. The office telephone contact is [phone]. Sincerely, Dr Leonel Cunningham MD, [facility] - Urology Compassionate Specialist Care for the Genitourinary System Coding Level of Care Code Est Pt Level 4 (57301) Complex EM visit Add On G2211 Diagnoses Urinary incontinence, unspecified type R32 Urinary Incontinence type: unspecified incontinence
--- OUTSIDE RECORDS SUMMARY | 2025-06-05 13:41 | XMS_ITS | Clinical Summary ---
Author Organization [facility] [address] [place] [address] [place] [phone] Phone Care Team Providers Care Technical Communicator Name Role Phone Christiano Cronin MD Primary Care Provider [phone] Allergies Active Allergy Reactions Criticality Noted Date [...] AM EDT Clinical Support Obstetrics and Gynecology [address] [address] Surveillance for Depo-Provera contraception (Primary Dx) from [...] AM EDT Clinical Support Obstetrics and Gynecology [address] [address] Health Maintenance Due Date Last Done Comments [...] Insurance MEDICARE [place]ICAID - [place] Care Teams Technical Communicator Relationship Specialty Start Date End Date Christiano Cronin MD [address] [place] [address] Dr [address] [facility] [place] [address] PCP - General Internal Medicine 09/17/21
--- OUTSIDE RECORDS SUMMARY | 2025-06-05 13:41 | XMS_ITS | Clinical Summary ---
Author Organization [facility] Address [address] [place] [address] [place] [phone] Phone Care Team Providers Care Can Doffer Name Role Phone Christiano Cronin MD Primary Care Provider [phone] Social History Tobacco Use Types Packs/Day Years Used Date Smoking Tobacco: Never Assessed Comments Unknown Sex and Gender Information Value Date Recorded Sex Assigned at Not on file Legal Sex Female 11:01 AM EST Gender Identity Not on file Sexual Orientation Not on file Plan of Treatment Not on file Medical Devices Not on file Insurance [facility] MEDICARE PART A & [place] & B [facility] MEDIC[facility] PART A & [place] A & B Care Teams Can Doffer Relationship Specialty Start Date End Date Christiano Cronin MD [address] [place] [address] Drive [address] [place] [address] PCP - General Internal Medicine 09/14/17 Additional Source Comments The information contained in this document represents components of the legal health record. It is not the complete legal health record.[facility]
--- OUTSIDE RECORDS SUMMARY | 2025-06-05 13:41 | XMS_ITS | Encounter Summary ---
Author Organization [facility] Address [address] [place] [address] Phone Care Team Providers Care Bulb Sorter Name Role Phone Christiano Cronin MD Primary Care Provider [phone] Reason for Referral * Consultation - Canceled Specialty Diagnoses / Procedures Referred By Contbea cotto Referred To [facility], Provider Not In, PhD [id number] [place] [phone] Phone: tel: Referral ID Status Reason Start Date Expiration Date V isits Requested Visits Authorized [id number] Canceled 09/14/2017 09/14/2018 1 1 Encounter Details Date Type Department Care Team (Late st Contact Info) Description 09/14/2017 Transcribe Orders [facility] [address] [place] [id number] Christiano Cronin MD [address] [place] [address] Drive [address] [place] [address] Social History Tobacco Use Types Packs/Day Years [...] Associated Diagnoses Order Schedule Ambulatory referral to [facility] Outpatient Referral Routine Ordered: 09/14/2017 documented as of this encounter Visit Diagnoses Not on filedocumented in this encounter Care Teams Bulb Sorter Relationship Specialty Start Date End Date Christiano Cronin MD [address] [place] [address] PCP - General Internal Medicine 09/14/17 documented as of this encounter Additional Source Comments The information contained in this document represents components of the legal health record. It is not the complete legal health record.[facility]
== END 2025-06-05 11:20 | disposition home or self-care (01) ==
LOC: HO.HUSH 11:02
PROVIDERS: PCP Internal Medicine; Visit Provider Urology
DX: R32 Unspecified urinary incontinence (principal)
CPT/HCPCS: 99214; G2211

== ENCOUNTER → 2025-06-05 11:01 | Outpatient (BNVA) | payer MEDICARE, MEDICAID, SELFPAY | PROVIDERS: PCP Internal Medicine; Visit Provider Urology | DX: R32 Unspecified urinary incontinence (principal) | CPT/HCPCS: 99212 ==

== ENCOUNTER 2025-06-07 10:06 | Outpatient (REF) | payer MEDICARE, MEDICAID, SELFPAY ==
--- NOTE | 2025-06-07 11:30 | EEG_ITS ---
Reason for Exam: Abnormal involuntary movements R25.9 Roomed Performed:?402 History: autism, hypothyroid, mental and behavioral problem - Patient presented to [facility] ED on 05/04/25 for an episode of spasms and head shaking. Patient remained conscious and able to communicate. Medication: acetaminophen, amitriptyline, bacitracin zinc, benztropine, vit D3, divalproex, guanfacine, levothyroxine, lorazepam, medroxyprogesterone, mirabegron, risperidone, terazosin, trazodone Technical description Photic stimulation: omitted Hyperventilation:?omitted Behavioral state: pt yelling, talking and moving during tracing State of Consciousness: awake Skull defect: none Sedation: none Handedness: unknown Duration of study:?20 min 12 sec Description: This is a 16 channel EEG with an EKG lead. Patient is reported awake during the tracing. Background EEG rhythm is medium amplitude mixed theta beta with no obvious asymmetry or paroxysmal tendency. Frequent lead and muscle artifacts are noted. Cardiac lead does not reveal any significant abnormality. Photic stimulation and hyperventilation were not performed. No obvious focal activity or paroxysmal tendency noted. Impression: This is a limited EEG because of constant motion artifacts, it revealed mild generalized slowing with no epileptic tendency MTDD
== END 2025-06-07 10:07 | disposition home or self-care (01) ==
LOC: HO.NEURO 10:06
PROVIDERS: PCP Internal Medicine; Referring Provider Psychiatry & Neurology Neurology; Visit Provider Internal Medicine
DX: R25.9 Unspecified abnormal involuntary movements (principal)
CPT/HCPCS: 95816

== ENCOUNTER → 2025-06-07 11:30 | Outpatient (BNV) | payer MEDICARE, MEDICAID, SELFPAY | PROVIDERS: PCP Internal Medicine; Referring Provider Psychiatry & Neurology Neurology; Visit Provider Psychiatry & Neurology Neurology | DX: R25.0 Abnormal head movements (principal) | CPT/HCPCS: 95816 ==

== ENCOUNTER 2025-08-01 13:13 | Outpatient (AMB) | payer MEDICARE, MEDICAID, SELFPAY ==
[2025-08-01 13:26] VITALS: BP 118/76; PULSE 104; O2SAT 98; BMI 32.0
--- NOTE | 2025-08-01 13:26 | MHC.PC.OV ---
Vital Signs 08/01/25 13:26 Height 5 ft 1 in Weight 169 lb 8.568 oz BMI 32.0 BP 118/76 Blood Pressure Location Lt brachial Position Sitting Pulse 104 H Pulse Source Pulse Oximeter Pulse Oximetry (%) 98 Oxygen Delivery Method Room Air Intake Visit Reasons: Automatism Allergies cephalexin (From KEFLEX) Allergy (Unknown, Verified 08/01/25 13:26) RASH nitrofurantoin (From MACROBID) Allergy (Unknown, Verified 08/01/25 13:26) RASH Medication List - Last Reconciled 08/01/25 by Christiano Cronin MD acetaminophen ER (8 Hour Pain Reliever) 650 mg PO Q8H PRN amitriptyline 25 mg PO BEDTIME bacitracin zinc (Antibiotic (bacitracin zinc)) 1 appl topically use topically every 12 hours as needed for ear, lacerations, cuts, scrapes; benztropine 1 mg PO BID cholecalciferol (vitamin D3) 50 mcg PO DAILY 90 days compr.stocking,thigh,short,med As directed dextromethorphan polistirex ER (12-Hour Cough Relief) 10 mL PO Q12H PRN diaper,brief,adult,disposable As directed divalproex ER 250 mg PO BID fluocinolone acetonide oil 0.01% (DermOtic Oil) 2 drps otic (ears) ONCE PRN [GAIT BELT Large/xtra large As directed] guanfacine ER 3 mg PO DAILY lanolin othlflj-xt-s.pet-ceres (Eucerin topical cream) 1 appl topical DAILY PRN levothyroxine 25 mcg PO QAM lorazepam (Ativan) 1 mg PO BID PRN medroxyprogesterone (Depo-Provera) 150 mg IM [id number] mirabegron ER 25 mg PO DAILY 90 days polyethylene glycol 3350 (Miralax) 17 grams PO DAILY 90 days [pull ups medium As directed] risperidone 2 mg PO BID terazosin 1 mg PO BEDTIME 90 days trazodone 100 mg PO BEDTIME Tobacco use date assessed: 05/30/25 Dental Screening Dental Screen Date: 09/18/24 HPI Automatism HPI Details this has been normal HPI Comments History of Present Illness Details History of Present Illness The patient is a 35 year old individual presenting for a follow-up visit for chronic condition management, including abnormal involuntary movements. The patient has a history of autism, osteophyte, hypothyroidism, and obesity. Regarding the abnormal involuntary movements, the patient saw neurology in April and their Depakote was increased to 250 mg twice a day. An EEG was performed which revealed mild generalized slowing with no epileptiform activity and was negative for seizures. The patient is reportedly not experiencing any abnormal movements at this time. The patient was seen in the emergency room on May 04 and was treated with antibiotics for a urinary tract infection. The patient follows with urology and takes terazosin and Mirabegron. The last blood work was done on April 03 and was noted to be fine. The patient is sometimes unstable on their feet but is able to course correct and has not fallen in a while. The patient does not use an assistive device for walking but does use compression stockings. Health Maintenance - Influenza vaccination is up to date. - Diet and exercise were encouraged. - Follow-up with psychiatry is recommended. - Follow-up with neurology is recommended. - The patient follows with urology. - The patient is scheduled to return for the next physical examination. Social History - The patient is a 35 year old individual with autism. - The patient attends a program. - Functional Status: The patient has gait instability at times but is able to walk without an assistive device. - Diet: A discussion about diet and exercise was had. Results - EEG: Results revealed mild generalized slowing with no epileptiform activity and were negative for seizure. - Labs: Blood work from April 03 was noted to be fine. [facility] Medical History Abnormal involuntary movements Urinary hesitancy Urinary urgency Impacted cerumen of both ears Vitamin D deficiency Fungal dermatitis Leg swelling Frequency of micturition Mental and behavioral problem Autism Leukopenia Hypothyroid Constipation Surgical History No pertinent past surgical history Family History Father No problems noted. Mother Drug addiction Brain mass Breast cancer Maternal Grandmother Breast cancer Maternal Uncle Colon cancer Other Mental health disorder Substance use disorder Social History Housing: Other (Skilled Nursing) Alcohol intake: never Patient Tobacco Use Status: Never used Tobacco Tobacco use type: Cigarette e-Cigarette/Vaping Use: Never Used Second Hand Smoke Exposure: No service: No Current occupational status: disabled Cognitive needs: Yes Hearing needs: Yes Vision needs: No Questionnaire Thrive Questionnaire Date Thrive assessed: 04/12/25 I am a: Parent/Caregiver What is your living situation today?: I choose not to answer this question Within the past 12 months, did the food you bought not last and you didn't have the money to get more?: I choose not to answer this question Within the past 12 months, did you worry whether your food would run out before you got money to buy more?: I choose not to answer this question Do you have trouble paying for medicines?: I choose not to answer this question Do you have trouble getting transportation to medical appointments?: I choose not to answer this question Do you have trouble paying your heating and electricity bill?: I choose not to answer this question Do you have trouble taking care of your child, family member or friend?: I choose not to answer this question Do you have trouble with day-to-day activities such as bathing, preparing meals, shopping, managing finances, etc.?: I choose not to answer this question Are you currently unemployed and looking for a job?: I choose not to answer this question Are you interested in more education?: I choose not to answer this question Please select the resources that you would like help with: None Currently or been in a relationship where the following occur: I choose not to answer THRIVE Score: 0 COLBY-7 AMB Questionnaire COLBY-7 Date COLBY - 7 assessed: 09/18/24 Source: Developed by Drs. Isauro Amin, Ana Chun, Erickson Fried and colleagues, with an educational [place] from [employer]. Review of Systems Narrative Review of Systems - Neurological: Reports occasional gait instability. - Denies recent abnormal involuntary movements. Physical exam (Primary Care) Vital Signs: Last Vital Signs Pulse 104 H 08/01/25 13:26 BP 118/76 08/01/25 13:26 Pulse Ox 98 08/01/25 13:26 Oxygen Delivery Method Room Air 08/01/25 13:26 BMI result Body Mass Index 32.0 Tobacco/Smoking Status: Tobacco use Status Tobacco use date assessed 05/30/25 08/01/25 13:31 Patient Tobacco Use Status Never used Tobacco 08/01/25 13:31 Tobacco use type Cigarette 08/01/25 13:31 e-Cigarette/Vaping Use Never Used 08/01/25 13:31 Thrive Assessment: Date of Thrive Assessment Date Thrive assessed 04/12/25 08/01/25 13:31 Currently or been in a relationship where the following occur: I choose not to answer Narrative Physical Exam Const General: alert; No acute distress Eyes Conjunctivae: conjunctivae normal Resp Auscultation: clear to auscultation bilaterally Cardio Rate: regular rate Rhythm: regular rhythm GI Inspection: Yes normal to inspection Extrem General: Yes normal to inspection and No edema Coding Level of Care Code Est Pt Level 4 (26165) Diagnoses Acquired hypothyroidism E03.9 Hypothyroidism type: acquired Class 1 obesity due to excess calories without serious comorbidity with body mass index (BMI) of 30.0 to 30.9 in adult E66.09; Z68.30 Body mass index: BMI 30.0-30.9 Obesity classification: adult class 1 (BMI 30 - 34.9) Obesity type: due to excess calories Serious obesity comorbidity presence: without serious comorbidity Abnormal involuntary movements R25.9 Autism F84.0 Assessment & Plan Assessment & Plan (1) Hypothyroid: Code(s): E03.9 - Hypothyroidism, unspecified Category: Medical Qualifiers: Hypothyroidism type: acquired Qualified Code(s): E03.9 - Hypothyroidism, unspecified Plan: Continue with thyroid medication and will continue to monitor (2) Obesity: Code(s): E66.9 - Obesity, unspecified Category: Medical Qualifiers: Body mass index: BMI 30.0-30.9 Obesity classification: adult class 1 (BMI 30 - 34.9) Obesity type: due to excess calories Serious obesity comorbidity presence: without serious comorbidity Qualified Code(s): E66.09 - Other obesity due to excess calories; Z68.30 - Body mass index [BMI] 30.0-30.9, adult Plan: Diet and exercise (3) Abnormal involuntary movements: Comment: ? automatisms, ? tardive dystonia ? seizures Code(s): R25.9 - Unspecified abnormal involuntary movements Category: Medical Plan: Patient has seen Neurology and had an EEG done showing mild slowing but no epileptiform activity (4) Autism: Code(s): F84.0 - Autistic disorder Category: Medical Plan: Continue to follow-up with psychiatry Plan Plan Patient was informed and verbally consented to the use of an ambient scribe for clinic note documentation during this visit. 1. Abnormal Involuntary Movements The patient's abnormal involuntary movements are currently resolved. This is subsequent to an increase in the Depakote dosage to 250 mg twice daily by neurology. An EEG was negative for seizures but did show mild generalized slowing. The plan is to continue Depakote and to arrange a follow-up appointment with neurology. 2. Hypothyroidism The patient will continue with the current thyroid medication and will be monitored. 3. Obesity Counseling on diet and exercise was provided. 4. Gait Instability A new prescription for compression stockings will be sent. A new gait belt, size large/extra-large, will be ordered for the patient. Discussion Notes I discussed with the patient's caregiver that the abnormal involuntary movements have resolved, which is reassuring. We reviewed the EEG results, which were negative for seizure activity but did show mild generalized slowing. I advised them to schedule a follow-up appointment with the neurology department. I agreed to provide a new prescription for compression stockings and to order a new large/extra-large gait belt. I informed them that the patient can return for the next scheduled physical exam and to contact us if any issues arise in the interim. Patient Instructions - Continue to take Depakote 250 mg twice a day as prescribed by neurology. - Continue taking your thyroid medication. - Continue taking your urology medications, terazosin and Mirabegron. - We will provide a prescription for new compression stockings and order a new gait belt for you. - Please schedule a follow-up appointment with the neurology department. - Continue following up with your psychiatry provider. - Follow a healthy diet and try to exercise regularly. - Return for your next physical exam as scheduled. Medications: New [GAIT BELT Large/xtra large] As directed 1 ea 0RF R26.81 - Unsteadiness on feet Refilled compr.stocking,thigh,short,med As directed 3 ea 0RF M79.89 - Other specified soft tissue disorders
--- OUTSIDE RECORDS SUMMARY | 2025-08-01 15:45 | XMS_ITS | Encounter Summary ---
Author Organization [facility] Address [address] [place] [address] Phone Care Team Providers Care Certified Neurodiagnostic Technologist Name Role Phone Christiano Cronin MD Primary Care Provider [phone] Reason for Referral * Consultation - Canceled Specialty Diagnoses / Procedures Referred By Contbea cotto Referred To Contact [facility], Provider Not In, PhD [id number] [place] [phone] Phone: tel: Referral ID Status Reason Start Date Expiration Date V isits Requested Visits Authorized [id number] Canceled 09/14/2017 09/14/2018 1 1 Encounter Details Date Type Department Care Team (Late st Contact Info) Description 09/14/2017 Transcribe Orders [facility] [address] [place] [phone] Christiano Cronin MD [address] [place] [address] Drive [address] [place] [phone] Social History Tobacco Use Types Packs/Day Years [...] Associated Diagnoses Order Schedule Ambulatory referral to [facility] Outpatient Referral Routine Ordered: 09/14/2017 documented as of this encounter Visit Diagnoses Not on filedocumented in this encounter Care Teams Certified Neurodiagnostic Technologist Relationship Specialty Start Date End Date Christiano Cronin MD [address] [place] [address] PCP - General Internal Medicine 09/14/17 documented as of this encounter Additional Source Comments The information contained in this document represents components of the legal health record. It is not the complete legal health record.[facility]
--- OUTSIDE RECORDS SUMMARY | 2025-08-01 15:45 | XMS_ITS | Clinical Summary ---
Author Organization [facility] [address] [place] [address] [place] [phone] Phone Care Team Providers Care Insurance Claims Analyst Name Role Phone Christiano Cronin MD Primary Care Provider [phone] Allergies Active Allergy Reactions Criticality Noted Date Comments Cephalexin 12/29/2018 Nitrofurantoin Monohyd/M-Cryst 12/29 Medications ascorbic acid (VITAMIN C) 500 mg tablet Take 500 mg by mouth 2 times daily. Active bacitracin (bacitracin zinc) 500 unit/gram Apply topically. Active ARTIFICIAL TEARS,HYPROMELL OSE, OPHT apply to the eye. Active multivitamin with minerals (MULTIPLE VITAMIN-MINERAL S ORAL) Take by mouth. Active polyethylene glycol [...] mouth every 6 hours as needed. Active mirabegron (MYRBETRIQ) 50 mg tablet extended [...] 100 mg by mouth at bedtime. Active medroxyPROGESTE Spike 150 mg/mL injection Inject 1 mL (150 mg total) into the shoulder, thigh, or buttocks 1 (one) time for 1 dose. 1 mL 06/29/2025 Active Active Problems Problem Noted Date Diagnosed Date Attention deficit hyperactivity disorder (ADHD) 06/30/2024 Dysmenorrhea 06/30/2024 Urinary frequency 05/13/2021 Overview (06/30/2024): Last Assessment & Plan: I recommended we send a culture as history is not clear and we can treat prn. Development delay 01/31/2019 Hypothyroid 01/31/2019 Encounters Date Type Department Care Team Description 06/14/2025 11:00 AM EDT Clinical Support Obstetrics and Gynecology - [facility] [address] [place] [address] Encounter for surveillance of injectable contraceptive (Primary Dx) from Last 3 Months Immunizations [...] Sign Reading Time Taken Comments Blood Pressure 120/92 06/14/2025 11:15 AM EDT Pulse 98 06/14/2025 11:15 AM EDT Temperature - - Respiratory Rate - - Oxygen Saturation - - Inhaled Oxygen Concentration - - Weight 73 kg (161 lb) 11/22/2024 10:13 AM EDT Height 157.5 cm (5' 2 ) 11/22/2024 10:13 AM EDT Body Mass Index 29.45 11/22/2024 10:13 AM EDT Plan of Treatment Upcoming Encounters Date Type Department Care Team (Late st Contact Info) Description 09/04/2025 11:00 AM EST Clinical Support [facility] - [facility] [address] [place] [phone] Health Maintenance Due Date Last Done Comments [...] Insurance MEDICARE MEDICAID - [place] Care Teams Insurance Claims Analyst Relationship Specialty Start Date End Date Christiano Cronin MD [address] [place] [address] [address] [facility] [place] [address] PCP - General Internal Medicine 09/17/21
--- OUTSIDE RECORDS SUMMARY | 2025-08-01 15:45 | XMS_ITS | Continuity of Care Document ---
Author Organization [place] - [facility], [facility] Address [address] [place] [address] Care Team Providers Care Vending Machine Assembler Name Role Phone STEPHANIE COYNE Primary Care Provider [phone] Assessment Encounter Date Assessment Date Assessment LastModified [...] Appointments Establish ed 15 2025 10:30A M SINDY SAMPSON Not available Not available Not available Lab None recorded. Referral None recorded. Procedures None recorded. Surgeries None recorded. Imaging None recorded. Medication Orders None recorded. Patient TargetsNo targets recorded. Patient InstructionsNo instructions recorded. Reason for Referral None Reported. Problems Name Problem SNOMED Code Status Onset Date Resolution Date Notes Provider Name and Address Organization Details Recorded Time Impacted cerumen in left ear [id number] 26022 Active 2018 Impacted cerumen, left ear; Note: Date Diagnosed : 02/15/2019 11:37 AM (H61.22) Not Available [facility] 4 02:18:26 Impacted cerumen of bilateral ears [id number] 84734 Active 2018 Impacted cerumen, bilateral ; Note: Date Diagnosed : 9 2:01 PM (H61.23) SINDY FONG-Madhu [address] [facility],[place] [address], [facility] [place], [address] , [place] - [facility] [place] 5 15:00:12 Diffuse otitis externa 81859344 Active 2019 Diffuse otitis externa, right ear; Note: Date Diagnosed : 0 3:44 PM (H60.311) Not Available [facility] 4 02:18:24 Delayed milestone 793926472 Active 2021 Delayed milestone in childhood ; Note: Date Diagnosed : 05/14/2022 12:06 PM (R62.0) Not Available [facility] 4 02:18:51 Abnormal auditory perceptio n 15535969 Active 2021 Other abnormal auditory perceptio ns, bilateral ; Note: Date Diagnosed : 05/14/2022 12:06 PM (H93.293) Not Available [facility] 4 02:18:09 Foreign body in right ear [id number] 715667 Active 2021 Foreign body in right ear, initial encounter ; Note: Date Diagnosed : 05/14/2022 1:15 PM (T16.1XXA ) Not Available [facility] 4 02:18:47 Acute eczematoi d otitis externa 51363753 Active 2021 Acute eczematoi d otitis externa, bilateral ; Note: Date Diagnosed : 05/14/2022 1:16 PM (H60.543) Not Available [facility] 4 02:18:59 Acute myringiti s 566304 Active 2023 CONNOR NARAYAN PA-C [address] [place], [place] [address], [address] , [facility] - [facility] 4 11:32:58 Acute myringiti s 743817 Active 2023 CONNOR NARAYAN PA-C [address] [place], [place] [address], [address] , [facility] - [facility] 4 11:33:03 Problem Notes None recorded. Procedures Surgical History Date Name Laterality Status Provider Name and Address Organization Details Recorded Time 5 Cerumen removal without microscope bilat completed CONNOR NARAYAN PA-C [address] [place] [address] [place] [address], [place], [address], [place] - [facility] 05/28/2025 15:00:09 5 Cerumen removal without microscope bilat completed CONNOR NARAYAN PA-C [address] [facility] [facility] [place],[address], [place], [address], [place] - [facility] 02/22/2025 13:06:46 4 Cerumen removal without microscope bilat completed CONNOR NARAYAN PA-C [address] [facility] [address], [place], [address], [place] - [facility] 08/24/2024 11:03:07 4 Cerumen removal without microscope bilat completed CONNOR NARAYAN PA-C [address] [facility],[address], [address], [facility] - [facility] 05/11/2024 11:38:47 Imaging Results None recorded. Procedure Notes None recorded. Medical Equipment None Reported. Allergies Allergen ID Allergen Name Allergen Category Reaction Reaction Severity Criticality Documentation Date Start Date Code Code System Note Provider Name and Address Organization Details Recorded Time 267082 Keflex medicatio n Not available Not available Not available 08/24/2024 30157 7 RxNorm CONNOR NARAYAN PA-C [address] [facility],[address], [address], [facility] - [facility] 4 11:19:31 748236 Macrobid medicatio n Not available Not available Not available 08/24/2024 55378 1 RxNorm CONNOR NARAYAN PA-C [address] [facility],[address], [address], [facility] - [facility] 4 11:19:38 Medications Name Sig Start Date Stop Date Status Note LastModified by Organization Details LastModified Time Prescripti on - Prior Authorizat ion Request active Script Copy/Prior Auth^Scrip t Copy/Prior Auth_ Not Available Not Available Not Available oxcarbazep ine 150 mg tablet active Not Available Not Available Not Available Colace 100 mg capsule 2018 active Medication ID: [id number] Dexter nd Name: Colace Sen d Method: E-Prescrib ed Subs Allowed: subs OK Medicat ionGeneric Name: Colace Not Available Not Available Not Available risperidon e 4 mg tablet active Not Available Not Available Not Available Claritin 10 mg tablet 1 tablet by mouth 2018 active Medication ID: [id number] Dur ation Value: 30 Brand Name: Claritin S end Method: E-Prescrib ed Subs Allowed: subs OK Special Instructio n: take 1 tablet by mouth once daily Medi cationGene ricName: Claritin Not Available Not Available Not Available bacitracin 500 unit/gram topical ointment active Not Available Not Available Not Available Eucerin topical cream 2018 active Medication ID: [id number] Dexter nd Name: Eucerin Se nd Method: E-Prescrib ed Subs Allowed: subs OK Medicat ionGeneric Name: Eucerin Not Available Not Available Not Available oxcarbazep ine 300 mg tablet active Not Available Not Available Not Available terazosin 1 mg capsule active Not Available Not Available Not Available bacitracin zinc 500 unit/gram topical ointment 2018 active Medication ID: [id number] Dexter nd Name: bacitracin zinc Send Method: [...] 2 mg tablet 2018 active Medication ID: [id number] Dur ation Value: 28 Brand Name: diazepam [...] 2 mg tablet 2018 active Medication ID: [id number] Dexter johnson Name: guanfacine Send Method: E-Prescrib ed Subs Allowed: subs OK Medicat ionGeneric Name: guanfacine Not Available Not Available Not Available medroxypro gesterone 150 mg/mL intramuscu lar suspension active Not Available Not Available N ot Available Topamax 100 mg tablet 2018 active Medication ID: [id number] Dexter nd Name: Topamax Se nd Method: E-Prescrib ed Subs Allowed: subs OK Medicat ionGeneric Name: Topamax Not Available Not Available Not Available Vitamin C 500 mg capsule,ex tended release 2018 active Medication ID: [id number] Dexter johnson Name: Vitamin C Send Method: E-Prescrib ed Subs Allowed: subs OK Medicat ionGeneric Name: Vitamin C Not Available Not Available Not Available TobraDex 0.3 %-0.1 % eye drops,susp ension 2019 active Medication ID: [id number] Pre scribed By Name: Hero Mauro PA-C [...] disintegra ting tablet 2018 active Medication ID: [id number] Dexter johnson Name: risperidon e Send Method: [...] Available Artificial Tears 2018 active Medication ID: [id number] Dexter johnson Name: artificial tears Send Method: E-Prescrib ed Subs Allowed: subs OK Medicat ionGeneric Name: artificial tears Not Available Not Available Not Available Depo-Prove ra 2018 active Medication ID: [id number] Dexter nd Name: depo-prove ra Send Method: E-Prescrib ed Subs Allowed: subs OK Medicat ionGeneric Name: depo-prove ra Not Available Not Available Not Available Enulose 2018 active Medication ID: [id number] Dexter nd Name: enulose Se nd Method: E-Prescrib ed Subs Allowed: subs OK Medicat ionGeneric Name: enulose Not Available Not Available Not Available risperidon e 3 mg disintegra ting tablet 2018 active Medication ID: [id number] Dexter nd Name: risperidon e Send Method: [...] Eucerin Original lotion 2018 active Medication ID: [id number] Dexter nd Name: Eucerin Original S end Method: E-Prescrib ed Subs Allowed: subs OK Medicat ionGeneric Name: Eucerin Original Not Available Not Available Not Available guanfacine ER 2 mg tablet,ext ended release 24 hr 2018 active Medication ID: [id number] Dur ation Value: 28 Brand Name: guanfacine [...] tablet,ext ended release 2018 active Medication ID: [id number] Dexter nd Name: Myrbetriq Send Method: E-Prescrib [...] ICD10 Code Diagnosis IMO Codes Diagnosis Note [id number] CONNOR NARAYAN PA-C [facility] [address] [place] [address] 05/28/2025 14:54:45 05/28/2025 15:12:37 Impacted cerumen of bilateral ears [id number] 324424 H61.23 Health Concerns Section Related Observation LastModified by Organization Detai ls LastModified Time None Recorded Concern Status LastModified by Organization Details LastModified Time None Recorded Payers Encounter Date Sequence Insurance Name Policy Number Policy Moy Covered Member ID Moy Member ID Guarantor Name 05/28/2025 1 [place] [employer] Tres Davis [id number] Tres Davis 05/28/2025 2 [place] [facility] Tres Davis [id number] [facility] Notes Date Note Type Note Provider Name and Address Organization Details Recorded Time 05/28/2025 text/html ROS as noted in the HPI 34-year-old female presents for cerumen removal. Uses DermOtic for eczema of the ears. No concerns today. Accompanied by fpc staff member. BOLIVAR ECHAVARRIA MD [address] [place] [address], [place], [address], [facility] - [facility] 05/28/2025 20:53:45 OBGyn Episode No OBEpisode recorded.
--- OUTSIDE RECORDS SUMMARY | 2025-08-01 15:45 | XMS_ITS | Data Portability ---
Author Organization [place] - [facility] Address [address] [place] [address] Care Team Providers Care Cytotechnologist/Histotechnologist Name Role Phone DORETHASTEPHANIE Primary Care Provider [...] up in 3 months for routine debridement. [email or web address] Not available 05/28/2025 15:00:12 Plan of Treatment [...] 2023 024 [facility], [address] [facility], [place], [address], 08/24/2024 11:34:05 Patient TargetsNo targets recorded. Patient [...] Recorded Time Impacted cerumen in left ear [id number] 62668 Active 2018 Impacted cerumen, left ear; Note: Date Diagnosed : 02/15/2019 11:37 AM (H61.22) Not Available [facility] 02:18:26 Impacted cerumen of bilateral ears [id number] 70992 Active 2018 Impacted cerumen, bilateral ; Note: Date Diagnosed : 9 2:01 PM (H61.23) CONNOR NARAYAN PA-C [address], [place], [address] , [place] - [facility] 5 15:00:12 Diffuse otitis externa 25621290 Active 2019 Diffuse otitis externa, right ear; Note: Date Diagnosed : 0 3:44 PM (H60.311) Not Available [facility] 4 02:18:24 Delayed milestone 321959247 Active 2021 Delayed milestone in childhood ; Note: Date Diagnosed : 05/14/2022 12:06 PM (R62.0) Not Available [facility] 4 02:18:51 Abnormal auditory perceptio n 92596203 Active 2021 Other abnormal auditory perceptio ns, bilateral ; Note: Date Diagnosed : 05/14/2022 12:06 PM (H93.293) Not Available [facility] 4 02:18:09 Foreign body in right ear 41395852517 138790 Active 2021 Foreign body in right ear, initial encounter ; Note: Date Diagnosed : 05/14/2022 1:15 PM (T16.1XXA ) Not Available [facility] 4 02:18:47 Acute eczematoi d otitis externa 85773891 Active 2021 Acute eczematoi d otitis externa, bilateral ; Note: Date Diagnosed : 05/14/2022 1:16 PM (H60.543) Not Available [facility] 4 02:18:59 Acute myringiti s 569916 Active 2023 CONNOR NARAYAN PA-C [address] [facility] [place],[address], [place], [address] , [place] - [facility] 4 11:32:58 Acute myringiti s 707525 Active 2023 CONNOR NARAYAN PA-C [address], [place], [address] , [place] - [facility] 4 11:33:03 Problem Notes None recorded. Procedures Surgical History Date Name Laterality Status Provider Name and Address Organization Details Recorded Time 5 Cerumen removal without microscope bilat completed CONNOR NARAYAN PA-C [address] [place] [address], [address], [facility] - [facility] 05/28/2025 15:00:09 5 Cerumen removal without microscope bilat completed CONNOR NARAYAN PA-C [address] [place] [address], [address], [facility] - [facility] 02/22/2025 13:06:46 4 Cerumen removal without microscope bilat completed CONNOR NARAYAN PA-C [address] [place] [address], [address], [facility] - [facility] 08/24/2024 11:03:07 4 Cerumen removal without microscope bilat completed CONNOR NARAYAN PA-C [address] [place] [address], [address], [facility] - [facility] 05/11/2024 11:38:47 Imaging Results None recorded. Procedure Notes None recorded. Medical Equipment None Reported. Allergies Allergen ID Allergen Name Allergen Category Reaction Reaction Severity Criticality Documentation Date Start Date Code Code System Note Provider Name and Address Organization Details Recorded Time 385925 Keflex medicatio n Not available Not available Not available 08/24/2024 97250 7 RxNorm CONNOR NARAYAN PA-C [address] [place] [address], [address], [facility] - [facility] 4 11:19:31 818542 Macrobid medicatio n Not available Not available Not available 08/24/2024 86485 1 RxNorm CONNOR NARAYAN PA-C [address] [place] [address], [address], [facility] - [facility] 4 11:19:38 Medications Name Sig Start Date Stop Date Status Note LastModified by Organization Details LastModified Time Prescripti on - Prior Authorizat ion Request active Script Copy/Prior Auth^Scrip t Copy/Prior Auth_ 55 Not Available Not Available Not Available oxcarbazep ine 150 mg tablet active Not Available Not Available Not Available Colace 100 mg capsule 2018 active Medication ID: [id number] Dexter johnson Name: Colace Sen d Method: E-Prescrib ed Subs Allowed: subs OK Medicat ionGeneric Name: Colace Not Available Not Available Not Available risperidon e 4 mg tablet active Not Available Not Available Not Available Claritin 10 mg tablet 1 tablet by mouth 2018 active Medication ID: [id number] Dur ation Value: 30 Brand Name: Claritin S end Method: E-Prescrib ed Subs Allowed: subs OK Special Instructio n: take 1 tablet by mouth once daily Medi cationGene ricName: Claritin Not Available Not Available Not Available bacitracin 500 unit/gram topical ointment active Not Available Not Available Not Available Eucerin topical cream 2018 active Medication ID: [id number] Dexter nd Name: Eucerin Se nd Method: E-Prescrib ed Subs Allowed: subs OK Medicat ionGeneric Name: Eucerin Not Available Not Available Not Available oxcarbazep ine 300 mg tablet active Not Available Not Available Not Available terazosin 1 mg capsule active Not Available Not Available Not Available bacitracin zinc 500 unit/gram topical ointment 2018 active Medication ID: [id number] Dexter johnson Name: bacitracin zinc Send Method: E-Prescrib ed [...] 2 mg tablet 2018 active Medication ID: [id number] Dur ation Value: 28 Brand Name: diazepam [...] 2 mg tablet 2018 active Medication ID: [id number] Dexter nd Name: guanfacine Send Method: E-Prescrib ed Subs Allowed: subs OK Medicat ionGeneric Name: guanfacine Not Available Not Available Not Available medroxypro gesterone 150 mg/mL intramuscu lar suspension active Not Available Not Available N ot Available Topamax 100 mg tablet 2018 active Medication ID: [id number] Dexter johnson Name: Topamax Se nd Method: E-Prescrib ed Subs Allowed: subs OK Medicat ionGeneric Name: Topamax Not Available Not Available Not Available Vitamin C 500 mg capsule,ex tended release 2018 active Medication ID: [id number] Dexter johnson Name: Vitamin C Send Method: E-Prescrib ed Subs Allowed: subs OK Medicat ionGeneric Name: Vitamin C Not Available Not Available Not Available TobraDex 0.3 %-0.1 % eye drops,susp ension 2019 active Medication ID: [id number] Pre scribed By Name: Hero Mauro PA-C [...] disintegra ting tablet 2018 active Medication ID: [id number] Dexter nd Name: risperidon e Send Method: [...] Available Artificial Tears 2018 active Medication ID: [id number] Dexter nd Name: artificial tears Send Method: E-Prescrib ed Subs Allowed: subs OK Medicat ionGeneric Name: artificial tears Not Available Not Available Not Available Depo-Prove ra 2018 active Medication ID: [id number] Dexter nd Name: depo-prove ra Send Method: E-Prescrib ed Subs Allowed: subs OK Medicat ionGeneric Name: depo-prove ra Not Available Not Available Not Available Enulose 2018 active Medication ID: [id number] Dexter nd Name: enulose Se nd Method: E-Prescrib ed Subs Allowed: subs OK Medicat ionGeneric Name: enulose Not Available Not Available Not Available risperidon e 3 mg disintegra ting tablet 2018 active Medication ID: [id number] Dexter nd Name: risperidon e Send Method: [...] Eucerin Original lotion 2018 active Medication ID: [id number] Dexter nd Name: Eucerin Original S end Method: E-Prescrib ed Subs Allowed: subs OK Medicat ionGeneric Name: Eucerin Original Not Available Not Available Not Available guanfacine ER 2 mg tablet,ext ended release 24 hr 2018 active Medication ID: [id number] Dur ation Value: 28 Brand Name: guanfacine [...] tablet,ext ended release 2018 active Medication ID: [id number] Dexter nd Name: Myrbetriq Send Method: E-Prescrib [...] ICD10 Code Diagnosis IMO Codes Diagnosis Note [id number] CONNOR NARAYAN PA-C [facility] [address] [place] [address] 05/11/2024 11:30:34 05/11/2024 11:52:41 Impacted cerumen of bilateral ears [id number] 464783 H61.23 [id number] CONNOR NARAYAN PA-C [facility] [address] [place] [address] 08/24/2024 10:57:54 08/24/2024 11:26:55 Impacted cerumen of bilateral ears 9090426511 578952 H61.23 Acute myringitis 971742 H73.003 [id number] CONNOR NARAYAN PA-C [facility] [address] [place] [address] 11/09/2024 09:16:48 11/09/2024 09:44:43 Acute myringitis 061516 H73.003 [id number] CONNOR NARAYAN PA-C [facility] [address] [place] [address] 02/22/2025 13:00:10 02/22/2025 13:21:56 Impacted cerumen of bilateral ears 3832003802 447002 H61.23 [id number] CONNOR NARAYAN PA-C [facility] [address] [place] [address] 05/28/2025 14:54:45 05/28/2025 15:12:37 Impacted cerumen of bilateral ears 3235005797 280795 H61.23 Health Concerns Section Related Observation LastModified by Organization Detai ls LastModified Time None Recorded Concern Status LastModified by Organization Details LastModified Time None Recorded Advance Directives Directive None Recorded Payers Insurance Date Sequence Insurance Name Policy Number Policy Moy Covered Member ID Moy Member ID Guarantor Name 05/28/2025 1 [place] [employer] Tres Davis [id number] Tres Davis 05/30/2025 2 [place] Tres Davis [id number] Tres Davis Notes Date Note Type Note Provider Name and Address Organization Details Recorded Time 05/11/2024 text/html ROS as noted in the [facility] 33-year-old female presents for cerumen removal. Uses DermOtic for eczema of the ears. No concerns today. Accompanied by correction staff member. XIAO RICH MD [address] [place] [address], [address], [place] - [facility] [place] 05/12/2024 09:00:43 08/24/2024 text/html ROS as noted in the [facility] 34-year-old female presents for cerumen removal. Uses DermOtic for eczema of the ears. No concerns today. Accompanied by correction staff member. XIAO RICH MD [address] [place] [address], [address], [place] - [facility] 08/24/2024 16:30:02 11/09/2024 text/html ROS as noted in the [facility] 34-year-old female presents for follow up of ear infection. Used Ciprodex. No concerns today. Uses DermOtic for eczema of the ears. Accompanied by correction staff member. XIAO RICH MD [address] [place] [address], [address], [place] - [facility] 11/09/2024 16:29:50 02/22/2025 text/html ROS as noted in the [facility] 34-year-old female presents for cerumen removal. Uses DermOtic for eczema of the ears. No concerns today. Accompanied by correction staff member. XIAO RICH MD [address] [place] [address],[address], [address], [place] - [facility] 02/22/2025 17:23:54 05/28/2025 text/html ROS as noted in the HPI 34-year-old female presents for cerumen removal. Uses DermOtic for eczema of the ears. No concerns today. Accompanied by correction staff member. BOLIVAR ECHAVARRIA MD [address] [place] [address], [place], [address], [facility] - [facility] 05/28/2025 20:53:45 OBGyn Episode No OBEpisode recorded.
--- OUTSIDE RECORDS SUMMARY | 2025-08-01 15:45 | XMS_ITS | Clinical Summary ---
Author Organization [facility] Address [address] [place] [address] [place] [address] Phone Care Team Providers Care Senior Drupal Developer Name Role Phone Christiano Cronin MD Primary Care Provider [phone] Social History Tobacco Use Types Packs/Day Years Used Date Smoking Tobacco: Never Assessed Comments Unknown Sex and Gender Information Value Date Recorded Sex Assigned at Not on file Legal Sex Female 11:01 AM EST Gender Identity Not on file Sexual Orientation Not on file Plan of Treatment Not on file Medical Devices Not on file Insurance [facility] MEDICARE PART A & B [place] & [facility] PART [facility] B [place] & [place] & [place] & [place] & [place] & [place] PART A & B Care Teams Senior Drupal Developer Relationship Specialty Start Date End Date Christiano Cronin MD [address] [place] [address] Drive [address] [place] [address] PCP - General Internal Medicine 09/14/17 Additional Source Comments The information contained in this document represents components of the legal health record. It is not the complete legal health record.[facility]
== END 2025-08-01 14:12 | disposition home or self-care (01) ==
LOC: HO.HMCH 13:14
PROVIDERS: PCP Internal Medicine; Visit Provider Internal Medicine
DX: E03.9 Hypothyroidism, unspecified (principal); E66.09 Other obesity due to excess calories; Z68.30 Body mass index [BMI] 30.0-30.9, adult; R25.9 Unspecified abnormal involuntary movements; F84.0 Autistic disorder

== ENCOUNTER → 2025-08-01 13:13 | Outpatient (BNVA) | payer MEDICARE, MEDICAID, SELFPAY | PROVIDERS: PCP Internal Medicine; Visit Provider Internal Medicine | DX: E03.9 Hypothyroidism, unspecified (principal); E66.09 Other obesity due to excess calories; Z68.30 Body mass index [BMI] 30.0-30.9, adult; R25.9 Unspecified abnormal involuntary movements; Z71.3 Dietary counseling and surveillance | CPT/HCPCS: 99212 ==